=== PATIENT | male | born 1950 | race Caucasian/White ===

== ENCOUNTER → 2023-09-26 08:08 | Outpatient (REF) | payer MEDICARE, OTHER, SELFPAY ==
[2023-09-26 09:24] LABS: % Basophils 0.5 % (0-2); % Eosinophils 1.1 % (0-6); % Immature Granulocytes 0.5 % (0-0.5); % Lymphocytes 20.6 % (20.5-51.1); % Monocytes 12.5 % (1.7-9.3); % Neutrophils 64.8 % (42.2-75.2); Absolute Eosinophils 0.1 10^3/uL (0-0.7); Absolute Lymphocytes 1.3 10^3/uL (1.2-3.4); Absolute Monocytes 0.8 10^3/uL (0.1-0.6); Absolute Neutrophils 4.2 10^3/uL (1.4-6.5); Hematocrit 42.9 % (39.0-52.0); Hemoglobin 13.9 g/dL (13.0-18.0); Mean Corp Hgb Conc. 32.4 g/dL (33.0-37.0); Mean Corpuscular Hgb 28.1 pg (27.0-31.0); Mean Corpuscular Volume 86.8 fL (80.0-94.0); Mean Platelet Volume 11.1 fL (7.4-10.4); Nucleated Red Blood Cells % 0 % (-); Platelet Count 191 10^3/uL (130-400); Red Blood Cell Count 4.94 10^6/uL (4.70-6.10); Red Cell Dist. Width 13.6 % (11.5-14.5); White Blood Cell Count 6.5 10^3/uL (4.8-10.8)
[2023-09-26 09:53] LABS: ALT (SGPT) 38 U/L (0-50); AST (SGOT) 33 U/L (17-59); Albumin 4.6 g/dl (3.5-5.0); Alkaline Phosphatase 68 U/L (38-126); Blood Urea Nitrogen 14 mg/dl (9-20); Calcium 9.6 mg/dl (8.4-10.2); Carbon Dioxide 23 mmol/L (22-30); Chloride 107 mmol/L (98-107); Glucose 106 mg/dl (70-99); HDL Cholesterol 34 mg/dl; LDL Cholesterol, Calculated 79 mg/dl; Sodium 140 mmol/L (135-145); Total Bilirubin 0.8 mg/dl (0.2-1.3); Total Cholesterol 155 mg/dl (50-199); Total Protein 7.4 g/dl (6.3-8.2); Triglyceride 212 mg/dl (10-149); Very Low Density Lipoprotein 42 mg/dl (0-30); eGFR > 60.00
[2023-09-26 10:20] LABS: PSA, Total - Screen 2.71 ng/ml (0.0-4.0); TSH Reflex To Free T4 1.88 uIU/ml (0.47-4.68)
== END ==
LOC: REG 08:08
PROVIDERS: ATTENDING PHYSICIAN Family Medicine
DX: E78.2 Mixed hyperlipidemia (principal); R53.83 Other fatigue; Z51.81 Encounter for therapeutic drug level monitoring; Z12.5 Encounter for screening for malignant neoplasm of prostate
CPT/HCPCS: 36415; 80053; 80061; 84443; 85025; G0103

== ENCOUNTER → 2023-11-06 06:23 | Day surgery (SDC) | payer MEDICARE, OTHER, SELFPAY | LOC: GI 06:23 | PROVIDERS: ATTENDING PHYSICIAN Internal Medicine Gastroenterology | DX: Z12.11 Encounter for screening for malignant neoplasm of colon (principal); K64.8 Other hemorrhoids; K57.30 Diverticulosis of large intestine without perforation or abscess without bleeding; K63.5 Polyp of colon; Z86.010 Personal history of colon polyps | CPT/HCPCS: 45385; 45380; 88305 ==

== ENCOUNTER 2024-05-19 06:26 | Outpatient (RCR) | payer MEDICARE, OTHER, SELFPAY | END 2024-05-19 23:59 | disposition home or self-care (01) | LOC: RPT 06:26 | PROVIDERS: ATTENDING PHYSICIAN Family Medicine | DX: M54.16 Radiculopathy, lumbar region (principal); Z73.6 Limitation of activities due to disability | CPT/HCPCS: 97110; 97162 ==

== ENCOUNTER 2024-06-16 06:43 | Outpatient (RCR) | payer MEDICARE, OTHER, SELFPAY | END 2024-06-16 14:34 | disposition home or self-care (01) | LOC: RPT 06:43 | PROVIDERS: ATTENDING PHYSICIAN Family Medicine | DX: M54.16 Radiculopathy, lumbar region (principal); Z73.6 Limitation of activities due to disability | CPT/HCPCS: 97110; 97140 ==

== ENCOUNTER → 2024-09-29 07:49 | Outpatient (REF) | payer MEDICARE, OTHER, SELFPAY ==
[2024-09-29 08:46] LABS: % Basophils 0.5 % (0-2); % Eosinophils 1.1 % (0-6); % Immature Granulocytes 0.2 % (0-0.5); % Lymphocytes 29.9 % (20.5-51.1); % Monocytes 8.1 % (1.7-9.3); % Neutrophils 60.2 % (42.2-75.2); Absolute Eosinophils 0.1 10^3/uL (0-0.7); Absolute Lymphocytes 2.5 10^3/uL (1.2-3.4); Absolute Monocytes 0.7 10^3/uL (0.1-0.6); Absolute Neutrophils 5.1 10^3/uL (1.4-6.5); Hematocrit 44.2 % (39.0-52.0); Hemoglobin 13.8 g/dL (13.0-18.0); Mean Corp Hgb Conc. 31.2 g/dL (33.0-37.0); Mean Corpuscular Hgb 27.4 pg (27.0-31.0); Mean Corpuscular Volume 87.7 fL (80.0-94.0); Mean Platelet Volume 11.3 fL (7.4-10.4); Nucleated Red Blood Cells % 0 % (-); Platelet Count 221 10^3/uL (130-400); Red Blood Cell Count 5.04 10^6/uL (4.70-6.10); Red Cell Dist. Width 14.4 % (11.5-14.5); White Blood Cell Count 8.4 10^3/uL (4.8-10.8)
[2024-09-29 09:52] LABS: ALT (SGPT) 41 U/L (0-50); AST (SGOT) 30 U/L (17-59); Albumin 4.6 g/dl (3.5-5.0); Alkaline Phosphatase 59 U/L (38-126); Blood Urea Nitrogen 12 mg/dl (9-20); Calcium 9.3 mg/dl (8.4-10.2); Carbon Dioxide 26 mmol/L (22-30); Chloride 108 mmol/L (98-107); Glucose 102 mg/dl (70-99); HDL Cholesterol 31 mg/dl; LDL Cholesterol, Calculated 81 mg/dl; Sodium 140 mmol/L (135-145); Total Bilirubin 0.7 mg/dl (0.2-1.3); Total Cholesterol 144 mg/dl (50-199); Total Protein 7.4 g/dl (6.3-8.2); Triglyceride 161 mg/dl (10-149); Very Low Density Lipoprotein 32 mg/dl (0-30); eGFR > 60.00
[2024-09-29 10:26] LABS: PSA, Total - Screen 3.25 ng/ml (0.0-4.0); TSH Reflex To Free T4 1.79 uIU/ml (0.47-4.68)
== END ==
LOC: REG 07:49
PROVIDERS: ATTENDING PHYSICIAN Family Medicine
DX: R22.1 Localized swelling, mass and lump, neck (principal); E78.2 Mixed hyperlipidemia; Z12.5 Encounter for screening for malignant neoplasm of prostate
CPT/HCPCS: 36415; 80053; 80061; 84443; 85025; G0103

== ENCOUNTER 2024-11-30 01:39 | Inpatient (IN) | payer MEDICARE, OTHER, SELFPAY ==
[2024-11-29] VITALS (8 sets, daily range): BP systolic 146–210; BP diastolic 70–102; BMI 34.2
--- NOTE | 2024-11-29 22:41 | ED.GENMED ---
History of Present Illness
General
Chief Complaint: Chest Pain
Source: patient and ambulance crew
Time Seen by Provider: 11/29/24 22:40
History of Present Illness
History of Present Illness:
Tomorrow this patient is a 74-year-old male presents emergency department with reports of a 'sensation' in the left side of his chest radiating to his left arm that started approximately 930 tonight while getting ready to go to bed. Patient has
recently been suffering with lower back pain and just before bed put a 'heat patch' on the posterior back/hip area. With this sensation in his chest arm he also noted 'labored breathing' described as mild. He denies specific diaphoresis, nausea,
vomiting, neck pain, headache, dizziness, leg swelling, or other complaints. He has never had the symptoms before. Patient denies a prior cardiac history. He called medics, ECG was transmitted to me, and he was given 324 of aspirin on transport.
This has not changed his 3 out of 10 'sensation'. He was noted to be hypertensive on transport.
Past History
Past History
ED Past Medical History: None and Hypercholesterolemia
ED Past Surgical History: Other (Hernia repair X 3)
Social History
Tobacco: Former smoker (Smoked a pipe)
Alcohol: Occasional
Drug: None
Personal:
Living: alone
Phy Exam
Physical Exam
Physical Exam:
GENERAL: Alert , in no apparent distress
EYE: pupils equal and reactive
NECK: Supple, no significant adenopathy.
ENT: o/p clr, mmm.
CARDIAC: Regular rate and rhythm .
LUNGS: Clear breath sounds bilaterally, no acute respiratory distress, no wheezes/rales/rhonchi
ABDOMEN: Soft, without focal tenderness, no r/g, no cvat
NEUROLOGICAL: Alert and oriented, no focal neuro deficits
SKIN: Warm and dry, skin intact.
MUSCULOSKELETAL: No edema, well perfused.
PSYCH: Normal and appropriate interaction.
Scores
Heart Score for Chest Pain Patients
STEMI patient?: Not applicable
Course
Orders/Labs/Results
Orders:
Orders
11/29/24 22:33
Electrocardiogram (*1) Urgent
Reason for Study: Chest Pain
Cardiac Monitoring- Treatment ONCE
EKG- Treatment ONCE
IV Insert/Care/Rem.- Treatment PRN
O2 Therapy [RESP] Urgent
Titrate/Wean O2 to maintain O2 sat greater than (%): 90
Special Instructions: Maintain sats >/=90%
Pulse Ox/spot Check [RESP] Urgent
Quantity: 1
Special Instructions: ON ROOM AIR
11/29/24 22:40
Nitroglycerin Sublingual [Nitrostat (Sublingual)] 0.4 mg SL [id number] PRN
CR Chest Portable - 1 View Urgent
Comment:
Reason For Exam: cp
Reason Study Needs to be Portable: Unable to Transport
11/29/24 22:45
Heparin 4,000 units IV NOW STA
Heparin 83392 Units/250 ml 25,000 units in 250 ml IV PER PROTOCOL
Weight to be used for heparin protocol in kilograms (kg):: 102.1
Protocol:: Cardiac Tx/Acute Coronary
PTT Goal Range to be used:: PTT 73 to 111 seconds
Order type:: Initial
INITIAL Infusion Dose (UNITS/KG/hr) & then follow protocol:: 12 units/kg/hr
Infusion Dose in UNITS/hr & then follow protocol (UNITS/hr):: 1,000
INFUSION RATE in mL/hr & then follow protocol (mL/hr):: 10
PTT less than or equal to 64 seconds:: Increase rate by 200 units/hr (+ 2 mL/hr)
PTT 64.1 to 72.9 seconds:: Increase rate by 100 units/hr (+ 1 mL/hr)
PTT 73 to 111 seconds:: Target Range. No change in rate.
PTT 111.1 to 130.9 seconds:: Decrease rate by 100 units/hr (- 1 mL/hr)
PTT 131 to 199.9 seconds:: HOLD for 1 hr. Then decrease rate by 200 units/hr (- 2 mL/hr)
PTT greater than or equal to 200 seconds:: HOLD for 2 hrs & Notify Provider. Then decrease by 200 units/hr (-
2 mL/hr)
Lab follow-up:: Each change, PTT q6h until 2 consecutive are therapeutic. Then PTT
daily.
Nursing to Place Non Medication Order As Directed
Physician Order: PTT 6 hours after initial start of Heparin infusion
Above order entered?: Yes
11/29/24 22:50
Complete Blood Count/With Diff Urgent
Comprehensive Metabolic Panel Urgent
PTT Urgent
Prothrombin Time Urgent
Troponin I Urgent
11/29/24 23:37
EKG [Electrocardiogram (*1)] Urgent
Reason for Study: Chest Pain
EKG- Treatment ONCE
11/30/24 01:20
Admit/Transfer Patient As Directed
Co-Sign Provider:
Level of Care: Inpatient admission
Assign to:: IVU
Physician / Group: Luis
Diagnosis: NSTEMI / ACS
Reason for Hospitalization: NSTEMI / ACS
Expected length of stay greater than two midnights?: Yes
ELOS- Estimated Length of Stay in days: 2
I certify the patient meets the requirements for IP care: Yes
PRN Pain Medication Management As Directed
May give lesser potent ordered pain med per pt: Yes
preference::
Protocol:: Medication orders for pain may be administered in a
manner that supports deferring to patient preference
when the pt is:
- Requesting an ordered lesser potent pain medication.
Least to most potent pain medications are defined
as: acetaminophen < NSAID < tramadol < opioids
(morphine, oxycodone, hydromorphone).
- Requesting a lesser dose of the same medication IF
ORDERED.
- Requesting a less intrusive route of administration
if both routes are prescribed by the provider (PO <
IV).
11/30/24 01:21
Code Status As Directed
Resuscitation Status: Full Code
11/30/24 02:46
Acetaminophen [Tylenol] 650 mg PO Q4HPRN PRN
Morphine Sulfate 2 mg IV Q4HPRN PRN
11/30/24 02:46
CARDIOLOGY CONSULT Routine
Consulting Provider: Tad Craft
Was physician already notified: No
Reason for consult: NSTEMI / ACS
Consult Notification Routine
Specialty to Notify: Cardiology
Heparin Protocol- PTT Orders As Directed
PTT per Heparin protocol: -Obtain CBC and baseline PTT - if not already collected.
-Obtain PTT 6 hours from start of infusion. Then, every 6 hours until 2 consecutive
PTT's are therapeutic. Then, PTT Daily.
-With each rate change, obtain PTT every 6 hours until 2 consecutive PTT's are
therapeutic. Then, PTT Daily.
Activity As Directed
Activity Level: Bedrest
Bladder Scan As Directed
Follow Bladder Retention/Intermittent Cath Algorithm?: Yes
PRN if no void in __ hours: 6
Frequency: Per Retention Algorithm
If Bladder Scan Result >: 400
then:: Straight cath
EKG with chest pain [ECG as needed] As Directed
ECG as needed for:: Chest Pain
I/O [Intake/ Output] As Directed
Frequency: Per unit guidelines
Notify MD As Directed
Notify physician if: PTT is greater than or equal to 200.
Straight Cath As Directed
Frequency: Per Retention Algorithm
Additional Instructions: straight cath as needed per acute urinary retention algorithm for 24 hrs
Additional Instructions: for bladder scan greater than 400 mL
Vital Signs As Directed
Frequency: Per unit guidelines
Weight As Directed
Frequency: Daily
Oxygen Therapy [O2 Therapy] [RESP] Routine
Titrate/Wean O2 to maintain O2 sat greater than (%): 94
11/30/24 03:26
Basic Metabolic Panel IN AM
Cardiovascular Evaluation IN AM
Complete Blood Count/No Diff IN AM
Glycohemoglobin (HgbA1c) Routine
Troponin I Q6H
11/30/24 05:34
PTT Urgent
11/30/24 06:00
EKG [Electrocardiogram (*1)] IN AM
Reason for Study: Chest Pain
NPO
Allow oral meds: Yes
Allow clear liquids: Sips of Clears
Nitroglycerin Ointment [Nitro-Bid] 0.5 inch TOPICAL Q6
11/30/24 08:00
Aspirin Chewable [Low Strength Aspirin] 81 mg PO DAILY
Atorvastatin [Lipitor] 40 mg PO DAILY
11/30/24 08:46
Troponin I Q6H
11/30/24 14:46
Troponin I Q6H
12/02/24 06:00
Complete Blood Count/No Diff Q2D
Comment: notify provider: Platelet count < 130,000 or decrease by 50% from baseline
12/04/24 06:00
Complete Blood Count/No Diff Q2D
Comment: notify provider: Platelet count < 130,000 or decrease by 50% from baseline
12/06/24 06:00
Complete Blood Count/No Diff Q2D
Comment: notify provider: Platelet count < 130,000 or decrease by 50% from baseline
12/08/24 06:00
Complete Blood Count/No Diff Q2D
Comment: notify provider: Platelet count < 130,000 or decrease by 50% from baseline
12/10/24 06:00
Complete Blood Count/No Diff Q2D
Comment: notify provider: Platelet count < 130,000 or decrease by 50% from baseline
12/12/24 06:00
Complete Blood Count/No Diff Q2D
Comment: notify provider: Platelet count < 130,000 or decrease by 50% from baseline
12/14/24 06:00
Complete Blood Count/No Diff Q2D
Comment: notify provider: Platelet count < 130,000 or decrease by 50% from baseline
12/16/24 06:00
Complete Blood Count/No Diff Q2D
Comment: notify provider: Platelet count < 130,000 or decrease by 50% from baseline
Abnormal Lab Results
11/29/24
22:50
WBC 12.1 H 10^3/uL
(4.8-10.8)
MCHC 32.1 L g/dL
(33.0-37.0)
MPV 10.9 H fL
(7.4-10.4)
Abs Immat Gran (auto) 0.1 H 10^3/uL
(0-0.05)
Absolute Neuts (auto) 10.3 H 10^3/uL
(1.4-6.5)
Neutrophils % 85.2 H %
(42.2-75.2)
Lymphocytes % 9.9 L %
(20.5-51.1)
Carbon Dioxide 21 L mmol/L
(22-30)
Glucose 237 H mg/dl
(70-99)
11/29/24 22:50
11/29/24 22:50
Vital Signs
Initial and Last Documented VS:
Initial Vital Signs
BP
210/102
11/29/24 22:33
Last Documented Vital Signs
Temp Pulse Resp BP Pulse Ox
98 F 61 18 168/68 98
11/30/24 03:09 11/30/24 06:03 11/30/24 06:03 11/30/24 06:03 11/30/24 06:03
*Pulse Oximetry
SaO2: 99
Patient hypoxic: no
*Critical Care Note
Total Time (30-74mins, 75-104mins- exclusive of procedures): 32
Update Note
Update Note:
Patient presents to the Emergency Department with ____chest pain
Number and Complexity of Problems Addressed at the Encounter
� Chronic conditions affecting care:
� Acute Exacerbation and/or Progression of Chronic Illness:
� Differential Diagnosis includes: But not limited to STEMI, ACS, pericarditis, myocarditis, pleurisy, pneumonia, etc. etc.
Amount and/or Complexity of Data to be Reviewed and Analyzed
� I performed an independent evaluation of and my interpretation is:
EKG: Prehospital ECG noted to have ST inversions inferiorly and precordial leads associated with ST elevation in aVR. Subsequent ECG in the ER shows marked improvement. This was read by me, normal sinus rhythm, normal rate,
normal axis, no STEMI, very very subtle ST depression noted lateral precordial leads.
CT:
Xrays: Read by me and radiology NAD
Laboratory Studies: Troponin 0.031. Status post nitroglycerin, blood pressure markedly improved, pain now fully resolved, repeat ECG without any acute abnormalities to suggest STEMI.
Other:
� Review of other/old records reveals:
� Clinical information was obtained by an independent historian: EMS at bedside
� Prescriptions/Medications Considered but not given:
� Further testing considered but not performed:
Risk of Complications and/or Morbidity or Mortality of Patient Management
� Social determinants of health affecting care:
� Discussion with other providers (PCP, Hospitalists, Consultants, etc):
� Escalation of care including admission/observation vs risk of discharge considered: 10:44 PM patient seen and evaluated by me. Started on nitroglycerin, will monitor level of pain, clinical status, and blood pressure very
closely. Obvious concern for ACS although does not meet criteria for emergent catheterization at this time., Especially given meant in his ECG. Will continue to monitor closely for resolution of pain. Will start heparin drip. Do not have
clinical suspicion for dissection, pain not abrupt or sudden, no radiation to the back, etc. etc.
11:47 PM blood pressure improved, pain resolved, no acute changes on ECG. Heparin drip started, patient received aspirin and nitro. Will discuss with hospitalist for admission, cards consult in a.m. assuming patient remains pain-free, likely
catheterization.
ED Attending Note
-
Portions of this chart may have been created with voice recognition software.� Occasional wrong word or��sound alike� substitutions may have occurred due to the inherent limitations of voice recognition software.
Discharge Plan
Departure
Patient Disposition: Admit
Date of Disposition: 11/29/24
Time of Disposition: 23:47
Admit to doctor: luis
Presentation/result/management discussed w/ accepting MD/DO: Hospitalist
Condition: Fair
Discharge Problem:
Chest pain
Interventions
Interventions:
*Risk Screen - Suicide Last Done: 11/30/24 02:54
*General Assessment Last Done: 11/29/24 22:56
*Neglect/Abuse Screening Last Done: 11/29/24 22:56
*ED- Fall Risk Assessment Last Done: 11/29/24 22:56
*ED COVID-19 Vaccine History Last Done: 11/30/24 02:54
*Nursing Disposition Last Done: 11/30/24 02:32
ED- Cardiac Assessment Last Done: 11/29/24 23:00
Discharge Date and Time
Discharge Date/Time: 11/30/24 02:48
[2024-11-29] MEDS: NITROSTAT (SUBLINGUAL) 0.4 MG SL ×3 (22:55→23:26)
[2024-11-29 23:01] LABS: Hematocrit 43.6 % (39.0-52.0); Hemoglobin 14.0 g/dL (13.0-18.0); Mean Corp Hgb Conc. 32.1 g/dL (33.0-37.0); Mean Corpuscular Volume 84.0 fL (80.0-94.0); Nucleated Red Blood Cells % 0 % (-); Platelet Count 248 10^3/uL (130-400); Red Cell Dist. Width 13.9 % (11.5-14.5)
[2024-11-29 23:07] LABS: APTT 30.3 Sec (23.4-35.0); INR 0.96; PT 13.1 Sec (11.4-14.6)
[2024-11-29] MEDS: HEPARIN 4000 UNITS IV (23:15)
[2024-11-29] MEDS: HEPARIN 25000 UNITS/250 ML IV (23:16)
[2024-11-29 23:18] LABS: ALT (SGPT) 29 U/L (0-50); AST (SGOT) 28 U/L (17-59); Albumin 5.0 g/dl (3.5-5.0); Alkaline Phosphatase 64 U/L (38-126); Blood Urea Nitrogen 12 mg/dl (9-20); Calcium 9.5 mg/dl (8.4-10.2); Carbon Dioxide 21 mmol/L (22-30); Chloride 107 mmol/L (98-107); Estimated Creatinine Clearance 92 ml/min; Glucose 237 mg/dl (70-99); Potassium 4.4 mmol/L (3.5-5.1); Sodium 140 mmol/L (135-145); Total Protein 8.2 g/dl (6.3-8.2); eGFR > 60.00
[2024-11-29 23:21] LABS: Troponin I 0.031 ng/ml
[2024-11-30] VITALS (38 sets, daily range): BP systolic 115–188; BP diastolic 37–143; BMI 33.6
--- NOTE | 2024-11-30 01:24 | HPS.HSE ---
Family Physician
-
Family Physician: Fariba Martinez MD
Chief Complaint
-
Chest discomfort
History of Present Illness
Patient is a 74y M with PMH significant for obesity and dyslipidemia who presents to ED complaining of chest discomfort and dyspnea. Patient states that he recently developed L lower back discomfort. He was seen by his PCP today and given Rx
for a prednisone taper. He took his first dose around lunchtime with food. He felt well until this evening when he went to bed. He placed some heating patches on his low back. He notes that he was very restless, 'tossing and turning', which is
atypical for him. He then noted a numb / tingling sensation in the L chest - meena to your arm 'falling asleep'. He began to feel short of breath and flushed. No nausea or diaphoresis. He denies any prior history of similar symptoms. He called
[phone] and was brought to the ED for further evaluation and treatment.
Patient states that he has noted dyspnea with activity that has been gradually progressive over the past several months / one year.
Patient received 3 SL NTG and is currently resting comfortably in the ED. Pain free at present.
Medical History
Past Medical History
Past Medical History: Reports Other
Additional Past Medical History:
Obesity
Dyslipidemia
Past Surgical History: Reports Other
Additional Past Surgical History:
T&A
Hernia Repair
Social History
Tobacco: Non-smoker
Alcohol: None
Drug: None
Family History
Family History: Not pertinent
Allergies / Home Medications
Allergies reflects when Allergies were last updated in [facility].
Home Medications with original date entered in [facility]
Allergy/Medication List:
Allergies
Allergy/AdvReac Type Severity Reaction Status Date / Time
No Known Allergies Allergy Verified 11/29/24 22:36
Home Medications
atorvastatin 20 mg tablet 20 mg PO DAILY 10/04/22
ibuprofen 400 mg tablet 400 mg PO HS 10/04/22
omega 2-mbp-feq-fish oil 1,000 mg (120 mg-180 mg) capsule (Fish Oil) 2 cap PO DAILY 10/04/22
prednisone 10 mg tablets in a dose pack mg PO DAILY 11/29/24
Review of Systems
-
History Source: Patient
A 12 point ROS was completed and negative except as noted: Yes
Constitutional: Denies Fever, Fatigue or Chills
Respiratory: Reports Trouble Breathing; Denies Cough
Cardiac: Reports Chest Pain; Denies Diaphoresis, Palpitations or Syncope
Abdomen/GI: Denies Abdominal Pain, Nausea, Vomiting or Diarrhea
: Denies Dysuria or Frequency
Musculoskeletal: Reports Other (Back pain.); Denies Joint Pain or Edema
Neurological: Denies Dizzy or Headache
Physical Exam
Vital Signs
Vital Signs
Temp Pulse Resp BP Pulse Ox
98.1 F 75 20 163/68 98
11/29/24 22:37 11/30/24 01:15 11/30/24 01:15 11/30/24 01:00 11/30/24 01:15
Physical Exam
General: Other (74y M in no acute distress.)
HEENT: Moist mucous membranes and PERRLA
Respiratory: Clear; No Wheezes, Rales or Rhonchi
Cardiac: S1/S2 and Regular Rhythm; No Murmur
GI: Soft, Non Tender, Non Distended and Normal Bowel Sounds
Musculoskeletal: No Clubbing, No Cyanosis and No Edema
Neuro: AO x 3
Laboratory Results
-
11/29/24 22:50
11/29/24 22:50
Laboratory Results
PT 13.1 Sec (11.4-14.6) 11/29/24 22:50
INR 0.96 11/29/24 22:50
APTT 30.3 Sec (23.4-35.0) 11/29/24 22:50
Total Bilirubin 0.6 mg/dl (0.2-1.3) 11/29/24 22:50
AST 28 U/L (17-59) 11/29/24 22:50
ALT 29 U/L (0-50) 11/29/24 22:50
Alkaline Phosphatase 64 U/L (38-126) 11/29/24 22:50
Troponin I 0.031 ng/ml 11/29/24 22:50
Impression/Plan
-
A/P: Patient is a 74y M with PMH significant for obesity and dyslipidemia who presents to ED complaining of chest discomfort.
NSTEMI / ACS
- Admit for further evaluation and treatment.
- L sided chest discomfort this evening with associated dyspnea and flushing.
- Initial EKG with ST depressions in V3-6, II and aVF - improved on subsequent tracing after SL NTG.
- Currently pain free.
- No prior h/o heart disease, but patient admits to progressive exertional dyspnea x several months.
- IV heparin, ASA, statin, etc.
- Follow troponin to peak.
- Follow for new / recurrent symptoms.
- Cardiology consulted for additional recommendations / probable ischemic evaluation.
Hypertension without formal diagnosis
- BP elevated in the ED - significantly so on initial arrival.
- NTP for now and follow for improvement.
- Add beta-edgar, SHANTAL / ARB, etc as needed for BP control if persistent elevations.
Dyslipidemia
- Increase statin to high intensity dose.
Obesity due to excess calories
- Affects all aspects of care.
- Encourage healthy diet and activity as tolerated with goal of weight loss.
DVT Prophylaxis: On IV Heparin
Code Status: Full
[2024-11-30 03:40] LABS: Hematocrit 39.3 % (39.0-52.0); Hemoglobin 12.9 g/dL (13.0-18.0); Mean Corp Hgb Conc. 32.8 g/dL (33.0-37.0); Mean Corpuscular Volume 82.6 fL (80.0-94.0); Platelet Count 236 10^3/uL (130-400); Red Cell Dist. Width 13.9 % (11.5-14.5)
--- NOTE | 2024-11-30 03:42 | PTCARENOTE ---
Received pt from previous RN. Pt is AAOx3. NSR/sinus mary jane on the monitor. Pt on RA O2 sat 97%, lungs clear. Pt uses the urinal in bed. Skin c/d/i. Heparin gtt @ 1000 units/hr (see worklist). AM labs provided. CHG bath provided. Call bermudez in reach.
Safe environment maintained.
[2024-11-30 04:07] LABS: Blood Urea Nitrogen 11 mg/dl (9-20); Calcium 9.1 mg/dl (8.4-10.2); Carbon Dioxide 20 mmol/L (22-30); Chloride 111 mmol/L (98-107); Estimated Creatinine Clearance 91 ml/min; Glucose 115 mg/dl (70-99); HDL Cholesterol 41 mg/dl; LDL Cholesterol, Calculated 89 mg/dl; Potassium 4.3 mmol/L (3.5-5.1); Sodium 140 mmol/L (135-145); Very Low Density Lipoprotein 28 mg/dl (0-30); eGFR > 60.00
[2024-11-30 04:22] LABS: Troponin I 3.550 ng/ml
[2024-11-30] MEDS: NITRO-BID 0.5 INCH TOPICAL ×4 (05:25→23:15)
[2024-11-30 06:23] LABS: APTT 41.9 Sec (23.4-35.0)
[2024-11-30] MEDS: NITROSTAT (SUBLINGUAL) 0.4 MG SL (06:39)
--- NOTE | 2024-11-30 06:40 | PTCARENOTE ---
GORING CUTTER notified about pts BP, nitrostat SL given per GORING CUTTER (see MAR).
--- NOTE | 2024-11-30 07:25 | PTCARENOTE ---
0700 assumed care. patient in bed. Heparin infusing at 1,200/12 ml. Next PTT schedule for 12:30 Denies chest pain, nausea, dizziness, dyspnea. BP 160/72 MAP 97; Normal Sinus Bradycardia 56 RR 16; SpO2 97RA. NPO at this time. Call bermudez within reach
[2024-11-30] MEDS: LOW STRENGTH ASPIRIN 81 MG PO (07:29)
--- NOTE | 2024-11-30 07:45 | W.PN.HOSP.TC ---
Today's Communication/Plan
-
Heparin Drip
Cardiac cath
Assessment / Plan
Assessment / Plan
Physical Exam
General: Other (74y M in no acute distress.)
HEENT: Moist mucous membranes and PERRLA
Respiratory: Clear; No Wheezes, Rales or Rhonchi
Cardiac: S1/S2 and Regular Rhythm; No Murmur
GI: Soft, Non Tender, Non Distended and Normal Bowel Sounds
Musculoskeletal: No Cyanosis and No Edema
Neuro: AO x 3
Assessment/Plan
74y M with PMH significant for obesity and dyslipidemia who presented to the [facility] ED complaining of chest discomfort and dyspnea. Patient states that he recently developed L lower back discomfort. He was seen by his PCP on 11/29/24 and given Rx
for a prednisone taper. He took his first dose around lunchtime with food. He felt well until that same evening when he went to bed. He placed some heating patches on his lower back. He notes that he was very restless, 'tossing and turning',
which is atypical for him. He then noted a numb / tingling sensation in the L chest - meena to one's arm 'falling asleep'. He began to feel short of breath and flushed. No nausea or diaphoresis. He denied any prior history of similar symptoms.
He called 911 and was brought to the ED for further evaluation and treatment.
Patient states that he has noted dyspnea with activity that has been gradually progressive over the past several months / one year.
Patient received 3 SL NTG and symptoms resolved in the ED.
NSTEMI / ACS
- L sided chest discomfort with associated dyspnea and flushing.
- Initial EKG with ST depressions in V3-6, II and aVF - improved on subsequent tracing after SL NTG.
- Currently pain free.
- No prior h/o heart disease, but patient admits to progressive exertional dyspnea x several months.
- IV heparin, ASA, statin, etc.
- Follow troponin to peak.
- Follow for new / recurrent symptoms.
- Cardiology consulted for additional recommendations / probable ischemic evaluation -- cardiac cath panned
Hypertension without formal diagnosis
- BP elevated in the ED - significantly so on initial arrival.
- NTP for now and follow for improvement.
- Add beta-edgar, SHANTAL / ARB, etc as needed for BP control if persistent elevations.
Dyslipidemia
- Increase statin to high intensity dose.
Leukocytosis
- Likely from Prednisone
Low back pain outpatient -- RESOLVED
-Stopped Prednisone which was started on 11/29/24
-Leukocytosis is likely from Prednisone
Obesity due to excess calories
- Affects all aspects of care.
- Encourage healthy diet and activity as tolerated with goal of weight loss.
DVT Prophylaxis: On IV Heparin
Code Status: Full Code
Anticipated Discharge: 24 - 48 hours
Subjective/Interval History
-
Date of Service: November 30, 2024
Patient was seen and examined. He denied any chest pain or any other new symptoms.
Objective Data
-
Labs:
Laboratory Results
11/29/24 11/30/24 11/30/24
22:50 03:26 05:34
WBC 12.1 H 16.1 H
Hgb 14.0 12.9 L
Hct 43.6 39.3
Plt Count 248 236
PT 13.1
INR 0.96
APTT 30.3 41.9 H
Sodium 140 140
Potassium 4.4 4.3
Chloride 107 111 H
Carbon Dioxide 21 L 20 L
BUN 12 11
Creatinine 0.8 0.8
Glucose 237 H 115 H
Calcium 9.5 9.1
Total Bilirubin 0.6
AST 28
ALT 29
Alkaline Phosphatase 64
11/30/24
12:30
WBC
Hgb
Hct
Plt Count
PT
INR
APTT Pending
Sodium
Potassium
Chloride
Carbon Dioxide
BUN
Creatinine
Glucose
Calcium
Total Bilirubin
AST
ALT
Alkaline Phosphatase
Vital Signs:
Vital Signs
Temp Pulse Resp BP Pulse Ox
98 F 68 16 160/72 96
11/30/24 03:09 11/30/24 07:00 11/30/24 07:00 11/30/24 07:00 11/30/24 07:00
I&O
11/29/24 11/30/24 12/01/24
06:59 06:59 06:59
Intake Total 40 / 40
Output Total 900 / 900
Balance -860 / -860
[2024-11-30 08:12] LABS: Glycohemoglobin (HgbA1c) 5.7 % (4.0-5.6)
--- NOTE | 2024-11-30 08:24 | CON.CAR ---
Addendum entered and electronically signed by Tad Francisco MD 11/30/24 11:53:
Attending addendum: This is a 74-year-old gentleman with a past medical history notable for hyperlipidemia who presented to [facility] emergency department for evaluation of acute on chronic chest discomfort and exertional intolerance. The
patient reports that he has experienced a significant decline in his functional capacity over the past 6 to 12 months. 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 He states that
over the past 6-12 months that he has to stop and rest sitting down for a few minutes before continuing to work. His symptoms typically had only happened when walking up the hill towards work but several months ago began happening when walking down
the hill to go back to his car. Last evening he had just been started on a steroid taper for back discomfort and noted the onset of chest and shoulder discomfort beginning as he lay down to go to sleep. He called 911 and was transferred to . He
became chest pain free shortly after arrival. His initial troponin measured 0.031 ng/ml and increased to 10.1 ng/ml this am. He is now referred for cardiac evaluation
Physical Exam:
GEN: AAO x 3.��No acute distress
HEENT:��NC/AT, sclera are anicteric, hearing and nares are normal.�
NECK: Supple.��Normal JVP
LUNGS: Clear to bases bilaterally.��No wheezing or rhonchi
CV: Regular rate and rhythm.��Normal S1/S2.��Murmur: None
ABD : Soft, NT, ND, Bowel sounds are present.
EXT: No CCE. Good radial pulse
NEURO: No focal neurologic deficits
Troponin: current 10.1
IMPRESSION:
-NSTEMI
-Chronic stable anginal symptoms with recent change
-Hypertensive blood pressure readings
-Mixed hyperlipidemia
RECOMMENDATIONS:
-Planned referral for coronary angiography: risks and benefits explained
-Trend troponin to peak
-High intensity statin for goal LDL less than 55
-Guideline directed therapy for blood pressures
-Further management based on angiographic findings
Original Note:
Consultation
Consultation Request
Date/Time Consultation Requested: 11/30/2024
Date/Time Consultation Performed: 11/30/2024
Requesting Provider: Dr. Connell
Performing Provider: Rubia Gandhi PA-C for Dr. Francisco
Reason for Consultation: Chest pain, NSTEMI
Medical History
-
History of Present Illness:
Patient is a 74 year old male with past medical history significant for hyperlipidemia obesity and osteoarthritis who presents to emergency department 11/29/2024 with acute onset of left-sided chest discomfort, left arm pain and restlessness.
Patient reports he has been dealing with intermittent low back pain which he thinks was a result of injury secondary to overdoing it with stretching and claribel chi. He was prescribed prednisone yesterday by PCP and took 1 dose last evening. He then
went to bed and was very restless. In the middle of the night he woke with acute onset left-sided chest pain radiating down his arm and some mild shortness of breath. When symptoms persisted he called 911. Patient was provided aspirin en route
via EMS. He was found to be hypertensive on arrival with blood pressure of 210/102. Patient was provided sublingual nitroglycerin and started on IV heparin. Chest x-ray showed no acute cardiopulmonary abnormality. EKG demonstrated sinus rhythm
with nonspecific ST abnormality. Initial troponin was negative however repeat troponin was 3.55. Patient also started on Nitropaste for ongoing hypertension. Overnight he was then started on IV nitroglycerin given blood pressure remained elevated.
At time of this evaluation patient currently on IV heparin, IV nitroglycerin and is chest pain-free. Third set of troponin is pending
PMH:
Hyperlipidemia
Obesity
Osteoarthritis
Hernia with repair
Past Medical History
Past Medical History: Other (See HPI)
Past Surgical History: Tonsilectomy and Other (Inguinal Hernia repair 1984)
Social History
Tobacco: Non-Smoker
Alcohol: Other (rare)
Drug: None
Personal:
Living: Alone
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
Family History
Family History: CAD (father CAD in 60's)
Allergies / Home Medications
Allergy/AdvReac Type Severity Reaction Status Date / Time
No Known Allergies Allergy Verified 11/29/24 22:36
�Medication �Instructions �Recorded �Confirmed �Type
atorvastatin 20 mg tablet 20 mg PO DAILY 10/04/22 11/29/24 History
ibuprofen 400 mg tablet 400 mg PO HS 10/04/22 11/29/24 History
omega 0-rar-gap-fish oil 1,000 mg 2 cap PO DAILY 10/04/22 11/29/24 History
(120 mg-180 mg) capsule (Fish Oil)
prednisone 10 mg tablets in a dose mg PO DAILY 11/29/24 History
pack
Review of Systems
-
History Source: Patient
All other systems: Negative unless noted
Physical Exam
Vital Signs
Temp Pulse Resp BP Pulse Ox
98.3 F 68 16 160/72 96
11/30/24 08:00 11/30/24 07:00 11/30/24 07:00 11/30/24 07:00 11/30/24 07:00
GEN: No distress, awake, Ox3, lying in bed
HEENT: supple, anicteric, mmm
LUNGS: CTA, no wheezes/rales
CV: Reg, S1/S2, no murmur, rub or gallop
ABD: soft, BS+, NT/ND
EXT: No edema, clubbing or cyanosis
NEURO: Gross non-focal
SKIN: No rash, warm, dry
Lab Results
11/30/24 03:26
11/30/24 03:26
Troponin I 3.550 ng/ml H* D 11/30/24 03:26
Impression / Plan
-
PCP: Fariba Verduzco
Insurance Agents Supervisor: None prior to admission
Impression:
Presented 11/29/2024 with acute left sided chest pain, left arm pain and worsening dyspnea on exertion
NSTEMI
Hypertensive urgency
Hyperlipidemia
Obesity
Osteoarthritis
Hernia with repair
Echo 11/30/2024: pending
Plan:
Presented 11/29/2024 with acute left sided chest pain, left arm pain and worsening dyspnea on exertion.
Initial troponin unremarkable however repeat troponin elevated at 3.55 concerning for NSTEMI. Repeat troponin ordered
EKG with nonspecific ST-T wave abnormality.
Patient currently chest pain-free on IV heparin and nitroglycerin
Urgent echo ordered and pending
Will need ischemic evaluation therefore keep n.p.o. most likely would favor cardiac catheterization. Procedure discussed with the patient
Patient loaded with aspirin enroute to hospital. Continue aspirin 81 mg daily
Lipids on Lipitor 10 mg TC 158, HDL 41, LDL 89, triglycerides 143. Uptitrate atorvastatin to 40 mg
Hemoglobin A1c 5.7%
Hypertensive urgency
Needs better treatment of blood pressure.
Eventual addition of SHANTAL-I/ARB and/or calcium channel edgar. Unfortunately he has been bradycardic on telemetry which may limit initiation of beta-edgar
Plan was discussed with patient, hospitalist and nursing
HPI 11/30/2024:
Patient is a 74 year old male with past medical history significant for hyperlipidemia obesity and osteoarthritis who presents to emergency department 11/29/2024 with acute onset of left-sided chest discomfort, left arm pain and restlessness.
Patient reports he has been dealing with intermittent low back pain which he thinks was a result of injury secondary to overdoing it with stretching and claribel chi. He was prescribed prednisone yesterday by PCP and took 1 dose last evening. He then
went to bed and was very restless. In the middle of the night he woke with acute onset left-sided chest pain radiating down his arm and some mild shortness of breath. When symptoms persisted he called 911. Patient was provided aspirin en route
via EMS. He was found to be hypertensive on arrival with blood pressure of 210/102. Patient was provided sublingual nitroglycerin and started on IV heparin. Chest x-ray showed no acute cardiopulmonary abnormality. EKG demonstrated sinus rhythm
with nonspecific ST abnormality. Initial troponin was negative however repeat troponin was 3.55. Patient also started on Nitropaste for ongoing hypertension. Overnight he was then started on IV nitroglycerin given blood pressure remained elevated.
At time of this evaluation patient currently on IV heparin, IV nitroglycerin and is chest pain-free. Third set of troponin is pending
Data Reviewed
-
EKG: Report Reviewed by me, Discussed with Physician, Discussed with Nurse and Discussed with Patient
Radiology: Report Reviewed by me, Discussed with Physician, Discussed with Nurse and Discussed with Patient
Labs: Labs Reviewed by me, Discussed with Physician, Discussed with Nurse, Discussed with Patient and Discussed with Family
Old Records: Reviewed
[2024-11-30 08:44] LABS: Hepatitis C Antibody Negative (Negative)
[2024-11-30 09:53] LABS: Troponin I 10.100 ng/ml
--- NOTE | 2024-11-30 11:52 | PTCARENOTE ---
Transfer to earthmoving labourer
[2024-11-30 12:28] LABS: ACT-LR - POC 240 Seconds (116-155)
--- NOTE | 2024-11-30 12:58 | PTCARENOTE ---
12:50 Patient returned from cath lab radiological technologist. per report patient had left heart cath. [place] via Rt radial. Band placed at 12:25. per Cath staff recommendations, since patient received 6,000 Heparin to start taking air after one and half hour after it was
placed which schedule for 13:50 .
patient AAO x 3; BP 145/58 MAP 83; Bradycardic 52. Right arm: able to move finger, denies pain, no bleeding, no swelling, no bruising. VS will be checked per protocol postop. Diet changed to Low Cholesterol diet
--- NOTE | 2024-11-30 13:52 | ITS.CL.CATH ---
High Speed Operator - Catheterization
Cardiac Catheterization
Procedure Report:
LEFT HEART CATHETERIZATION
Date of Procedure: November 30, 2024
Referring: [facility] Emergency Department
PROCEDURES:
1. Left heart catheterization with coronary and single-plane left ventriculography
INDICATION: This is a 74-year-old gentleman with a past medical history notable for hyperlipidemia who presented to [facility] emergency department for evaluation of acute on chronic chest discomfort and exertional intolerance. The patient
reports that he has experienced a significant decline in his functional capacity over the past 6 to 12 months. 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 He states that over the
past 6-12 months that he has to stop and rest while walking to work. His symptoms improve over several minutes then he can continue to walk the rest of the way to work. His symptoms typically happened when walking up the hill towards work but
several months ago began noticing symptoms when walking down the hill as he returned to his car. Last evening he experienced the new onset of chest heaviness and left shoulder discomfort as he he lay down to go to sleep. He called 911 and was
transferred to . He became chest pain free shortly after arrival. His initial troponin measured 0.031 ng/ml and increased to 10.1 ng/ml this am.
ACCESS: Right radial artery, 6 Serbian sheath
HEMODYNAMICS : (mmHg)
AO (s/d) : 142/62, 82
LV (s/d) : 143/17
LVEDP : 31
CORONARY FINDINGS
DOMINANCE: Right
LEFT MAIN: Short and obstructive
LEFT ANTERIOR DESCENDING: The LAD arises normally from the left main and runs in the anterior interventricular groove. There is a 60% proximal LAD stenosis and tandem 90% proximal and mid LAD stenosis beginning just proximal to the first septal
signwriter and extending beyond a moderate caliber first diagonal branch. The LAD is moderately calcified. The mid LAD beyond the diagonal branch has minor irregularities but no focal obstructive stenosis in the distal vessel wraps around the
apex. A small-medium caliber first diagonal branch has an 80% ostial stenosis
CIRCUMFLEX: The circumflex is a medium caliber nondominant vessel that supplies a single sizable obtuse marginal branch. There is a 50% proximal circumflex stenosis and diffuse luminal irregularities in the large obtuse marginal branch.
RIGHT CORONARY ARTERY: 100% occluded proximally with the distal vessel filling via well-developed right to right and [id number] collaterals
VENTRICULOGRAPHY: Left ventriculography is performed in an VILLASENOR projection. The digital single-plane left ventricular ejection fraction is estimated greater than 65%
SEDATION: 37 minutes of procedural sedation was utilized. An independent faculty i on call medical assistant was present to assist with and help manage the patient's level of consciousness and physiologic status.
RADIATION SUMMARY: Fluoro Time (min): 3.3, Dose (mGy): 601, DAP (Gy.cm2) : 47.2
Closure Device: TR band
CONCLUSIONS
1. Proximal to mid LAD atherosclerotic disease and chronic total occlusion of the proximal RCA. Moderate coronary disease in the mid circumflex and high-grade stenosis at the origin of small to medium caliber diagonal branch
2. Preserved LV systolic function
RECOMMENDATIONS
1. Consult CT surgery
2. Continue to trend serial troponin levels and change statin from moderate to high intensity therapy. Will pursue guideline directed medical therapy for blood pressure control with a goal of less than 130/80
Copy to: Dr. Tad Francisco
--- NOTE | 2024-11-30 14:27 | PTCARENOTE ---
Addendum entered by Cher Rose RN 11/30/24 14:30:
wrong patient
Original Note:
1 unit PRBC : Ended at 14:25 VSS: 98.8 (PO)-HR 12 ST; BP via left upper arm: 114/66; RR 26 -SpO2: 96%/2L
--- NOTE | 2024-11-30 15:16 | CM ---
Pt was post cardiac cath today. Spoke with son Dat goss lives alone in an apartment with 2 steps to enter and an elevator.Prior to admission he drove and was independent. He uses no adaptive devices.
He has no hx of VN nor SNF
Pharmacy [facility] [address] [place]
PCP Dr Martinez
PLAN Will depend on hospital course of care
--- NOTE | 2024-11-30 15:39 | CONSULT.CT ---
Consultation
-
Date/Time Consultation Requested: 11/30/24 1330
Date/Time Consultation Performed: 11/30/24 1600
Requesting Provider: Dr. Tad Francisco
Performing Provider: DANITA Jhaveri for Dr. Duc Orlando
Reason for Consultation: NSTEMI, CABG evaluation
Patient History
Physicians
Family Physician: Dr. Fariba Verduzco
Outpatient Boiler Assistant Operator: None
Inpatient Boiler Assistant Operator: [facility]
History of Present Illness
Mr. Brando Sadler is a pleasant 74-year-old male with a PMHx significant for dyslipidemia, obesity, and familial CAD who presented to [facility] with complaints of progressive dyspnea on exertion and chest discomfort. Mr. Sadler reports his dyspnea has
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
extremity weakness, and dyspnea. He has recently endured lower back discomfort after lifting heavy boxes at work which led him to see his PCP on 11/29/2024. At that time, he was initiated on prednisone. That evening, he reported having
dull, left-sided, substernal chest pain that radiated to his left arm. He denied any diaphoresis, lightheadedness, dizziness, PND, orthopnea, abdominal distention, or lower extremity edema. This discomfort led him to call 911 in which he received
3 sublingual nitroglycerin with resolution of symptoms upon ED arrival. Initial EKG showed ST depression in V3-6, II, and aVF, with improvement of EKG changes with initiation of NTG. Troponin level was elevated and patient ruled-in for NSTEMI.
Cardiology was consulted in which TTE was obtained which showed normal EF, no regional wall motion abnormality, and no significant valvular heart disease. He underwent a left heart cath on 11/30/[address] Francisco which revealed 100% occlusion of
RCA and disease of proximal to mid LAD involving the diagonal. Cardiac surgery was consulted for consideration of CABG.
Past Medical History
Past Medical History: Angina, JEREZ and Other
Dyslipidemia, Obesity
Past Surgical History
Past Surgical History: Tonsilectomy and Other
Hernia repair
Family History
Father: at Age (60's)
Family Medical History: CAD, Diabetes and Sudden (Father 64, etiology unknown)
Social History
Alcohol: Occasional
Drug: None
Tobacco: Former Smoker
Personal:
Living: Alone
Employment: Employed
Allergies
Allergy/AdvReac Type Severity Reaction Status Date / Time
No Known Allergies Allergy Verified 11/29/24 22:36
Home Medications
�Medication �Instructions �Recorded �Confirmed �Type
atorvastatin 20 mg tablet 20 mg PO HS 10/04/22 11/30/24 History
ibuprofen 400 mg tablet 400 mg PO HS 10/04/22 11/29/24 History
omega 2-dzb-otq-fish oil 1,000 mg 2 cap PO HS 10/04/22 11/30/24 History
(120 mg-180 mg) capsule (Fish Oil)
prednisone 10 mg tablets in a dose mg PO DAILY 11/29/24 History
pack
Review of Systems
-
History Source: Patient
General: Reports No Symptoms
HEENT: Reports No Symptoms
Respiratory: Reports JEREZ
Cardiac: Reports No Symptoms
Abdomen/GI: Reports No Symptoms
: Reports No Symptoms
Musculoskeletal: Reports Other (lower back pain)
Skin: Reports No Symptoms
Neurological: Reports No Symptoms
Vascular: Reports No Symptoms
Physical Exam
Vital Signs
Temp 98.2 F 11/30/24 13:17
Temp route: Oral 11/30/24 13:17
Pulse 56 11/30/24 13:38
Rhythm: Sinus bradycardia 11/30/24 08:06
With- Sinus bradycardia 11/30/24 03:39
Resp Rate 21 11/30/24 11:15
Blood pressure 150/63 11/30/24 13:38
Position: Lying 11/30/24 13:17
MAP (cuff-Brad Monitor) 80 11/30/24 11:00
SaO2 97 11/30/24 11:00
Oxygen Mode of Delivery Room air 11/30/24 07:24
Can the patient verbally communicate their pain? Yes 11/30/24 08:06
Pain scale ratin 11/30/24 06:44
Actual Weight 100.1 kg 11/30/24 02:47
Body Mass Index (BMI) 33.6 11/30/24 02:47
Labs
11/30/24 03:26
11/30/24 03:26
PT 13.1 Sec (11.4-14.6) 11/29/24 22:50
APTT Cancelled 11/30/24 12:30
Hemoglobin A1c 5.7 % (4.0-5.6) H 11/30/24 03:26
Troponin I 10.100 ng/ml H* D 11/30/24 08:56
Exam
General: Well Developed, Well Nourished, No Apparent Distress and Comfortable
HEENT: Normocephalic, Moist Mucous Membranes, PERRLA and EOMI
Respiratory: Clear
Cardiac: S1/S2 and Regular Rhythm
GI: Soft, Non Tender, Non Distended and Normal Bowel Sounds
Skin: Warm, Dry and Other (R Radial TR band present)
Neuro: Awake, Alert, Oriented, AO x 3 and No Motor Deficits
Extremities: Pulses (+2 Radial B/L, +2 DP B/L)
Psych: Calm
Assessment / Plan
-
#Coronary Artery Disease with NSTEMI
- Continue care as directed by primary team
- Patient's case will be discussed with Attending Physician.
- Further details regarding surgical timing will be determined after Attending Physician's full evaluation.
- Routine preoperative CTS orders initiated:
- Pre-op labwork, including T & S
- Cerebrovascular US
- CT Chest
- STS risk stratification score will be calculated after preoperative testing is completed.
Data Reviewed
-
EKG: Report Reviewed by me
Flight Engineer Inspector: Report Reviewed by me
Echo: Report Reviewed by me
Labs: Labs Reviewed by me
--- NOTE | 2024-11-30 16:33 | PTCARENOTE ---
Band RT radial off . covered by 2X 2 and Tegaderm
--- NOTE | 2024-11-30 17:12 | PTCARENOTE ---
Heparin resumed per order at 16:30 per previous rate 12ml/1,200 units Next PTT schedule at 22:45. Patient will be taking for preop CT chest and CR chest 2 View. Then will be transfer to IVU. Report given prior to transfer
pt AAO x 3
BP 148/58 MAP 85 Normal Sinus Rhythm 63; RR 19 POx 98%RA. Denies chest pain no edema
Lungs clear ; SpO2: 98% RA Denies dyspnea
Abdomen soft non-tender +Bowel movement today
Urinates in a urina clear yellow urine
Peripheral line: RT capped flushed; Left: # 22 Heparin infusing at 12ml
--- NOTE | 2024-11-30 17:50 | PTCARENOTE ---
Received pt from ICU, VSS, monitor showing NSR. Denies CP/SOB at present. Right radial site with dressing c/d/i, no bleeding or hematoma noted. Hep gtt @ 1200u/hr. Oriented to room, call bermudez in reach.
[2024-11-30] MEDS: LIPITOR 80 MG PO (18:04)
[2024-11-30 19:06] LABS: Troponin I 6.060 ng/ml
[2024-11-30 22:22] LABS: B.E. 0.5 mmol/L; HCO3 24.6 mmol/L (21-28); O2 Saturation % 99.0 % (94-98); PCO2 37 mmHg (35-48); PO2 92 mmHg (83-108)
[2024-11-30 23:05] LABS: APTT 66.7 Sec (23.4-35.0)
--- NOTE | 2024-11-30 23:39 | PTCARENOTE ---
Tele monitor remains SB-NSR, HR in the 50-60's at rest. Pt denies any pain or SOB. Right radial dressing intact w/ positive pulse. Pt aware about right radial activity restrictions. IV Heparin gtt infusing at 1300units/hr, next ptt due at 05:15.
Patient ambulates self in room w/out difficulty, denied any dizziness. Call bermudez in reach.
[2024-12-01] VITALS (8 sets, daily range): BP systolic 135–168; BP diastolic 51–69; BMI 33.1
[2024-12-01] MEDS: HEPARIN 25000 UNITS/250 ML IV ×2 (03:26→19:06)
[2024-12-01] MEDS: NITRO-BID 0.5 INCH TOPICAL ×4 (05:33→22:24)
[2024-12-01 05:50] LABS: Hematocrit 42.7 % (39.0-52.0); Hemoglobin 13.4 g/dL (13.0-18.0); Mean Corp Hgb Conc. 31.4 g/dL (33.0-37.0); Mean Corpuscular Volume 85.9 fL (80.0-94.0); Platelet Count 254 10^3/uL (130-400); Red Cell Dist. Width 14.3 % (11.5-14.5)
[2024-12-01 05:54] LABS: INR 1.00; PT 13.5 Sec (11.4-14.6)
[2024-12-01 05:55] LABS: APTT 38.8 Sec (23.4-35.0)
[2024-12-01 05:56] LABS: APTT 46.3 Sec (23.4-35.0)
[2024-12-01 06:09] LABS: ALT (SGPT) 33 U/L (0-50); AST (SGOT) 47 U/L (17-59); Albumin 4.5 g/dl (3.5-5.0); Alkaline Phosphatase 68 U/L (38-126); Blood Urea Nitrogen 13 mg/dl (9-20); Calcium 9.4 mg/dl (8.4-10.2); Carbon Dioxide 25 mmol/L (22-30); Chloride 107 mmol/L (98-107); Estimated Creatinine Clearance 81 ml/min; Glucose 111 mg/dl (70-99); Magnesium 2.3 mg/dl (1.6-2.3); Potassium 4.4 mmol/L (3.5-5.1); Sodium 140 mmol/L (135-145); Total Protein 7.5 g/dl (6.3-8.2); eGFR > 60.00
--- NOTE | 2024-12-01 07:48 | W.PN.CARDCBS ---
Addendum entered and electronically signed by Arturo Reza MD 12/01/24 14:20:
I saw and examined the patient.
The Bicycle Fitter's note was reviewed and I agree with the note.
Comment: Briefly, 74-year-old man presenting with chest discomfort and ongoing dyspnea on exertion found to have elevated troponin consistent with NSTEMI. Underwent coronary angiography 11/30/2024 and found to have multivessel CAD. Troponin peaked
yesterday at 10.1. LV function is preserved by echo here.
Patient was resting comfortably this morning at time of my evaluation
No further chest discomfort or dyspnea today
Recommend aspirin, high intensity statin and heparin drip
Continue metoprolol and amlodipine as antianginals
Awaiting CT surgery input regarding possible surgical revascularization
Original Note:
Today's Communication / Plan
-
CT surgery consult
Increase atorvastatin to 80 mg
Add Toprol 12.5 mg and amlodipine 2.5 mg
Continue IV heparin drip
Impression / Plan
-
PCP: Fariba Verduzco
Back End Architect: None prior to admission
Impression:
Presented 11/29/2024 with acute left sided chest pain, left arm pain and worsening dyspnea on exertion
NSTEMI
Multivessel CAD
BACK FEED[place] LAYUP LINE of RCA with collaterals and multiple tandem lesions of LAD on cath
Hypertensive urgency
Hyperlipidemia
Obesity
Osteoarthritis
Hernia with repair
Echo 11/30/2024: EF 68%. Normal wall motion. No significant valve disease
Cardiac catheterization 11/30/2024: LAD: prox 60%, tandem 90% prox and mid stenosis. Diagonal 1: 80% ostial stenosis. LCX: 50% prox and LI in large OM. RCA: BACK FEEDER [place] LAYUP LINE with right to right and left to left collaterals. LVG EF 65%
Plan:
Presented 11/29/2024 with acute left sided chest pain, left arm pain and worsening dyspnea on exertion.
NSTEMI with peak troponin 10.1
MVCAD on cardiac cath 11/30/2024
CTS consulted for possible CABG. If deemed not suitable candidate then consider LAD stenting
Patient currently chest pain-free on heparin and Nitropaste
Echocardiogram with preserved ejection fraction, normal regional wall motion and no significant valve disease
Will add Toprol 12.5 mg daily. Will need to watch heart rate as patient can be bradycardic at times. Eventual SHANTAL/ARB.
Continue aspirin 81 mg daily
Lipids on Lipitor 20 mg TC 158, HDL 41, LDL 89, triglycerides 143. Uptitrated atorvastatin to 80 mg
Hemoglobin A1c 5.7%
Hypertensive urgency
Blood pressure better controlled although not optimal. Add low-dose Toprol 12.5 mg daily and amlodipine 2.5 mg daily. Uptitrate as needed.
Eventual addition of SHANTAL-I/ARB
Of note patient was not on any antihypertensive agents prior to admission
Plan was discussed with patient, hospitalist and nursing
HPI 11/30/2024:
Patient is a 74 year old male with past medical history significant for hyperlipidemia obesity and osteoarthritis who presents to emergency department 11/29/2024 with acute onset of left-sided chest discomfort, left arm pain and restlessness.
Patient reports he has been dealing with intermittent low back pain which he thinks was a result of injury secondary to overdoing it with stretching and claribel chi. He was prescribed prednisone yesterday by PCP and took 1 dose last evening. He then
went to bed and was very restless. In the middle of the night he woke with acute onset left-sided chest pain radiating down his arm and some mild shortness of breath. When symptoms persisted he called 911. Patient was provided aspirin en route
via EMS. He was found to be hypertensive on arrival with blood pressure of 210/102. Patient was provided sublingual nitroglycerin and started on IV heparin. Chest x-ray showed no acute cardiopulmonary abnormality. EKG demonstrated sinus rhythm
with nonspecific ST abnormality. Initial troponin was negative however repeat troponin was 3.55. Patient also started on Nitropaste for ongoing hypertension. Overnight he was then started on IV nitroglycerin given blood pressure remained elevated.
At time of this evaluation patient currently on IV heparin, IV nitroglycerin and is chest pain-free. Third set of troponin is pending
Progress Note - Back End Architect
Subjective
Date of Service: December 01, 2024
Patient seen and examined. Patient sitting in bed and denies chest pain.
Objective
Labs:
12/01/24 05:30
12/01/24 05:30
Labs
Hgb 13.4 g/dL (13.0-18.0) 12/01/24 05:30
Hct 42.7 % (39.0-52.0) 12/01/24 05:30
Plt Count 254 10^3/uL (130-400) 12/01/24 05:30
PT 13.5 Sec (11.4-14.6) 12/01/24 05:30
INR 1.00 12/01/24 05:30
APTT 38.8 Sec (23.4-35.0) H 12/01/24 05:30
APTT 46.3 Sec (23.4-35.0) H 12/01/24 05:30
Sodium 140 mmol/L (135-145) 12/01/24 05:30
Potassium 4.4 mmol/L (3.5-5.1) 12/01/24 05:30
BUN 13 mg/dl (9-20) 12/01/24 05:30
Creatinine 0.9 mg/dL (0.7-1.3) 12/01/24 05:30
Glucose 111 mg/dl (70-99) H 12/01/24 05:30
Troponins
11/29/24 11/30/24 11/30/24
22:50 03:26 08:56
Troponin I 0.031 3.550 H* D 10.100 H* D
11/30/24
18:20
Troponin I 6.060 H*
Vital Signs and I&O:
Vital Signs
Temp Pulse Resp BP Pulse Ox
98.5 F 59 18 154/63 95
12/01/24 03:32 12/01/24 04:00 12/01/24 03:32 12/01/24 05:33 12/01/24 03:32
Vital Signs
Temp Pulse Resp BP Pulse Ox
98.5 F 59 18 154/63 95
12/01/24 03:32 12/01/24 04:00 12/01/24 03:32 12/01/24 05:33 12/01/24 03:32
Intake & Output
11/29/24 11/30/24 12/01/24 12/02/24
06:59 06:59 06:59 06:59
Intake Total 40 / 40 439 / 439
Output Total 900 / 900 1200 / 1200
Balance -860 / -860 -761 / -761
Physical Exam
Physical Exam
GEN: No distress, awake, Ox3
HEENT: supple, anicteric, mmm
LUNGS: CTA, no wheezes/rales
CV: Reg, S1/S2, no murmur, rub or gallop
ABD: soft, BS+, NT/ND
EXT: No edema, clubbing or cyanosis. Right radial access site clean dry intact without evidence of hematoma
NEURO: Gross non-focal
SKIN: No rash, warm, dry, pink
[2024-12-01] MEDS: NORVASC 2.5 MG PO (08:46)
[2024-12-01] MEDS: LOW STRENGTH ASPIRIN 81 MG PO (08:46)
[2024-12-01] MEDS: TOPROL XL 12.5 MG PO (08:46)
--- NOTE | 2024-12-01 09:36 | PTCARENOTE ---
Assumed care at 0700. Patient sitting on side of bed. Heparin infusing per JUN. NSR HR 60's. Denies pain or shortness of bed. VSS. Right radial dressing CDI, call bermudez within reach
--- NOTE | 2024-12-01 13:05 | W.PN.HOSP.TC ---
Today's Communication/Plan
-
See plan
Assessment / Plan
Assessment / Plan
Physical Exam
General: Other (74y M in no acute distress.)
HEENT: Moist mucous membranes
Respiratory: Clear to Auscultation Bilaterally
Cardiac: S1/S2 and Regular Rhythm
GI: Soft, Non Tender, Non Distended and Normal Bowel Sounds
Musculoskeletal: No Cyanosis and No Edema
Neuro: AO x 3
Assessment/Plan
74 y/o male with past medical history significant for obesity and dyslipidemia who presented to the [facility] ED complaining of chest discomfort and dyspnea. Patient stated that he recently developed left lower back discomfort. He was seen by his PCP on
11/29/24 and given Rx for a prednisone taper. He took his first dose around lunchtime with food. He felt well until that same evening when he went to bed. He placed some heating patches on his lower back. He notes that he was very restless,
'tossing and turning', which is atypical for him. He then noted a numb / tingling sensation in the L chest - meena to one's arm 'falling asleep'. He began to feel short of breath and flushed. No nausea or diaphoresis. He denied any prior history
of similar symptoms. He called 911 and was brought to the ED for further evaluation and treatment.
Patient states that he has noted dyspnea with activity that has been gradually progressive over the past several months / one year.
Patient received 3 SL NTG and symptoms resolved in the ED.
NSTEMI / ACS
- L sided chest discomfort with associated dyspnea and flushing.
- Initial EKG with ST depressions in V3-6, II and aVF - improved on subsequent tracing after SL NTG.
- Currently pain free.
- No prior h/o heart disease, but patient admits to progressive exertional dyspnea x several months.
- Continue IV heparin drip
- Continue Aspirin, statin -- increased to high intensity, beta edgar
- Follow troponin to peak.
- Follow for new / recurrent symptoms.
- Cardiology consulted for additional recommendations / probable ischemic evaluation -- cardiac cath shows: 'Proximal to mid LAD atherosclerotic disease and chronic total occlusion of the proximal RCA. Moderate coronary
disease in the mid circumflex and high-grade stenosis at the origin of small to medium caliber diagonal branch; Preserved LV systolic function'
- Cardiothoracic surgery consulted
Hypertension without formal diagnosis
- BP elevated in the ED - significantly so on initial arrival.
- NTP for now and follow for improvement.
- Amlodipine added
Dyslipidemia
- Increase statin to high intensity dose -- Lipitor 80 mg daily
Leukocytosis
- Likely from Prednisone, which has been stopped
Low back pain outpatient -- RESOLVED
-Stopped Prednisone which was started on 11/29/24
-Leukocytosis is likely from Prednisone
-Tylenol and warm compresses
Obesity due to excess calories
- Affects all aspects of care.
- Encourage healthy diet and activity as tolerated with goal of weight loss.
DVT Prophylaxis: On IV Heparin
Code Status: Full Code
Anticipated Discharge: > 48 hours
Subjective/Interval History
-
Date of Service: December 01, 2024
Patient was seen and examined. He denied any chest pain, shortness of breath or any other complaints.
Objective Data
-
Labs:
Laboratory Results
12/01/24 12/01/24 12/01/24
05:30 05:30 12:53
WBC 14.0 H
Hgb 13.4
Hct 42.7
Plt Count 254
PT 13.5
INR 1.00
APTT 38.8 H 46.3 H Pending
Sodium 140
Potassium 4.4
Chloride 107
Carbon Dioxide 25
BUN 13
Creatinine 0.9
Glucose 111 H
Calcium 9.4
Total Bilirubin 0.8
AST 47
ALT 33
Alkaline Phosphatase 68
Vital Signs:
Vital Signs
Temp Pulse Resp BP Pulse Ox
98 F 68 18 150/55 100
12/01/24 11:52 12/01/24 13:00 12/01/24 11:52 12/01/24 11:57 12/01/24 11:52
I&O
11/30/24 12/01/24 12/02/24
06:59 06:59 06:59
Intake Total 40 / 40 439 / 439
Output Total 900 / 900 1200 / 1200
Balance -860 / -860 -761 / -761
[2024-12-01 13:24] LABS: APTT 63.2 Sec (23.4-35.0)
[2024-12-01] MEDS: TYLENOL 1000 MG PO ×2 (13:37→22:24)
--- NOTE | 2024-12-01 15:27 | CM ---
Reviewed chart. Mr. Sadler was transferred to IVU. Met with Mr. Sadler to review discharge plans. He states prior to admission he resides alone in apartment with two steps to enter. He states he uses an elevator to get to his second floor apartment.
He states prior to admission he was independent with ambulation and adls. He states he does not have any DME in the home. He states he has a prescription plan with [facility] and uses [facility]. Medical work-up in progress. The discharge
plan is to return home when medically stable.
[2024-12-01] MEDS: LIPITOR 80 MG PO (17:47)
--- NOTE | 2024-12-01 18:13 | W.PN.UPDATE ---
Update Note
Progress Note Update
Procedure Type:�Isolated CABG
Perioperative Outcome Estimate %
Operative Mortality 1.19%
Morbidity & Mortality 5.92%
Stroke 0.951%
Renal Failure 0.754%
Reoperation 1.8%
Prolonged Ventilation 3.52%
Deep Sternal Wound Infection 0.163%
Long Hospital Stay (>14 days) 2.7%
Short Hospital Stay (<6 days)* 57.1%
Clinical Summary
Planned Surgery: Isolated CABG, Urgent, First cardiovascular surgery
Demographics: 74 year old, White, male, 100.1kg, 173cm, BMI: 33.4 kg/m�
Lab Values: Creatinine: 0.9 mg/dL, Hematocrit: 42.7%, WBC Count: 14 10�/�L, Platelet Count: 907881 cells/�L
Substance Abuse: Former smoker, Alcohol use: 2-7 drinks/week
Risk Factors / Comorbidities: Family Hx of CAD
Cardiac Status: Ejection Fraction = 68%
Coronary Artery Disease: 3 vessels diseased, Proximal LAD Stenosis >=70%, Non-ST Elevation HI, HI: 1 to 7 Days
Valve Disease: Trivial/Trace MR, Trivial/Trace TR
[2024-12-01 20:37] LABS: APTT 91.5 Sec (23.4-35.0)
--- NOTE | 2024-12-01 23:15 | PTCARENOTE ---
Assumed care of the pt @ 1900. Pt is AAOx3 sitting up in chair. Heparin gtt infusing @ 1700 units/HR. SR on the monitor denies cp. Call bermudez within reach.
[2024-12-02] VITALS (7 sets, daily range): BP systolic 143–183; BP diastolic 57–96; BMI 33.0
[2024-12-02 02:57] LABS: Hematocrit 39.1 % (39.0-52.0); Hemoglobin 12.6 g/dL (13.0-18.0); Mean Corp Hgb Conc. 32.2 g/dL (33.0-37.0); Mean Corpuscular Volume 83.4 fL (80.0-94.0); Platelet Count 218 10^3/uL (130-400); Red Cell Dist. Width 14.3 % (11.5-14.5)
[2024-12-02 03:17] LABS: APTT 112.5 Sec (23.4-35.0)
[2024-12-02 03:23] LABS: Blood Urea Nitrogen 13 mg/dl (9-20); Calcium 9.1 mg/dl (8.4-10.2); Carbon Dioxide 22 mmol/L (22-30); Chloride 110 mmol/L (98-107); Estimated Creatinine Clearance 81 ml/min; Glucose 116 mg/dl (70-99); Magnesium 2.3 mg/dl (1.6-2.3); Potassium 4.4 mmol/L (3.5-5.1); Sodium 139 mmol/L (135-145); eGFR > 60.00
[2024-12-02] MEDS: TYLENOL 1000 MG PO ×3 (04:56→22:33)
[2024-12-02] MEDS: NITRO-BID 0.5 INCH TOPICAL ×3 (04:56→17:32)
--- NOTE | 2024-12-02 08:06 | W.PN.UPDATE ---
Update Note
Progress Note Update
CARDIAC SURGERY ATTENDING:
It was my pleasure to meet with Mr. Brando Sadler at his bedside. He is a very pleasant 74 y/o man with MVCAD and recent NSTEMI. He will benefit from surgical coronary revascularization. I anticipate ROBB to LAD, GSV to OM, and GSV to RPDA. His
diagonal branches will be evaluated intraoperatively, but these appear quite small and may not be suitable for bypass. I will perform concurrent exclusion of his left atrial appendage. I had a long discussion with Mr. Sadler. We reviewed his
pathology, discussed the proposed operative interventions, reviewed the periprocedural risks (including, but not limited to, , stroke, ND, arrythmia, PNA, YAJAIRA/F, infection, and bleeding), discussed the in-hospital postoperative course, and
reviewed the expected outpatient recovery. All questions were answered to the best of my abilities. Pt. agreeable to proceed.
Thank you,
Duc Orlando M.D.
[phone]
--- NOTE | 2024-12-02 08:36 | W.PN.CARDCBS ---
Addendum entered and electronically signed by Arturo Reza MD 12/02/24 13:02:
I saw and examined the patient.
The Strawhat Sizer's note was reviewed and I agree with the note.
Comment: Briefly, 74-year-old man presenting with chest discomfort and ongoing dyspnea on exertion found to have elevated troponin consistent with NSTEMI. Underwent coronary angiography 11/30/2024 which identified multivessel CAD. Troponin peaked
yesterday at 10.1. LV function is preserved by echo here.
No further chest discomfort or dyspnea today
Medical management of NSTEMI with aspirin, high intensity statin, BB and heparin drip
Amlodipine and nitro paste as additional antianginals
Tentatively scheduled for surgical revascularization tomorrow
Rest per Madonna Tanner
Original Note:
Today's Communication / Plan
-
Continue aspirin, Nitropaste, and IV heparin.
Plan is for CABG in AM per CT surgery.
NPO after midnight
Impression / Plan
-
PCP: Fariba Verduzco
Bicycle Designer: None prior to admission
Impression:
Presented 11/29/2024 with acute left sided chest pain, left arm pain and worsening dyspnea on exertion
NSTEMI
Multivessel CAD
[place]RES[place] BROOMCORN of RCA with collaterals and multiple tandem lesions of LAD on cath
Hypertensive urgency
Hyperlipidemia
Obesity
Osteoarthritis
Hernia with repair
Echo 11/30/2024: EF 68%. Normal wall motion. No significant valve disease
Cardiac catheterization 11/30/2024: LAD: prox 60%, tandem 90% prox and mid stenosis. Diagonal 1: 80% ostial stenosis. LCX: 50% prox and LI in large OM. RCA: [place]RES[place] BROOMCORN with right to right and left to left collaterals. LVG EF 65%
Plan:
-Presented with chest pain, L arm pain, and worsening JEREZ. Admitted with NSTEMI. Trop peaked at 10.1.
-Found to have MV CAD by cath 11/30/2024. Plan is for tentative CABG in AM. NPO after midnight.
-Remains chest pain-free on IV heparin and Nitropaste.
-Continue aspirin 81 mg daily.
-Echo 11/30/2024 with preserved EF and no significant valvular disease as noted above.
-Lipitor increased to 80 mg daily this admission. LDL 89.
-Blood pressure improving with adjustment of medications. Continue to adjust BP medications following CABG in AM.
-Hgb A1c 5.7%
HPI 11/30/2024:
Patient is a 74 year old male with past medical history significant for hyperlipidemia obesity and osteoarthritis who presents to emergency department 11/29/2024 with acute onset of left-sided chest discomfort, left arm pain and restlessness.
Patient reports he has been dealing with intermittent low back pain which he thinks was a result of injury secondary to overdoing it with stretching and claribel chi. He was prescribed prednisone yesterday by PCP and took 1 dose last evening. He then
went to bed and was very restless. In the middle of the night he woke with acute onset left-sided chest pain radiating down his arm and some mild shortness of breath. When symptoms persisted he called 911. Patient was provided aspirin en route
via EMS. He was found to be hypertensive on arrival with blood pressure of 210/102. Patient was provided sublingual nitroglycerin and started on IV heparin. Chest x-ray showed no acute cardiopulmonary abnormality. EKG demonstrated sinus rhythm
with nonspecific ST abnormality. Initial troponin was negative however repeat troponin was 3.55. Patient also started on Nitropaste for ongoing hypertension. Overnight he was then started on IV nitroglycerin given blood pressure remained elevated.
At time of this evaluation patient currently on IV heparin, IV nitroglycerin and is chest pain-free. Third set of troponin is pending
Progress Note - Bicycle Designer
Subjective
Date of Service: December 02, 2024
Remains chest pain free.
Objective
Labs:
12/02/24 02:36
12/02/24 02:36
Labs
Hgb 12.6 g/dL (13.0-18.0) L 12/02/24 02:36
Hct 39.1 % (39.0-52.0) 12/02/24 02:36
Plt Count 218 10^3/uL (130-400) 12/02/24 02:36
PT 13.5 Sec (11.4-14.6) 12/01/24 05:30
INR 1.00 12/01/24 05:30
APTT 112.5 Sec (23.4-35.0) H 12/02/24 02:36
Sodium 139 mmol/L (135-145) 12/02/24 02:36
Potassium 4.4 mmol/L (3.5-5.1) 12/02/24 02:36
BUN 13 mg/dl (9-20) 12/02/24 02:36
Creatinine 0.9 mg/dL (0.7-1.3) 12/02/24 02:36
Glucose 116 mg/dl (70-99) H 12/02/24 02:36
Troponins
11/29/24 11/30/24 11/30/24
22:50 03:26 08:56
Troponin I 0.031 3.550 H* D 10.100 H* D
11/30/24
18:20
Troponin I 6.060 H*
Vital Signs and I&O:
Vital Signs
Temp Pulse Resp BP Pulse Ox
98.0 F 64 18 155/72 98
12/02/24 08:25 12/02/24 02:25 12/02/24 08:25 12/02/24 02:25 12/02/24 08:25
Vital Signs
Temp Pulse Resp BP Pulse Ox
98.0 F 64 18 155/72 98
12/02/24 08:25 12/02/24 02:25 12/02/24 08:25 12/02/24 02:25 12/02/24 08:25
Intake & Output
11/30/24 12/01/24 12/02/24 12/03/24
06:59 06:59 06:59 06:59
Intake Total 40 / 40 439 / 439 250 / 250
Output Total 900 / 900 1200 / 1200 700 / 700
Balance -860 / -860 -761 / -761 -450 / -450
Physical Exam
Physical Exam
GEN: No distress, awake, alert, oriented x3
HEENT: supple, anicteric, mmm
LUNGS: CTA b/l, no wheezes/rales
CV: Reg, S1/S2, no murmur
EXT: No edema, clubbing or cyanosis
NEURO: Gross non-focal
SKIN: No rash, warm, dry, pink
--- NOTE | 2024-12-02 08:41 | W.PN.HOSP.TC ---
Today's Communication/Plan
-
Continue Heparin Drip
Transfer to cardiothoracic surgery service tomorrow
Assessment / Plan
Assessment / Plan
Physical Exam
General: Other (74y M in no acute distress.)
HEENT: Moist mucous membranes
Respiratory: Clear to Auscultation Bilaterally
Cardiac: S1/S2 and Regular Rhythm
GI: Soft, Non Tender, Non Distended and Normal Bowel Sounds
Musculoskeletal: No Cyanosis and No Edema
Neuro: AO x 3
Assessment/Plan
74 y/o male with past medical history significant for obesity and dyslipidemia who presented to the [facility] ED complaining of chest discomfort and dyspnea. Patient stated that he recently developed left lower back discomfort. He was seen by his PCP on
11/29/24 and given Rx for a prednisone taper. He took his first dose around lunchtime with food. He felt well until that same evening when he went to bed. He placed some heating patches on his lower back. He notes that he was very restless,
'tossing and turning', which is atypical for him. He then noted a numb / tingling sensation in the L chest - meena to one's arm 'falling asleep'. He began to feel short of breath and flushed. No nausea or diaphoresis. He denied any prior history
of similar symptoms. He called 911 and was brought to the ED for further evaluation and treatment.
Patient states that he has noted dyspnea with activity that has been gradually progressive over the past several months / one year.
Patient received 3 SL NTG and symptoms resolved in the ED.
NSTEMI/ACS
- L sided chest discomfort with associated dyspnea and flushing.
- Initial EKG with ST depressions in V3-6, II and aVF - improved on subsequent tracing after SL NTG.
- Currently pain free.
- No prior h/o heart disease, but patient admits to progressive exertional dyspnea x several months.
- Continue IV heparin drip
- Continue Aspirin, statin -- increased to high intensity, beta edgar
- Continue Amlodipine and Nitro paste as additional antianginals
- Follow for new / recurrent symptoms.
- Cardiology consulted for additional recommendations / probable ischemic evaluation -- cardiac cath shows: 'Proximal to mid LAD atherosclerotic disease and chronic total occlusion of the proximal RCA. Moderate coronary
disease in the mid circumflex and high-grade stenosis at the origin of small to medium caliber diagonal branch; Preserved LV systolic function'
- Cardiothoracic surgery consulted
Hypertension without formal diagnosis
- BP elevated in the ED - significantly so on initial arrival.
- NTP for now and follow for improvement.
- Amlodipine added
Dyslipidemia
- Increase statin to high intensity dose -- Lipitor 80 mg daily
Leukocytosis
- Likely from Prednisone, which has been stopped -- I have let patient's PCP know
Low back pain outpatient -- RESOLVED
-Stopped Prednisone which was started on 11/29/24
-Leukocytosis is likely from Prednisone
-Tylenol and warm compresses
Obesity due to excess calories
- Affects all aspects of care.
- Encourage healthy diet and activity as tolerated with goal of weight loss.
DVT Prophylaxis: On IV Heparin
Code Status: Full Code
Anticipated Discharge: > 48 hours
Subjective/Interval History
-
Date of Service: December 02, 2024
Patient was seen and examined. He denied any chest pain, shortness of breath or any other symptoms or complaints.
Objective Data
-
Labs:
Laboratory Results
12/02/24 12/02/24
02:36 10:00
WBC 11.6 H
Hgb 12.6 L
Hct 39.1
Plt Count 218
APTT 112.5 H Pending
Sodium 139
Potassium 4.4
Chloride 110 H
Carbon Dioxide 22
BUN 13
Creatinine 0.9
Glucose 116 H
Calcium 9.1
Vital Signs:
Vital Signs
Temp Pulse Resp BP Pulse Ox
98.0 F 64 18 155/72 98
12/02/24 08:25 12/02/24 02:25 12/02/24 08:25 12/02/24 02:25 12/02/24 08:25
I&O
12/01/24 12/02/24 12/03/24
06:59 06:59 06:59
Intake Total 439 / 439 250 / 250
Output Total 1200 / 1200 700 / 700
Balance -761 / -761 -450 / -450
--- NOTE | 2024-12-02 08:52 | CM ---
Addendum entered by Mechelle Maharaj 12/02/24 09:08:
The tentative CABG is on Friday12/03/24.
Original Note:
Reviewed chart. Met with Mr Sadler to review discharge plans. He state he may be going for heart surgery tomorrow. Met with Mr. Sadler to review discharge plans. He states prior to admission he resides alone in apartment with two steps to enter. He
states he uses an elevator to get to his second floor apartment. He states prior to admission he was independent with ambulation and adls. He states he does not have any DME in the home. He states he has a prescription plan with [facility] and
uses [email or web address]. He states he has several friends in the area that can come and check on him when he goes home. Medical work-up in progress. The discharge plan is to return home with his supportive friends checking on him and a home visit by
the Transitional Care Nurse when medically stable.
We reviewed pre-op and post-op routines. We briefly reviewed the shower instructions. Gave him the Cardiothoracic Surgery Educational Booklet. We reviewed restrictions including sternal precautions and driving restrictions. Also discussed a home
visit home visit by the Transitional Care Nurse. He is agreeable to a home visit. The tentative plan is for CABG on Friday12/02/24.
[2024-12-02] MEDS: LOW STRENGTH ASPIRIN 81 MG PO (09:15)
[2024-12-02] MEDS: TOPROL XL 12.5 MG PO (09:15)
[2024-12-02] MEDS: HEPARIN 25000 UNITS/250 ML IV (09:17)
[2024-12-02 10:38] LABS: APTT 116.6 Sec (23.4-35.0)
[2024-12-02] MEDS: LIPITOR 80 MG PO (17:32)
[2024-12-02 17:40] LABS: APTT 95.9 Sec (23.4-35.0)
--- NOTE | 2024-12-02 18:27 | PTCARENOTE ---
Pt OOB walking in halls. He denies any discomfort. Pt using IS to 2500mls with good technique. Pre op teaching completed, pt states understanding. Heparin infusion in progress, therapeutic once only. Telemetry shows sinus rhythm. [facility] with surgery on 12/03.
--- NOTE | 2024-12-02 20:00 | PTCARENOTE ---
Assumed care of the patient at 1900. Patient OOB to chair, AOx3, pleasant. SR on CM, heart tones audible, no edema, pulses palpable. Lungs clear on RA. Abdomen SNT, round, patient endorses passing flatus. Voiding without difficulty in the urinal.
Radial cath site CDI PAN WASHER. OOB ad moe without difficulty. PIVx2. Denies CP, dizziness, SOB. Heparin gtt maintained. POC discussed, assessment of needs ongoing.
[2024-12-03] VITALS (18 sets, daily range): BP systolic 99–177; BP diastolic 50–86; BMI 32.9
--- NOTE | 2024-12-03 | PTCARENOTE ---
Patient assisted with CVOR prep - clipped in a surgical fashion, CHG shower completed, in bed, VSS, sleeping between care.
[2024-12-03] MEDS: NITRO-BID 0.5 INCH TOPICAL (00:30)
[2024-12-03] MEDS: HEPARIN 25000 UNITS/250 ML IV (00:30)
[2024-12-03 01:03] LABS: APTT 83.2 Sec (23.4-35.0)
--- NOTE | 2024-12-03 04:00 | PTCARENOTE ---
Patient sleeping between care, VSS. Await CVOR call.
[2024-12-03 05:07] LABS: Blood Urea Nitrogen 11 mg/dl (9-20); Calcium 8.5 mg/dl (8.4-10.2); Carbon Dioxide 25 mmol/L (22-30); Chloride 109 mmol/L (98-107); Estimated Creatinine Clearance 81 ml/min; Glucose 116 mg/dl (70-99); Potassium 4.2 mmol/L (3.5-5.1); Sodium 141 mmol/L (135-145); eGFR > 60.00
[2024-12-03 05:29] LABS: APTT 97.2 Sec (23.4-35.0)
[2024-12-03] MEDS: BACTROBAN 2% OINTMENT 1 APPLIC NASAL ×2 (06:26→20:28)
[2024-12-03] MEDS: PROTONIX 40 MG PO (06:26)
[2024-12-03] MEDS: LOPRESSOR 12.5 MG PO (06:26)
[2024-12-03] MEDS: MAGNESIUM OXIDE 500 MG PO (06:26)
[2024-12-03] MEDS: TOPROL XL PO (06:28)
[2024-12-03] MEDS: LOW STRENGTH ASPIRIN PO (06:28)
[2024-12-03] MEDS: NITRO-BID TOPICAL ×2 (06:28→12:34)
[2024-12-03] MEDS: TYLENOL 1000 MG PO ×2 (06:29→22:17)
--- NOTE | 2024-12-03 07:04 | PTCARENOTE ---
Patient wiped with CHG, pre-op medications administered. NPO since midnight, assessment of needs ongoing.
[2024-12-03 07:55] LABS: Urine Character Clear (Clear)
[2024-12-03 07:56] LABS: ACT+ - POC 123 Seconds (82-134)
[2024-12-03 08:10] LABS: Urine Squamous Cell 0-2 /LPF (Few); Urine Urothelial Cell 0-2 /LPF (FEW)
--- NOTE | 2024-12-03 08:15 | CM ---
Reviewed chart. Mr. Sadler is in the operating room today. Prior to admission he resides alone in apartment with two steps to enter. He uses an elevator to get to his second floor apartment. Prior to admission he was independent with ambulation and
adls. He does not have any DME in the home. He has a prescription plan with [facility] and uses [facility]. He has several friends in the area that can come and check on him when he goes home. Medical work-up in progress. The discharge
plan is to return home with his supportive friends checking on him and a home visit by the Transitional Care Nurse when medically stable.
[2024-12-03 09:40] LABS: ACT+ - POC 416 Seconds (82-134)
[2024-12-03 09:49] LABS: ACT+ - POC 482 Seconds (82-134)
[2024-12-03 09:59] LABS: ACT+ - POC 464 Seconds (82-134)
[2024-12-03 10:20] LABS: ACT+ - POC 498 Seconds (82-134)
[2024-12-03 10:25] LABS: B.E. - POC 7.3 mmol/L; Glucose - POC 147 mg/dl (70-99); HCO3 - POC 32 mmol/L (21-28); Hematocrit - POC 29 % PCV (42-52); Hemodilution- POC Yes; Hemoglobin Calculated - POC 9.9; Ionized Calcium - POC 1.06 mmol/L (1.15-1.33); Lactate - POC 1.68 mmol/L (0.36-0.75); O2 Saturation %Calculated-POC 100.0 % (94-98); PCO2 - POC 43 mmHg (35-48); PO2 - POC 421 mmHg (83-108); POC Comment CPB; Potassium - POC 4.5 mmol/L (3.5-5.1); Sodium - POC 140 mmol/L (136-145); Specimen Type - POC Arterial; pH - POC 7.48 (7.35-7.45)
[2024-12-03 10:35] LABS: ACT+ - POC 515 Seconds (82-134)
[2024-12-03 10:57] LABS: B.E. - POC 4.9 mmol/L; Glucose - POC 149 mg/dl (70-99); HCO3 - POC 28 mmol/L (21-28); Hematocrit - POC 30 % PCV (42-52); Hemodilution- POC Yes; Hemoglobin Calculated - POC 10.2; Ionized Calcium - POC 1.07 mmol/L (1.15-1.33); Lactate - POC 0.42 mmol/L (0.36-0.75); O2 Saturation %Calculated-POC 100.0 % (94-98); PCO2 - POC 37 mmHg (35-48); PO2 - POC 432 mmHg (83-108); POC Comment CPB; Potassium - POC 5.5 mmol/L (3.5-5.1); Sodium - POC 140 mmol/L (136-145); Specimen Type - POC Arterial; pH - POC 7.50 (7.35-7.45)
[2024-12-03 11:06] LABS: ACT+ - POC 568 Seconds (82-134)
[2024-12-03 11:24] LABS: B.E. - POC 3.6 mmol/L; Glucose - POC 137 mg/dl (70-99); HCO3 - POC 27 mmol/L (21-28); Hematocrit - POC 32 % PCV (42-52); Hemodilution- POC Yes; Hemoglobin Calculated - POC 10.8; Ionized Calcium - POC 1.04 mmol/L (1.15-1.33); Lactate - POC 0.83 mmol/L (0.36-0.75); O2 Saturation %Calculated-POC 100.0 % (94-98); PCO2 - POC 33 mmHg (35-48); PO2 - POC 428 mmHg (83-108); POC Comment CPB; Potassium - POC 5.4 mmol/L (3.5-5.1); Sodium - POC 141 mmol/L (136-145); Specimen Type - POC Arterial; pH - POC 7.51 (7.35-7.45)
[2024-12-03 11:32] LABS: ACT+ - POC 545 Seconds (82-134)
[2024-12-03 11:50] LABS: ACT+ - POC 541 Seconds (82-134)
[2024-12-03 11:55] LABS: B.E. - POC 3.6 mmol/L; Glucose - POC 141 mg/dl (70-99); HCO3 - POC 28 mmol/L (21-28); Hematocrit - POC 32 % PCV (42-52); Hemodilution- POC Yes; Hemoglobin Calculated - POC 10.9; Ionized Calcium - POC 1.10 mmol/L (1.15-1.33); Lactate - POC 2.02 mmol/L (0.36-0.75); O2 Saturation %Calculated-POC 100.0 % (94-98); PCO2 - POC 40 mmHg (35-48); PO2 - POC 392 mmHg (83-108); POC Comment WARM; Potassium - POC 4.9 mmol/L (3.5-5.1); Sodium - POC 142 mmol/L (136-145); Specimen Type - POC Arterial; pH - POC 7.45 (7.35-7.45)
[2024-12-03 12:06] LABS: ACT+ - POC 579 Seconds (82-134)
[2024-12-03 12:18] LABS: ACT+ - POC 510 Seconds (82-134)
[2024-12-03 12:44] LABS: B.E. - POC 2.6 mmol/L; Glucose - POC 149 mg/dl (70-99); HCO3 - POC 28 mmol/L (21-28); Hematocrit - POC 32 % PCV (42-52); Hemodilution- POC Yes; Hemoglobin Calculated - POC 10.9; Ionized Calcium - POC 1.07 mmol/L (1.15-1.33); Lactate - POC 1.22 mmol/L (0.36-0.75); O2 Saturation %Calculated-POC 99.9 % (94-98); PCO2 - POC 45 mmHg (35-48); PO2 - POC 317 mmHg (83-108); POC Comment WARM; Potassium - POC 4.7 mmol/L (3.5-5.1); Sodium - POC 145 mmol/L (136-145); Specimen Type - POC Arterial; pH - POC 7.40 (7.35-7.45)
[2024-12-03 12:50] LABS: ACT+ - POC 123 Seconds (82-134)
[2024-12-03 12:55] LABS: B.E. - POC -1.1 mmol/L; Glucose - POC 124 mg/dl (70-99); HCO3 - POC 24 mmol/L (21-28); Hematocrit - POC 28 % PCV (42-52); Hemodilution- POC Yes; Hemoglobin Calculated - POC 9.7; Ionized Calcium - POC 1.27 mmol/L (1.15-1.33); Lactate - POC 1.47 mmol/L (0.36-0.75); O2 Saturation %Calculated-POC 99.9 % (94-98); PCO2 - POC 40 mmHg (35-48); PO2 - POC 353 mmHg (83-108); POC Comment POST; Potassium - POC 4.0 mmol/L (3.5-5.1); Sodium - POC 144 mmol/L (136-145); Specimen Type - POC Arterial; pH - POC 7.39 (7.35-7.45)
--- NOTE | 2024-12-03 13:24 | W.CVOR.SURPR ---
CVOR Surgeon Immed Pre Op
-
I have examined this patient prior to performance of the scheduled procedure.
The patient's condition is unchanged from the time of the dictated/written History and
Physical and the patient is able to undergo the scheduled procedure.
--- NOTE | 2024-12-03 13:24 | W.IMMPOSTOP ---
Addendum entered and electronically signed by Duc Orlando MD 12/03/24 19:09:
[id number]
Original Note:
Surgical Immed Post Op Note
-
CARDIAC SURGERY OPERATIVE NOTE:
Preoperative Dx:
MVCAD
NSTEMI
HTN Urgency
Obesity (BMI 32.9)
OA
Hx of hernia repair
Postoperative Dx:
Same
Procedures:
1) Median sternotomy
2) Takedown of ROBB (narrow pedicle)
3) Endoscopic harvest/prep of RLE GSV
4) CABG x 4 (ROBB to LAD, GSV to D1, GSV to OM, GSV to distal RCA)
5) ELAA (45mm Atriclip)
Surgeon:
Duc Orlando M.D.
Assistants:
Mor Betancourt-Dorothy; assistant case manager throughout
Randee Bustamante P.A.-C.; endoscopic harvest/prep of RLE GSV
Mor Doherty-CYayo; deep dermal & subcuticular sternotomy closure
Anesthesia:
Robles Albarado M.D. and Louie Sharif.R.N.A.
Perfusion:
Deann Lamb, C.C.P.; CPB: 154min, XC: 94min
Findings:
ROBB was a healthy conduit with very brisk blood flow; ELD 2.5mm
GSV was a healthy conduit w/ normal reilly and ELD 3.0-4.0mm
LAD was visible on the epicardial surface from its distal midpoint to apex w/ moderate scattered calcifications. Relatively normal reilly at distal midpoint anastomosis; ELD 2.5mm
D1 was visible on the epicardial surface, moderate scattered calcifications. ELD 2.5mm
OM was visible on the epicardial surface and then took a shallow intramyocardial course under approximately 1.5mm of myocardium. Anastomosis performed in intramyocardial segment. Normal reilly. ELD 3.5mm
RPDA was cleared, but was a diminutive vessel w/ ELD < 1.0mm
Distal RCA just past the crux was more reasonable target w/ moderate scattered calcifications, ELD 2.0mm
BLAIRE w/ windsock morphology; it was a moderate sized structure. 45mm AtriClip placed at base w/ < 1cm residual appendage prior to BLAIRE - LA junction. - confirmed w/ KAUSHIK postoperatively
HR in 40s preop, initially bradycardic in the 30s-40s post CPB; bipolar pacing wire placed, low-dose dobutamine started for rate. HR currently in 60s sinus.
Excellent flow in all grafts postoperatively
Post-KAUSHIK: normal biventricular function
Implants:
Bipolar epicardial V-wire x 1
CT x 4 (B/L pleural, inferior mediastinal, superior mediastinal)
Sternal wires x 7
Sternal 'X' plate w/ 4 - 16mm and 4 - 14mm screws
Sternal 'Square' plate w/ 4 - 12mm screws
Complications:
None
Transfusions:
None
Condition:
69 sinus (0.2/0.1); 143/67, CVP 15, 99%
GTTS: dobutamine 1, insulin 1, precedex 0.5
Stable/guarded to CVICU
CTs w/o significant drainage introperatively
[2024-12-03] MEDS: TYLENOL PO (13:36)
[2024-12-03 13:55] LABS: Glucose - Point of Care 136 mg/dl (70-99)
--- NOTE | 2024-12-03 14:00 | PTCARENOTE ---
Pt received from CVOR at 1356. Pt intubated and sedated on precedex gtt at 0.5mcg/kg/hr. Unresponsive, RAAS -5. PERRLA 2mm. Intubated with 8.0 ETT 24cm at the lip. SIMV 60% 14 500 5. POX 95%. B/l anterior lung sounds clear. Scant amount of clear
secretions from oral cavity. Right and left pleural chest tubes y-sited to 1 atrium to -20cm suction draining red fluid. Mediastinal chest tubes x2 y-sited to 1 atrium to -20cm suction draining red fluid. No air leaks, tidaling, crepitus noted. NSR
on tele with rates in the 60s. SBP goal 90-130. +Rub. Epicardial v-wire thresholds completed, set to back up 40/8/2. No pacing after thresholds completed. Bilateral radial and DP pulses palpable. No edema noted. Abdomen soft, round, obese.
Hypoactive BS. Spear catheter intact draining adequate amounts of clear yellow urine. Sternal incision covered with Antibacterial dressing, scant amount of drainage. Chest tube dressing CDI. Right groin puncture site approximated with skin glue,
RESOURCE MANAGEMENT SPECIALIST. Right SVG harvest site approximated with skin glue, SHANTAL CDI. Right IJ cordis with slick. Right hand 20g PIV and Left 20g PIV intact. Left radial nicole with appropriate waveform, flushed, leveled, and zeroed. See MAR for medication
administration. See worklist for complete nursing assessment. Post op EKG, labs, and CXR completed.
[2024-12-03 14:07] LABS: B.E. -2.3 mmol/L; HCO3 23.7 mmol/L (21-28); O2 Saturation % 100.0 % (94-98); PCO2 45 mmHg (35-48); PO2 122 mmHg (83-108); Potassium 4.4 mMOL/L (3.5-5.1); Sodium 138 mMOL/L (136-145)
[2024-12-03 14:14] LABS: Hematocrit 30.7 % (39.0-52.0); Hemoglobin 9.7 g/dL (13.0-18.0); Platelet Count 140 10^3/uL (130-400)
[2024-12-03 14:19] LABS: INR 1.47; PT 18.1 Sec (11.4-14.6)
[2024-12-03 14:20] LABS: APTT 34.2 Sec (23.4-35.0)
[2024-12-03] MEDS: NSS 500 IV (14:20)
[2024-12-03] MEDS: ANCEF 10 IV ×2 (14:20)
[2024-12-03 14:21] LABS: Blood Urea Nitrogen 11 mg/dl (9-20); Estimated Creatinine Clearance 81 ml/min; Glucose 136 mg/dl (70-99); Magnesium 3.3 mg/dl (1.6-2.3)
[2024-12-03] MEDS: CALCIUM GLUCONATE 100 IV (14:21)
--- NOTE | 2024-12-03 14:29 | W.PN.CARDCBS ---
Addendum entered and electronically signed by Catarino Rivera MD 12/03/24 14:56:
I saw and examined the patient.
The PHYS THERAPIST or PA's note was reviewed and I agree with the note.
Comment: General: Sedate
Neck: Supple, no JVD, HJR, carotids +2 B/L, no bruits bilaterally.
Heart: Non displaced PMI, RRR, no murmurs, No S3, S4, no rubs.
Lungs: Scattered rhonchi
Sternal dressings noted
Extremities: No clubbing, cyanosis or edema bilaterally.
Neuro: Sedate
Stable cardiology status post CABG x 4 earlier today. Remains in sinus rhythm. He is on low-dose Levophed.
Original Note:
Today's Communication / Plan
-
Continue post op care
Impression / Plan
-
PCP: Fariba Verduzco
[employer] Maintenance Worker: None prior to admission
Impression:
Presented 11/29/2024 with acute left sided chest pain, left arm pain and worsening dyspnea on exertion
NSTEMI
Multivessel CAD
s/p CABG x 4 (ROBB to LAD, GSV to D1, GSV to OM, GSV to distal RCA), BLAIRE clip 12/03/2024
Hypertensive urgency
Hyperlipidemia
Obesity
Osteoarthritis
Hernia with repair
Echo 11/30/2024: EF 68%. Normal wall motion. No significant valve disease
Cardiac catheterization 11/30/2024: LAD: prox 60%, tandem 90% prox and mid stenosis. Diagonal 1: 80% ostial stenosis. LCX: 50% prox and LI in large OM. RCA: RECONCILIATION COORDINATOR with right to right and left to left collaterals. LVG EF 65%
Plan:
-Presented with chest pain, L arm pain, and worsening JEREZ. Admitted with NSTEMI. Trop peaked at 10.1.
-Found to have MV CAD by cath 11/30/2024. s/p CABG x 4 (ROBB to LAD, GSV to D1, GSV to OM, GSV to distal RCA), BLAIRE clip 12/03/2024
-Seen post-op. Doing well.
-On Levo @1, insulin, precedex
-Post-op EKG reviewed, SR, overall stable compared to prior.
-Hgb stable post op at 9.7. No products given intra-op. Continue to follow
-Continue aspirin, plavix
-Continue high intensity statin
-Continue post-op care.
HPI 11/30/2024: Patient is a 74 year old male with past medical history significant for hyperlipidemia obesity and osteoarthritis who presents to emergency department 11/29/2024 with acute onset of left-sided chest discomfort, left arm pain and
restlessness. Patient reports he has been dealing with intermittent low back pain which he thinks was a result of injury secondary to overdoing it with stretching and claribel chi. He was prescribed prednisone yesterday by PCP and took 1 dose last
evening. He then went to bed and was very restless. In the middle of the night he woke with acute onset left-sided chest pain radiating down his arm and some mild shortness of breath. When symptoms persisted he called 911. Patient was provided
aspirin en route via EMS. He was found to be hypertensive on arrival with blood pressure of 210/102. Patient was provided sublingual nitroglycerin and started on IV heparin. Chest x-ray showed no acute cardiopulmonary abnormality. EKG
demonstrated sinus rhythm with nonspecific ST abnormality. Initial troponin was negative however repeat troponin was 3.55. Patient also started on Nitropaste for ongoing hypertension. Overnight he was then started on IV nitroglycerin given blood
pressure remained elevated.
At time of this evaluation patient currently on IV heparin, IV nitroglycerin and is chest pain-free. Third set of troponin is pending
Progress Note - [employer] Maintenance Worker
Subjective
Date of Service: December 03, 2024
Intubated, sedated.
Objective
Labs:
12/03/24 13:56
Labs
Hgb 9.7 g/dL (13.0-18.0) L D 12/03/24 13:56
Hct 30.7 % (39.0-52.0) L 12/03/24 13:56
Plt Count 140 10^3/uL (130-400) D 12/03/24 13:56
PT 18.1 Sec (11.4-14.6) H 12/03/24 13:56
INR 1.47 12/03/24 13:56
APTT 34.2 Sec (23.4-35.0) 12/03/24 13:56
Sodium 141 mmol/L (135-145) 12/03/24 04:34
Potassium 4.2 mmol/L (3.5-5.1) 12/03/24 04:34
BUN 11 mg/dl (9-20) 12/03/24 13:56
Creatinine 0.9 mg/dL (0.7-1.3) 12/03/24 13:56
Glucose 136 mg/dl (70-99) H 12/03/24 13:56
Troponins
11/30/24
18:20
Troponin I 6.060 H*
Vital Signs and I&O:
Vital Signs
Temp Pulse Resp BP Pulse Ox
96.9 F L 61 14 162/51 96
12/03/24 14:00 12/03/24 14:00 12/03/24 14:00 12/03/24 06:26 12/03/24 14:05
Vital Signs
Temp Pulse Resp BP Pulse Ox
96.9 F L 61 14 162/51 96
12/03/24 14:00 12/03/24 14:00 12/03/24 14:00 12/03/24 06:26 12/03/24 14:05
Intake & Output
12/01/24 12/02/24 12/03/24 12/04/24
06:59 06:59 06:59 06:59
Intake Total 439 / 439 250 / 250 672 / 672 135.3 / 135.3
Output Total 1200 / 1200 700 / 700 880 / 880 55 / 55
Balance -761 / -761 -450 / -450 -208 / -208 80.3 / 80.3
Physical Exam
Physical Exam
GEN: No distress, intubated
HEENT: mmm
LUNGS: CTA b/l, no wheezes/rales
CV: Reg, S1/S2, +rub
EXT: No edema, clubbing or cyanosis
SKIN: No rash, warm, dry
--- NOTE | 2024-12-03 14:30 | PTCARENOTE ---
CT MOTHER TESTER notified of ABG results. Orders to increase RR to 16 and decrease fio2 to 40%. RT notified and at bedside to change vent settings. POX 94%, pt tolerating.
[2024-12-03] MEDS: PACERONE PO (15:00)
[2024-12-03 15:06] LABS: Glucose - Point of Care 160 mg/dl (70-99)
--- NOTE | 2024-12-03 15:47 | CON.INTV ---
Addendum entered and electronically signed by Yamel Panchal MD 12/04/24 15:09:
12/04.
Patient transferred to telemetry service. Exterminator Helper service will sign off, please call as needed.
Original Note:
Consultation
Consultation Request
Date/Time Consultation Requested: 12/03/2024
Date/Time Consultation Performed: 12/03/2024
Medical History
-
History of Present Illness:
Patient is a 74-year-old male who was admitted to the hospitalist service on 11/30 after he presented to emergency room for chest discomfort. Patient had called EMS and was brought to the emergency room for urgent evaluation. Patient received
sublingual nitro in the emergency room and presentation was suggestive of acute coronary syndrome. Patient was started on aspirin, statins and IV heparin. He was subsequently evaluated by cardiology service and a cardiac catheterization which was
suggestive of coronary artery disease. Subsequently cardiothoracic surgery was consulted and patient today was taken to the OR for coronary artery bypass graft. Postprocedure, he was admitted to cardiovascular ICU and clothes marker service was
consulted for further input.
Past Medical History
Past Medical History: Reports Other
Additional Past Medical History:
Obesity
Dyslipidemia
Past Surgical History: Reports Other
Additional Past Surgical History:
T&A
Hernia Repair
Social History
Tobacco: Non-smoker
Alcohol: None
Drug: None
Family History
Family History: Not pertinent
Allergies / Home Medications
Allergies / Home Medications
Allergies
Allergy/AdvReac Type Severity Reaction Status Date / Time
No Known Allergies Allergy Verified 11/29/24 22:36
Home Medications
�Medication �Instructions �Recorded �Confirmed �Last Taken �Type
atorvastatin 20 mg tablet 20 mg PO HS High Cholesterol 10/04/22 11/30/24 11/29/24 20:00 History
1
ibuprofen 400 mg tablet 400 mg PO HS Pain 10/04/22 11/29/24 11/28/24 21:00 History
1
omega [id number]-rqm-[id number]-fish oil 1,000 mg 2 cap PO HS High Cholesterol 10/04/22 11/30/24 11/29/24 20:00 History
(120 mg-180 mg) capsule (Fish Oil) 1
Review of Systems
-
Unable to Obtain full review of systems at this time due to: Patient Intubation
Vitals / Labs / Diagnostic Testing
Vital Signs
Temp Pulse Resp BP Pulse Ox
96.8 F L 56 16 102/59 93
12/03/24 15:00 12/03/24 15:10 12/03/24 15:10 12/03/24 15:09 12/03/24 15:09
Lab Data
12/03/24 13:56
Laboratory Results
12/02/24 12/03/24 12/03/24
17:20 00:39 04:34
PT
INR
APTT 95.9 H 83.2 H 97.2 H
pH
pCO2
pO2
HCO3
O2 Delivery Level
12/03/24
13:56
PT 18.1 H
INR 1.47
APTT 34.2
pH 7.33 L
pCO2 45
pO2 122 H
HCO3 23.7
O2 Delivery Level
Diagnostic Testing:
Physical Exam
-
HEENT: Normocephalic
Cardiovascular: S1/S2
Respiratory: Clear
GI: Soft and Non Distended
Neurology: Other (Drowsy, responds to stimulation)
Skin: Warm
General: Comfortable
Assessment
-
74-year-old gentleman admitted with Chest pain, noted to have NSTEMI, now s/p coronary artery bypass graft x 4 and left atrial appendage exclusion, POD # 0
Titrated off pressors per protocol, MAP of 69.
ECHO reviewed with normal function
Management of chest tubes per primary service
Intubated/off sedation now, tolerating SAT well
Pain control
RASS goal of 0 to -1
Intubated for procedure, SBT trial when patient able to spontaneously breath
Current vent settings: SIMV 500/16/40%/5. With pressure support of 5.
AB.33/45/122
CXR with no obvious opacities/infiltrates, low lung volumes, ETT in good position, lines/tubes in place
Extubate per protocol
Maintain supplement oxygen as needed
No prior history of pulmonary disease
Can add nebulizers if needed
Aspiration precautions
Encouraged incentive spirometry, OOB/ambulation/early mobility
Advance diet as tolerated following extubation
GI prophylaxis: Protonix
Monitor critical I/O's
Spear/chest tube output
Hb/platelets postoperatively, mild drift
Trend CBC for now
Can transfuse if indicated for Hb <7, plt <50 in surgical patients
DVT prophylaxis including SCDs
Insulin protocol initiated and ongoing
Transition to SQ/off as indicated per team
Other medical diagnoses:
- Mild chronic biapical pleuroparenchymal scarring. Pursue pulmonary function testing as outpatient including lung volumes and diffusion capacity. Outpatient pulmonary follow-up. Information added to discharge section.
- Hypertension
- Hyperlipidemia
- Chronic low back pain
- Obesity, BMI 32.9
Critical Care time 65 mins -- The patient is admitted for acute critical illness for the treatment of vital organ failure and/or prevention of further life-threatening conditions. Total care includes time spent in review of history, physical exam,
medications, hemodynamic/ventilator parameters, laboratory data, imaging and discussion with house staff, pharmacy, respiratory therapy, chemical preparer, and nursing
Data:
CXR 11/2024: Status post cardiothoracic surgery. Support apparatus as described above
Partial atelectasis versus pneumonia in the right lower lobe. Evidence for minimal partial atelectasis in the midportion of each lung
[facility] 11/2024: 1. Proximal to mid LAD atherosclerotic disease and chronic total occlusion of the proximal RCA. Moderate coronary disease in the mid circumflex and high-grade stenosis at the origin of small to medium caliber diagonal branch
2. Preserved LV systolic function
ECHO 11/2024: 1. Normal left ventricular size, wall thickness and systolic function. No regional wall motion abnormalities are seen.
2. Aortic valve sclerosis of multiple aortic cusps; but no aortic stenosis. No evidence of aortic regurgitation.
3. Trace mitral valve regurgitation.
4. Trace tricuspid regurgitation.
5. No prior studies for comparison.
CT Chest 11/2024: Minor chronic biapical pleural-parenchymal scarring. No focal consolidation, pleural effusion, or pneumothorax. No pulmonary mass or nodule. The trachea and central airways are patent. Severe coronary artery calcification.
[2024-12-03 16:09] LABS: Glucose - Point of Care 136 mg/dl (70-99)
--- NOTE | 2024-12-03 16:28 | PTCARENOTE ---
Pt waking up. Intermittently follows commands, after encouragement, follows commands consistently. Breathing over the vent, RT notified and pt placed on cpap trial. POX 97%, pt tolerating.
[2024-12-03 17:05] LABS: Glucose - Point of Care 125 mg/dl (70-99)
[2024-12-03 17:08] LABS: B.E. - POC -0.5 mmol/L; Blood Urea Nitrogen - POC 11 mg/dl (3-120); Chloride - POC 111 mmol/L (96-111); Creatinine - POC 1.01 mg/dl (0.3-1.0); Glucose - POC 128 mg/dl (70-99); HCO3 - POC 25 mmol/L (21-28); Hematocrit - POC 31 % PCV (42-52); Hemodilution- POC No; Hemoglobin Calculated - POC 10.4; Ionized Calcium - POC 1.26 mmol/L (1.15-1.33); Lactate - POC 1.85 mmol/L (0.36-0.75); O2 Saturation %Calculated-POC 98.4 % (94-98); PCO2 - POC 43 mmHg (35-48); PO2 - POC 117 mmHg (83-108); Potassium - POC 4.4 mmol/L (3.5-5.1); Sodium - POC 144 mmol/L (136-145); Specimen Type - POC Arterial; pH - POC 7.37 (7.35-7.45)
--- NOTE | 2024-12-03 17:10 | W.PN.UPDATE ---
Update Note
Progress Note Update
74-year-old male was admitted on 11/30/2024 with chest discomfort and dyspnea which has progressed over the past year. He ruled in for NSTEMI elevated troponin. Cath reported triple-vessel coronary disease.
IV fluids: 1200
U.O.:� 700
Blood:� none
Wires:�
Drips: Dobutamine in OR for SB (40s)>off on arrival to CVICU (SR 70s), Precedex, Insulin
�
NEURO: sedated, pupils +2mm B/L
RESP: #8OT @22cm> 500/60%/14/5. Lungs clear B/L. 2 mediastinal (0cc on arrival) and R/L pleural (10cc on arrival) chest tubes to -20cm suction. Sanguineous drainage
CV: RRR +S1, S2, no S3, no�rub, no murmur. Aquacell to median sternotomy. RIJ w/Slik
ABD: round, soft, no BS
EXT: no edema, +2/4 DP pulses B/L, no femoral bruit, RLE SHANTAL wrap intact; left radial A-line intact
: Spear with clear yellow urine
�
A/P: POD #0 s/p CABG x 4 (ROBB to LAD, GSV to D1, GSV to OM, GSV to distal RCA), ELAA (45mm Atriclip)
Post-KAUSHIK: normal biventricular function
- wean and extubate
# CAD
- will require ASA, Plavix, statin, beta edgar and Amio for AF prophylaxis
�
# acute surgical blood loss anemia-expected
- initial Hb 9.7>trend CBC
- iron supplement
�
# Class I Obesity
- counseling psychologist on caloric restriction
�
# Hyperlipidemia
- resume home�Lipitor 20mg daily
--- NOTE | 2024-12-03 17:28 | PTCARENOTE ---
EPOC CPAP ABG completed by CT BIZTALK ADMINISTRATOR. Orders to extubate. Pt bathed with CHG wipes and turned from side to side without significant dumps from chest tubes. RT notified and at bedside, extubated to 6L NC, POX 98%. Pt tolerated. Able to say his name and
birthday, unable to comprehend IS at this time. Resting in bed.
[2024-12-03 18:07] LABS: Glucose - Point of Care 101 mg/dl (70-99)
[2024-12-03] MEDS: LIPITOR PO (18:09)
[2024-12-03 18:18] LABS: Hematocrit 32.5 % (39.0-52.0); Hemoglobin 10.4 g/dL (13.0-18.0); Platelet Count 204 10^3/uL (130-400)
--- NOTE | 2024-12-03 18:40 | PTCARENOTE ---
Went in to check on patient since SCD pump was beeping. Pt with expressive aphasia. Unable to say his name and date of . Kept saying 'omega' and 'dragan'. Rapid response and stroke alert called. NIH completed: 5 Equal strength in all
extremities. No facial droop or tongue deviation. PERRLA 3mm. Mild slurring of words. Pt taken to CT scan. During CT scan, patient with resolved aphasia and slurring. Able to state name, , that we are at the hospital and the month of november,
2024. Pt transported back to CVICU where he kept saying he was thirsty. Upon arrival to CVICU, patient continued to have aphasia and slurring. Bedside report given to oncoming RN.
[2024-12-03 18:42] LABS: Glucose - Point of Care 136 mg/dl (70-99)
--- NOTE | 2024-12-03 18:47 | W.PN.UPDATE ---
Update Note
Progress Note Update
Extubated proximately 1715. Called by nurse at approximately 644 word finding difficulty. Vital signs stable and blood sugar 136. Patient unable to state birthdate repetitively saying 'Melodie,' Repetitively sting 'I'm scared' and unable to
further elaborate. No other focal deficits. Rapid response called and patient transported to CT scan.
[2024-12-03 19:32] LABS: Glucose - Point of Care 131 mg/dl (70-99)
[2024-12-03] MEDS: ASPIRIN 300 MG RECTAL (20:25)
[2024-12-03] MEDS: SENOKOT-S PO (20:29)
--- NOTE | 2024-12-03 21:00 | PTCARENOTE ---
Addendum entered by Helen Dailey RN 12/03/24 23:30:
Pt to CVICU from CT scan ~192.
Original Note:
Assumed care of pt from dayshift RN. Pt s/p stroke alert and CT scan. Dr. Orlando and CTPA / CTNP at the bedside. Pt following simple commands but having expressive aphasia w/ minor receptive aphasia. Pt states his thoughts feel 'scrambled.' See
worklist for full NIH stroke scale. SR on the tele monitor. HR 70s. +RUB. Temporary epicardial v-wire intact and set to backup 40/8/2. BP stable. Levo off. Palpable pulses throughout. CVP ~10. Aspirin administered rectally - see JUN. Pt on 6 L NC.
POX 100%. Lung sounds audible anteriorly. Mediastinal CTx2 and R/L pleural CT to -20 suction, no airleaks noted at this time, and output appropriate. Abdomen nontender. Hypoactive BS. Spear catheter intact and draining yellow urine. All surgical
sites stable. Right IJ cordis w/ SLIC intact. CVP and left radial a-line leveled, zeroed, and flushed. Glycemic protocol followed. See worklist for full nursing assessment and interventions.
[2024-12-03 21:43] LABS: Glucose - Point of Care 125 mg/dl (70-99)
[2024-12-03] MEDS: ANCEF 5 IV (22:17)
[2024-12-03 23:35] LABS: Glucose - Point of Care 117 mg/dl (70-99)
[2024-12-04] VITALS (22 sets, daily range): BP systolic 114–185; BP diastolic 50–73; BMI 33.6
--- NOTE | 2024-12-04 00:32 | PTCARENOTE ---
Pt reassessed. NIH stroke scale completed - see worlist. Expressive aphasia improving - now intermittent and mild. Pt aware that his thoughts are a little scrambled and communicates frustration over it. Pt following simple commands appropriately. SR
on the tele monitor. HR 70s. A-line pressure slightly higher than cuff pressure. PA aware and advised to go by cuff pressure. CVP ~ 7-12. Pt on 2 L NC. POX 97%. CTx4 assessment unchanged. Spear catheter intact and draining yellow urine. All surgical
sites stable. Drainage on sternal Aquacel monitored. CVP and a-line leveled, zeroed, and flushed. Glycemic protocol followed. Pt repositioned for comfort. Call bermudez within reach and pt ringing appropriately.
[2024-12-04 01:41] LABS: Glucose - Point of Care 112 mg/dl (70-99)
--- NOTE | 2024-12-04 03:51 | W.PN.CT ---
Addendum entered and electronically signed by Duc Orlando MD 12/04/24 09:34:
DAHL 2268: POD#1 s/p CABG x 4, ELAA
Early postoperative expressive aphasia.� CT-H negative.� CTA w/ small L MCA filling defect.� Significant improvement, but still struggling to find/express some words.� AVSS.�� RA.� GTTS: insulin.� CT: M: 35/75, P: 290.� UO: 850/1120.� Neuro: LUCERO x
5, as above
-�������� Neurology
-��������� Speech eval
-��������� Restart ASA/Plavix
-��������� Diuresis
-��������� De-line
-��������� OOB/IS/ambulate
Original Note:
Today's Communication / Plan
-
Plan:
-No major issues overnight. Hemodynamically and neurologically intact without focal deficits
-Had acute postop transient expressive aphasia likely d/t TIA vs effects of Anesthesia, CT scan negative
-Fully conversant and oriented x 3 this AM without focal deficits
-Cont. ASA/Plavix
-Avoid narcotics/sedatives
-Off all drips but insulin per protocol, will transition off today. Tele phase when off insulin gtt
-Cont. current meds (ASA, Plavix, Amiodarone, Lopressor, Lipitor)
-Monitor chest tube output: 2meds 35/35, R/L pleurals 50/50
-No swan
-D/C'd Media and SLIC @ 0515
-D/C'd russell catheter @ 0600
-Maintain temporary wires (will cut before d/c home)
-Encourage use of IS
-Wean off of O2 as tolerated
-OOB into chair/Ambulate
Assessment / Plan
-
Assessment:
-S/P Median sternotomy/ CABG x 4 (ROBB to LAD, GSV to D1, GSV to OM, GSV to distal RCA)/Endoscopic harvest/prep of RLE GSV/ELAA (45mm Atriclip), by Dr. Orlando, 12/03/24, pod#1
-MVCAD
-NSTEMI (peak trop 10.1)
-LVEF 68% per TTE 11/30/24
-HTN Urgency
-Class 1 Obesity (BMI 32.9)
-Prediabetes (A1C 5.7)
-Former tobacco use
-OA
-S/P hernia repair x 3
-S/P T&A
-Acute postop blood loss/Anemia (stable without transfusion)
-Acute postop atelectasis
-Acute postop hypovolemia with subsequent hypervolemia
-Acute postop transient expressive aphasia likely d/t TIA vs effects of Anesthesia, CT scan negative
Discussed patient care with: Cardiology, Nursing, Respiratory Therapy, Pharmacy and Care Team
Subjective
Procedure
-S/P Median sternotomy/ CABG x 4 (ROBB to LAD, GSV to D1, GSV to OM, GSV to distal RCA)/Endoscopic harvest/prep of RLE GSV/ELAA (45mm Atriclip), by Dr. Orlando, 12/03/24,
-
Date of Service: December 04, 2024
Pt c/o mild incisional pain, otherwise feels well
Objective Data
-
PT 18.1 Sec (11.4-14.6) H 12/03/24 13:56
INR 1.47 12/03/24 13:56
APTT 34.2 Sec (23.4-35.0) 12/03/24 13:56
Vital Signs
Vital Signs
Temp Pulse Resp BP Pulse Ox
99.6 F 69 22 121/60 98
12/04/24 03:00 12/04/24 03:00 12/04/24 03:00 12/04/24 03:00 12/04/24 03:00
CT Intake/Output/Weight
12/03/24 12/03/24 12/04/24
06:59 18:59 06:59
Intake Total 233.3 / 438.0 204.7 / 438.0
Output Total 880 / 880 395 / 1290 895 / 1290
Balance -880 / -208 -161.7 / -852.0 -690.3 / -852.0
SaO2: 98 (2L)
Physical Exam
-
General: Awake, Oriented and AOx3
Cardiovascular: Regular rate & rhythm, No Murmurs, No Rub and No Gallop
Respiratory: Decreased Breath Sounds (at bases, otherwise clear)
Sternum: Stable
Incision: Clean, Dry, Intact and Dressing Intact
Extremities: Other (+trace edema)
Data Reviewed
-
Lab Results: Results Reviewed
Medications: Active Meds Reviewed
Chest X-Ray: Report Reviewed and Image Reviewed
ECG: Report Reviewed and Image Reviewed
[2024-12-04 04:00] LABS: Glucose - Point of Care 102 mg/dl (70-99)
[2024-12-04 04:15] LABS: Hematocrit 30.2 % (39.0-52.0); Hemoglobin 9.8 g/dL (13.0-18.0); Mean Corp Hgb Conc. 32.5 g/dL (33.0-37.0); Mean Corpuscular Volume 83.7 fL (80.0-94.0); Platelet Count 196 10^3/uL (130-400); Red Cell Dist. Width 14.3 % (11.5-14.5)
--- NOTE | 2024-12-04 04:35 | PTCARENOTE ---
Pt reassessed. NIH stroke scale scored 1. Intermittent mild expressive aphasia and word searching. Pt oriented to person/place/time. Oriented and appropriate conversation. Follows commands. SR on the tele monitor. HR 70s. V-wire intact. A-line BP
greater than cuff BP. Per PA - go by cuff BP. CVP ~7-10. Pt on RA. POX 94-97%. CTx4 assessment unchanged. Output appropriate. Spear catheter intact and draining yellow urine. All surgical sites stable. CVP and a-line leveled/zeroed/flushed. Labs
drawn and sent. EKG obtained. Glycemic protocol followed. PA at the bedside to assess neuro status. Call bermudez within reach.
[2024-12-04 04:58] LABS: Blood Urea Nitrogen 14 mg/dl (9-20); Calcium 8.2 mg/dl (8.4-10.2); Carbon Dioxide 23 mmol/L (22-30); Chloride 112 mmol/L (98-107); Estimated Creatinine Clearance 73 ml/min; Glucose 99 mg/dl (70-99); Magnesium 2.7 mg/dl (1.6-2.3); Potassium 4.7 mmol/L (3.5-5.1); Sodium 138 mmol/L (135-145); eGFR > 60.00
[2024-12-04] MEDS: ANCEF 5 IV ×2 (05:23→13:47)
[2024-12-04] MEDS: TYLENOL 1000 MG PO ×3 (05:23→21:14)
[2024-12-04 06:08] LABS: Glucose - Point of Care 114 mg/dl (70-99)
--- NOTE | 2024-12-04 07:40 | W.PN.ANS.POP ---
Anesthesia Post Operative
- Anesthesia Post Op Note
Vital Signs Stable-See Nursing Note: Yes
Airway Patent: Yes
Adequate Pain Control: Yes
Change in Mental Status: No
Current Postoperative Nausea & Vomiting: No
Anesthesia Complications: No
General Anesthetic Recall: No
Unplanned Admission: No
Post Op Hydration Adequate: Yes
--- NOTE | 2024-12-04 08:00 | PTCARENOTE ---
resumed care of pt from prev RN. Assisted night RN to get pt oob. following simple commands but having expressive aphasia and feeling slightly light headed and dizzy when standing. slow to respond at times. NIHSS done in tandem-1. VSS. NSR HR 70s.
+rub. v-wire set to backup 40//2. + pulses. pulse ox 95%. RA. diminished breath sounds. CTx4 to -20 suction, no airleaks/crepitus noted. +bs. poor appetite. DTV. All surgical sites stable. Right IJ cordis and PIVx 2 patent. Glycemic protocol. will
continue to monitor.
[2024-12-04 08:07] LABS: Glucose - Point of Care 118 mg/dl (70-99)
[2024-12-04] MEDS: BACTROBAN 2% OINTMENT 1 APPLIC NASAL ×2 (08:25→19:54)
[2024-12-04] MEDS: NSS IV (08:27)
[2024-12-04] MEDS: PLAVIX 75 MG PO (08:31)
[2024-12-04] MEDS: SENOKOT-S 1 TABLET PO ×2 (08:31→19:54)
[2024-12-04] MEDS: PROTONIX 40 MG PO (08:31)
[2024-12-04] MEDS: LOW STRENGTH ASPIRIN 81 MG PO (08:32)
[2024-12-04] MEDS: LIDOCAINE 4% PATCH 1 PATCH TOPICAL (08:32)
[2024-12-04] MEDS: LOPRESSOR 12.5 MG PO ×2 (08:33→19:54)
[2024-12-04] MEDS: PACERONE 200 MG PO ×3 (08:34→21:14)
[2024-12-04 09:56] LABS: Glucose - Point of Care 128 mg/dl (70-99)
[2024-12-04] MEDS: LASIX 40 MG IV (11:02)
--- NOTE | 2024-12-04 11:18 | PTCARENOTE ---
oob to chair. when attempting to get back in patient becoming less responsive. got into bed. staring up at ceiling eyes deviating to right.. pointing and not responding. Staff assist button pushed. BP elevated. Dr Orlando at bedside along with MACHINE MADE SHOE UNIT WORKER
Emmy. neuro notified and come to bedside to evaluate. at this time patient responsive again. no additional changes noted. NIHSS now a 0. will continue to monitor.
[2024-12-04 12:07] LABS: Glucose - Point of Care 110 mg/dl (70-99)
--- NOTE | 2024-12-04 12:12 | PTOTSP ---
Speech therapy
Presentation: Patient was fully oriented and followed commands well during session. During conversation with COMMUNICATIONS TECHNICIAN, patient's speech and language appeared to be WNL. In addition, patient's recall appeared to be WNL. Patient states his speech is back
to baseline (expressive aphasia difficulty in AM).
Per discussion with RN, patient's speech appeared to consist of expressive aphasia this AM but has returned to baseline within the last ~2 hours.
Swallowing Function: Patient was observed with several bites of cracker and sips of thin (straw) in which patient appeared to tolerate as he did not exhibit any overt clinical s/sx of aspiration or difficulty with mastication. Patient denied any
dysphagia complaints.
Per RN, patient tolerated meal tray in AM and medications whole with thin liquids.
Recommendations:
1) Continuation of reg/ thin
2) Aspiration precautions
3) Medications as tolerated
Plan: COMMUNICATIONS TECHNICIAN will continue to follow x1 to ensure tolerance; pending hospitalization.
[2024-12-04 13:51] LABS: Glucose - Point of Care 116 mg/dl (70-99)
--- NOTE | 2024-12-04 15:04 | CON.NEURO ---
Neuro Assessment/Plan
Assessment
CTA head/neck imgs and report rev'd, showing L MCA non occlusive thrombus in M1 segment. age indeterminate left P2 occlusion. L carotid bulb 60-65% stenosis.
CT Perfusion scan imgs rev'd with L hemispheric no core infarct, penumbra 38 cc
74 year old man with rachele/intraoperative stroke/TIA during 4 vessel CABG. currently minimally symptomatic, was not a candidate for TNK last night given major surgery; presently no role for mechanical thrombectomy on the non-occlusive thrombus
suspecting embolic etiology and not symptomatic carotid given the presence of LEFT facial droop
check brain MRI
secondary prevention continue ASA/Plavix/Lipitor 80
Consultation
Order
Date of Consultation: 12/04/24
Requesting Provider: Emmy Powell
Reason for Consult: stroke
Subjective/Objective
Subjective Data
Date of Service: December 04, 2024
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 He extubated yesterday ~5:15 PM, and was lethargic, initially believed to be effect of anesthetics, however ~6:44 pm was
noted to be aphasic without any other focal deficit. Emergent CTA/perfusion showing L MCA non occlusive thrombus in M1 segment. Perfusion scan with L hemispheric penumbra 38 cc
Patient's aphasia improved, and when seen this AM he was fully conversant though he reports language not 100% back to his normal self. nurse reporting that he has intermittent episodes of aphasia lasting minutes.
Objective Data
Vital Signs
Temp Pulse Resp BP Pulse Ox
37.2 C 71 20 136/67 97
12/04/24 12:00 12/04/24 14:45 12/04/24 12:00 12/04/24 12:00 12/04/24 12:00
Lab Results
12/04/24 03:55
12/04/24 03:55
PT 18.1 Sec (11.4-14.6) H 12/03/24 13:56
INR 1.47 12/03/24 13:56
APTT 34.2 Sec (23.4-35.0) 12/03/24 13:56
Sodium 138 mmol/L (135-145) 12/04/24 03:55
Potassium 4.7 mmol/L (3.5-5.1) 12/04/24 03:55
BUN 14 mg/dl (9-20) 12/04/24 03:55
Glucose 99 mg/dl (70-99) 12/04/24 03:55
Calcium 8.2 mg/dl (8.4-10.2) L 12/04/24 03:55
LDL Cholesterol, Calc 89 mg/dl 11/30/24 03:26
Patient Allergies
No Known Allergies Allergy (Verified 11/29/24 22:36)
Physical Exam
-
NIHSS 0
AAOx3, speech clear, language intact, able to identify all printed materials for NIHSS
VFF, EOMI, LEFT nasolabial flattening
subtle RIGHT sided weakness
Medications
-
Active Medications
Generic Name Dose Route Start Last Admin
Trade Name Freq PRN Reason Stop Dose Admin
Acetaminophen 1,000 mg 12/03/24 14:00 12/04/24 13:47
Acetaminophen 500 Mg Tablet PO 12/31/24 13:59 1,000 mg
TID@0600,1400,2200 SONJA Administration
Acetaminophen 650 mg 12/03/24 12:56
Acetaminophen 325 Mg Tablet PO 12/31/24 12:55
Q4HPRN PRN
mild pain,headache,temp >101F
Albuterol 2 puff 12/03/24 12:56
Albuterol Hfa [90 Mcg/Dose] Inhaler INH
R Q4HPRN PRN
wheezing/shortness of breath
Protocol
Amiodarone HCl 200 mg 12/03/24 16:00 12/04/24 08:34
Amiodarone 200 Mg Tablet PO 12/31/24 15:59 200 mg
TID SONJA Administration
Aspirin 81 mg 12/04/24 08:00 12/04/24 08:32
Aspirin 81 Mg Chewable Tablet PO 01/01/25 07:59 81 mg
DAILY SONJA Administration
Atorvastatin Calcium 80 mg 11/30/24 18:00 12/03/24 18:09
Atorvastatin (Lipitor) 80 Mg Tablet PO 12/28/24 17:59 Not Given
QPM SONJA
Bisacodyl 10 mg 12/03/24 12:56
Bisacodyl 10 Mg Rectal Suppository RECTAL 12/31/24 12:55
DAILYPRN PRN
constipation
Clopidogrel Bisulfate 75 mg 12/04/24 08:00 12/04/24 08:31
Clopidogrel 75 Mg Tablet PO 01/01/25 07:59 75 mg
DAILY SONJA Administration
Sodium Chloride 500 mls @ 10 mls/hr 12/03/24 12:56 12/04/24 08:27
Nss IV 12/31/24 07:59 Not Given
CORDIS SONJA
Lidocaine 1 patch 12/04/24 08:00 12/04/24 08:32
Lidocaine 4% Topical Patch TOPICAL 01/01/25 07:59 1 patch
DAILY SONJA Administration
Protocol
Magnesium Hydroxide 30 ml 12/03/24 12:56
Milk Of Magnesia 30 Ml Cup PO 12/31/24 12:55
BIDPRN PRN
if no BM in three days
Magnesium Oxide 500 mg 12/04/24 08:00
Magnesium Oxide 500 Mg Tablet PO 01/01/25 07:59
On Hold: 12/04/24 08:00 BID SONJA
Metoprolol Tartrate 12.5 mg 12/04/24 08:00 12/04/24 08:33
Metoprolol 12.5 Mg Regular Release Dose (1/2 Of 25 Mg Tablet) PO 01/01/25 07:59 12.5 mg
Q12 SONJA Administration
Mupirocin 0 applic 12/03/24 20:00 12/04/24 08:25
Mupirocin 2% (Ointment) 22 Gram Tube NASAL 12/07/24 08:01 1 applic
Q12 SONJA Administration
Ondansetron HCl 4 mg 12/03/24 12:56
Ondansetron 4 Mg/2 Ml Vial IV 12/31/24 12:55
Q8HPRN PRN
nausea/vomiting
Oxycodone HCl 5 mg 12/03/24 12:56
Oxycodone 5 Mg Regular Release Tablet PO 12/17/24 12:55
On Hold: 12/03/24 20:33 Q4HPRN PRN
moderate pain
Oxycodone HCl 2.5 mg 12/03/24 12:56
Oxycodone 5 Mg Regular Release Tablet PO 12/17/24 12:55
On Hold: 12/03/24 20:33 Q4HPRN PRN
mild pain
Pantoprazole Sodium 40 mg 12/04/24 08:00 12/04/24 08:31
Pantoprazole 40 Mg Delayed Release Tablet PO 01/01/25 07:59 40 mg
DAILY SONJA Administration
Patch Removal 1 patch 12/04/24 20:00
Remove Lidocaine Patch REMOVE 01/01/25 19:59
DAILY@2000 SONJA
Senna/Docusate Sodium 1 tablet 12/03/24 20:00 12/04/24 08:31
Docusate W/Senna (Rachele-Colace) Tablet PO 12/31/24 19:59 1 tablet
Q12 SONJA Administration
Sodium Chloride 0 flush 12/04/24 10:00
Sodium Chloride 0.9% (Flush) Syringe IV 01/01/25 09:59
PER PROTOCOL SONJA
Home Medications
�Medication �Instructions �Recorded
atorvastatin 20 mg tablet 20 mg PO HS High Cholesterol 10/04/22
ibuprofen 400 mg tablet 400 mg PO HS Pain 10/04/22
omega 9-kmt-pck-fish oil 1,000 mg 2 cap PO HS High Cholesterol 10/04/22
(120 mg-180 mg) capsule (Fish Oil)
[2024-12-04] MEDS: LIPITOR 80 MG PO (16:16)
--- NOTE | 2024-12-04 17:02 | PTCARENOTE ---
intermittently aphasic. but still absolutely improved since this am. no additional change in assessment from previous.
--- NOTE | 2024-12-04 19:30 | PTCARENOTE ---
assumed care of pt from previous RN. pt pt awake, alert, oriented to person and place. pt unable to state current month. able to state year. pt unable to state his own birthday. pt able to state his own age. pt w/ mild expressive aphasia. see stroke
neuro flowsheet for full details. SR on tele-monitor. temp epicardial v-wires plugged into pulse generator, backup settings VVI 40/8/2. POX 95% on RA. CT x4 (mediastinal x2, R & L pleural) to -20cm wall suction, draining serosanguineous drainage.
abd s/n, +BS. voiding clear, yellow colored urine. all surgical sites stable, CDI. R IJ cordis w/ KVO. PIV x2 intact. see worklist for complete nursing assessment, interventions, VS, and I&Os.
[2024-12-04] MEDS: REMOVE LIDOCAINE PATCH 1 PATCH REMOVE (19:54)
--- NOTE | 2024-12-05 | PTCARENOTE ---
assessment remains unchanged. VSS.
[2024-12-05 00:13] VITALS: BP 142/59
[2024-12-05 00:16] LABS: Glucose - Point of Care 142 mg/dl (70-99)
[2024-12-05 03:06] VITALS: BP 139/62
--- NOTE | 2024-12-05 03:14 | PTCARENOTE ---
assessment remains unchanged. VSS. AM labs collected and sent.
[2024-12-05 03:22] LABS: Hematocrit 29.6 % (39.0-52.0); Hemoglobin 9.6 g/dL (13.0-18.0); Mean Corp Hgb Conc. 32.4 g/dL (33.0-37.0); Mean Corpuscular Volume 84.6 fL (80.0-94.0); Platelet Count 202 10^3/uL (130-400); Red Cell Dist. Width 14.6 % (11.5-14.5)
[2024-12-05 03:46] LABS: Blood Urea Nitrogen 19 mg/dl (9-20); Calcium 7.9 mg/dl (8.4-10.2); Carbon Dioxide 24 mmol/L (22-30); Chloride 107 mmol/L (98-107); Estimated Creatinine Clearance 67 ml/min; Glucose 129 mg/dl (70-99); Magnesium 2.5 mg/dl (1.6-2.3); Potassium 4.7 mmol/L (3.5-5.1); Sodium 136 mmol/L (135-145); eGFR > 60.00
[2024-12-05] MEDS: TYLENOL 1000 MG PO ×3 (05:42→20:14)
[2024-12-05 06:00] VITALS: BMI 33.6
--- NOTE | 2024-12-05 06:17 | W.PN.CT ---
Addendum entered and electronically signed by Duc Orlando MD 12/05/24 10:56:
CARDIAC SURGERY ATTENDING:
Mr. Sadler's MRI was completed this AM. It demonstrated several (approximately 10) scattered small foci of nonhemorrhagic acute/subacute infarcts including within the bilateral parieto-occipital lobes, left temporal lobe and right cerebellar
hemisphere. Fortunately, from a neurologic perspective, the patient's speech continues to improve. He related to me that he feels he is able to have conversations with greater ease this morning. I did not observe any significant word finding
difficulty during our conversations. He has no lateralizing motor defects with 5/5 strength x 4. He is mentating appropriately with a GCS of 15. He denies any visual disturbances. Given the nonhemorrhagic nature of these strokes, will resume
Plavix/aspirin. Will continue frequent neurologic assessments. I updated the patient's son, who is currently driving from [place] to visit his father.
Greatly appreciate the ongoing expertise of my neurology colleagues in the management of this patient.
Thank you.
Duc Orlando MD
[phone]
Addendum entered and electronically signed by Duc Orlando MD 12/05/24 09:30:
I saw and examined the patient.
The PA's note was reviewed and I agree with the note.
Comment:
Neurological intact this AM w/ minor, intermittent word finding difficulties
Getting MRI this AM
Wires cut, CTs D/C'd
Resume plavix/ASA post MRI
OOB/IS/ambulate
Diuresis
Original Note:
Today's Communication / Plan
-
Plan:
-No major issues overnight. Hemodynamically intact
-Pt more confused than on my assessment yesterday morning, worsened expressive/Broca's aphasia
-Placed Plavix on hold
-Consider repeat Head CT to r/o hemorrhagic conversion of Left MCA non-occlusive thrombus found on CTA of head
-Consider MRI
-Avoid narcotics/sedatives
-Will make NPO
-Off all drips
-Cont. current meds (ASA, Plavix- placed on hold this AM, Amiodarone, Lopressor, Lipitor)
-Monitor chest tube output for possible d/c: 2meds 35/215, R/L pleurals 60/245
-Maintain temporary wires (will cut before d/c home)
-Encourage use of IS
-OOB into chair/Ambulate
Assessment / Plan
-
Assessment:
-S/P Median sternotomy/ CABG x 4 (ROBB to LAD, GSV to D1, GSV to OM, GSV to distal RCA)/Endoscopic harvest/prep of RLE GSV/ELAA (45mm Atriclip), by Dr. Orlando, 12/03/24, pod#2
-MVCAD
-NSTEMI (peak trop 10.1)
-LVEF 68% per TTE 11/30/24
-HTN Urgency
-Class 1 Obesity (BMI 32.9)
-Prediabetes (A1C 5.7)
-Former tobacco use
-OA
-S/P hernia repair x 3
-S/P T&A
-Acute postop blood loss/Anemia (stable without transfusion)
-Acute postop atelectasis
-Acute postop hypovolemia with subsequent hypervolemia
-Acute postop transient expressive aphasia, CTA of head showed non-occlusive thrombus @ Left MCA. Head CT was negative
Discussed patient care with: Cardiology, Nursing, Respiratory Therapy, Pharmacy and Care Team
Subjective
Procedure
-S/P Median sternotomy/ CABG x 4 (ROBB to LAD, GSV to D1, GSV to OM, GSV to distal RCA)/Endoscopic harvest/prep of RLE GSV/ELAA (45mm Atriclip), by Dr. Orlando, 12/03/24,
-
Date of Service: December 05, 2024
Pt more confused than on my assessment yesterday morning, worsened expressive/Broca's aphasia
Objective Data
-
Lab Results
12/05/24 03:10
12/05/24 03:10
PT 18.1 Sec (11.4-14.6) H 12/03/24 13:56
INR 1.47 12/03/24 13:56
APTT 34.2 Sec (23.4-35.0) 12/03/24 13:56
Vital Signs
Vital Signs
Temp Pulse Resp BP Pulse Ox
98.2 F 80 14 139/62 96
12/05/24 03:13 12/05/24 06:00 12/05/24 03:13 12/05/24 03:06 12/05/24 03:13
CT Intake/Output/Weight
12/04/24 12/04/24 12/05/24
06:59 18:59 06:59
Intake Total 269.6 / 515.2 346.7 / 466.7 120 / 466.7
Output Total 1090 / 1570 1165 / 1560 395 / 1560
Balance -820.4 / -1054.8 -818.3 / -1093.3 -275 / -1093.3
SaO2: 96 (RA)
Physical Exam
-
General: Awake and Other (Pt more confused than on my assessment yesterday morning, worsened expressive/Broca's aphasia)
Respiratory: Decreased Breath Sounds (at bases, otherwise clear)
Sternum: Stable
Incision: Clean, Dry, Intact and Dressing Intact
Extremities: Other (+trace edema)
Data Reviewed
-
Lab Results: Results Reviewed
Medications: Active Meds Reviewed
Chest X-Ray: Report Reviewed and Image Reviewed
ECG: Report Reviewed and Image Reviewed
--- NOTE | 2024-12-05 08:00 | PTCARENOTE ---
resumed care of pt from prev RN. patient reporting feeling a bit confused about time of day. slow to respond at times. NIHSS done -1. VSS. NSR HR 70s. +rub. v-wire set to backup . for d/c today. + pulses. pulse ox 97%. RA. IS 750. diminished
breath sounds. CTx4 to -20 suction, also for d/c today. +bs. poor appetite. using urinal independently. All surgical sites stable. Right IJ cordis and PIVx 2 patent. no complaints of pain at this time. will continue to monitor.
[2024-12-05] MEDS: PROTONIX 40 MG PO (09:02)
[2024-12-05] MEDS: LOPRESSOR 12.5 MG PO (09:02)
[2024-12-05] MEDS: LIDOCAINE 4% PATCH 1 PATCH TOPICAL (09:02)
[2024-12-05 09:03] VITALS: BP 152/60
[2024-12-05] MEDS: SENOKOT-S 1 TABLET PO ×2 (09:03→20:14)
[2024-12-05] MEDS: LOW STRENGTH ASPIRIN 81 MG PO (09:03)
[2024-12-05] MEDS: PACERONE 200 MG PO ×3 (09:03→20:14)
[2024-12-05] MEDS: BACTROBAN 2% OINTMENT 1 APPLIC NASAL ×2 (09:55→20:14)
[2024-12-05 11:40] VITALS: BP 155/66
--- NOTE | 2024-12-05 12:00 | PTCARENOTE ---
sent to MRI. no changes in assessment from previous.
[2024-12-05] MEDS: LASIX 40 MG IV (13:54)
--- NOTE | 2024-12-05 13:54 | W.PN.NEURO.1 ---
Today's Communication / Plan
-
MRI rev'd with patient
Neuro Assessment/Plan
Assessment
CTA head/neck imgs and report rev'd, showing L MCA non occlusive thrombus in M1 segment. age indeterminate left P2 occlusion. L carotid bulb 60-65% stenosis.
CT Perfusion scan imgs rev'd with L hemispheric no core infarct, penumbra 38 cc
brain MRI imgs rev'd with patient showing ~10 microemboli
74 year old man with rachele/intraoperative stroke/TIA during 4 vessel CABG. currently minimally symptomatic, was not a candidate for TNK last night given major surgery; presently no role for mechanical thrombectomy on the non-occlusive thrombus
secondary prevention continue ASA/Plavix/Lipitor 80
Subjective/Objective
Subjective Data
Date of Service: December 05, 2024
patient says he's feeling better and that his speech has been good
Objective Data
Vital Signs
Temp Pulse Resp BP Pulse Ox
37.2 C 73 18 139/62 96
12/05/24 08:00 12/05/24 09:00 12/05/24 08:00 12/05/24 03:06 12/05/24 08:00
Lab Results
12/05/24 03:10
12/05/24 03:10
PT 18.1 Sec (11.4-14.6) H 12/03/24 13:56
INR 1.47 12/03/24 13:56
APTT 34.2 Sec (23.4-35.0) 12/03/24 13:56
Sodium 136 mmol/L (135-145) 12/05/24 03:10
Potassium 4.7 mmol/L (3.5-5.1) 12/05/24 03:10
BUN 19 mg/dl (9-20) 12/05/24 03:10
Glucose 129 mg/dl (70-99) H 12/05/24 03:10
Calcium 7.9 mg/dl (8.4-10.2) L 12/05/24 03:10
LDL Cholesterol, Calc 89 mg/dl 11/30/24 03:26
Patient Allergies
No Known Allergies Allergy (Verified 11/29/24 22:36)
[2024-12-05] MEDS: NSS 500 IV (13:55)
[2024-12-05 15:42] VITALS: BP 148/50
[2024-12-05] MEDS: LIPITOR 80 MG PO (17:42)
--- NOTE | 2024-12-05 18:00 | PTCARENOTE ---
afib on monitor. HR 90-115. amio bolus ordered by EBONY Booth,
[2024-12-05] MEDS: CORDARONE 103 MG IV (18:10)
[2024-12-05] MEDS: CORDARONE 518 MG IV (18:59)
[2024-12-05 19:46] VITALS: BP 142/80
--- NOTE | 2024-12-05 20:00 | PTCARENOTE ---
assumed care of pt from previous RN. pt A&Ox4, resting in bed at time of assessment. NIHSS 0. see stroke/neuro flowsheet for details. A fib on tele-monitor. amio gtt infusing per order. POX 95% on RA. abd s/n, round, +BS. pt confirms passing gas.
voiding clear, yellow colored urine in urinal. all surgical sites stable, CDI. R IJ cordis. PIV x2 intact. see worklist for complete nursing assessment, interventions, VS, and I&Os.
[2024-12-05] MEDS: LOPRESSOR 25 MG PO (20:14)
[2024-12-05] MEDS: REMOVE LIDOCAINE PATCH 1 PATCH REMOVE (20:14)
[2024-12-06] VITALS (10 sets, daily range): BP systolic 113–160; BP diastolic 49–80; PULSE 71–73; O2SAT 98; BMI 32.8
--- NOTE | 2024-12-06 | PTCARENOTE ---
assessment remains unchanged. VSS.
--- NOTE | 2024-12-06 03:30 | PTCARENOTE ---
pt converted back to SR at 0311. no other acute changes. VSS. AM labs collected and sent.
[2024-12-06 03:33] LABS: Hematocrit 31.5 % (39.0-52.0); Hemoglobin 10.2 g/dL (13.0-18.0); Mean Corp Hgb Conc. 32.4 g/dL (33.0-37.0); Mean Corpuscular Volume 85.4 fL (80.0-94.0); Platelet Count 221 10^3/uL (130-400); Red Cell Dist. Width 14.7 % (11.5-14.5)
[2024-12-06 04:33] LABS: Blood Urea Nitrogen 19 mg/dl (9-20); Calcium 8.3 mg/dl (8.4-10.2); Carbon Dioxide 25 mmol/L (22-30); Chloride 104 mmol/L (98-107); Estimated Creatinine Clearance 73 ml/min; Glucose 128 mg/dl (70-99); Magnesium 2.4 mg/dl (1.6-2.3); Potassium 4.4 mmol/L (3.5-5.1); Sodium 134 mmol/L (135-145); eGFR > 60.00
--- NOTE | 2024-12-06 05:16 | W.PN.CT ---
Today's Communication / Plan
-
Plan:
-No major issues overnight. Hemodynamically intact and neurologically intact
-Mental status much better, alert and oriented x 3, no expressive aphasia noted on exam this AM, has good strength
-No bleed noted on MRI of brain yesterday 12/05, showed: several (approximately 10) scattered small foci of nonhemorrhagic acute/subacute infarcts including within the bilateral parieto-occipital lobes,
left temporal lobe and right cerebellar hemisphere
-ASA and Plavix resumed
-Avoid narcotics/sedatives
-Had approximately 10 hrs of a-fib with RVR yesterday into this AM, will discuss anticoagulation. Currently on Amiodarone gtt per protocol
-Keep cordis another day
-Temporary PW was cut yesterday 12/05 prior to MRI
-Cont. current meds (ASA, Plavix, Amiodarone, Lopressor, Lipitor)
-Encourage use of IS
-OOB into chair/Ambulate
Assessment / Plan
-
Assessment:
-S/P Median sternotomy/ CABG x 4 (ROBB to LAD, GSV to D1, GSV to OM, GSV to distal RCA)/Endoscopic harvest/prep of RLE GSV/ELAA (45mm Atriclip), by Dr. Orlando, 12/03/24, pod#3
-MVCAD
-NSTEMI (peak trop 10.1)
-LVEF 68% per TTE 11/30/24
-HTN Urgency
-Class 1 Obesity (BMI 32.9)
-Prediabetes (A1C 5.7)
-Former tobacco use
-OA
-S/P hernia repair x 3
-S/P T&A
-Acute postop blood loss/Anemia (stable without transfusion)
-Acute postop atelectasis
-Acute postop hypovolemia with subsequent hypervolemia
-Acute postop transient expressive aphasia, CTA of head showed non-occlusive thrombus @ Left MCA. Head CT was negative
-Acute postop embolic stroke
-Acute postop a-fib with RVR
Discussed patient care with: Cardiology, Nursing, Respiratory Therapy, Pharmacy and Care Team
Subjective
Procedure
-S/P Median sternotomy/ CABG x 4 (ROBB to LAD, GSV to D1, GSV to OM, GSV to distal RCA)/Endoscopic harvest/prep of RLE GSV/ELAA (45mm Atriclip), by Dr. Orlando, 12/03/24,
-
Date of Service: December 06, 2024
Pt c/o mild incisional pain, otherwise feels well
Objective Data
-
Lab Results
12/06/24 03:21
12/06/24 03:21
PT 18.1 Sec (11.4-14.6) H 12/03/24 13:56
INR 1.47 12/03/24 13:56
APTT 34.2 Sec (23.4-35.0) 12/03/24 13:56
Vital Signs
Vital Signs
Temp Pulse Resp BP Pulse Ox
98 F 67 12 130/64 97
12/06/24 03:30 12/06/24 04:00 12/06/24 03:30 12/06/24 03:18 12/06/24 03:30
CT Intake/Output/Weight
12/05/24 12/05/24 12/06/24
06:59 18:59 06:59
Intake Total 120 / 466.7 80 / 589.8 509.8 / 589.8
Output Total 395 / 1560 1849
Balance -275 / -1093.3 -1770 / -1385.2 384.8 / -1385.2
SaO2: 97 (RA)
Physical Exam
-
General: Awake, Oriented and AOx3
Cardiovascular: Regular rate & rhythm, No Murmurs, No Rub and No Gallop
Respiratory: Decreased Breath Sounds (at bases, otherwise clear)
Sternum: Stable
Incision: Clean, Dry, Intact and Dressing Intact
Extremities: Other (+trace edema)
Data Reviewed
-
Lab Results: Results Reviewed
Medications: Active Meds Reviewed
Chest X-Ray: Report Reviewed and Image Reviewed
ECG: Report Reviewed and Image Reviewed
[2024-12-06] MEDS: TYLENOL 1000 MG PO ×3 (06:02→20:07)
--- NOTE | 2024-12-06 07:39 | PTCARENOTE ---
assumed care of pt from previous shift RN, sinus rhythm on tele, VSS, + peripheral pulses, trace edema to bilateral lower extremities. Lungs diminished, pox 97% on RA, coughing and deep breathing encouraged. +bs, pt reports poor appetite, voids
spontaneously, adequate. Cordis and PIV flush easily. Amiodarone infusing as ordered. Plan of care reviewed w the pt and questions encouraged.
[2024-12-06 08:00] LABS: B.E. - POC 1.4 mmol/L; Glucose - POC 125 mg/dl (70-99); HCO3 - POC 26 mmol/L (21-28); Hematocrit - POC 39 % PCV (42-52); Hemodilution- POC No; Hemoglobin Calculated - POC 13.4; Ionized Calcium - POC 1.21 mmol/L (1.15-1.33); Lactate - POC < 0.30 mmol/L (0.36-0.75); O2 Saturation %Calculated-POC 100.0 % (94-98); PCO2 - POC 38 mmHg (35-48); PO2 - POC 546 mmHg (83-108); POC Comment PRE; Potassium - POC 4.1 mmol/L (3.5-5.1); Sodium - POC 141 mmol/L (136-145); Specimen Type - POC Arterial; pH - POC 7.44 (7.35-7.45)
[2024-12-06] MEDS: PACERONE 200 MG PO ×3 (09:08→20:07)
[2024-12-06] MEDS: PROTONIX 40 MG PO (09:08)
[2024-12-06] MEDS: LOW STRENGTH ASPIRIN 81 MG PO (09:08)
[2024-12-06] MEDS: PLAVIX 75 MG PO (09:09)
[2024-12-06] MEDS: LIDOCAINE 4% PATCH TOPICAL (09:09)
[2024-12-06] MEDS: LOPRESSOR 25 MG PO ×2 (09:09→20:07)
[2024-12-06] MEDS: SENOKOT-S PO ×2 (09:09→20:07)
[2024-12-06] MEDS: BACTROBAN 2% OINTMENT 1 APPLIC NASAL ×2 (09:17→20:07)
--- NOTE | 2024-12-06 10:34 | W.PN.CARDCBS ---
Today's Communication / Plan
-
Stable cardiology status status post CABG
Impression / Plan
-
PCP: Fariba Verduzco
Chemical Analyst: None prior to admission
Impression:
Presented 11/29/2024 with acute left sided chest pain, left arm pain and worsening dyspnea on exertion
NSTEMI
Multivessel CAD
s/p CABG x 4 (ROBB to LAD, GSV to D1, GSV to OM, GSV to distal RCA), BLAIRE clip 12/03/2024
Hypertensive urgency
Hyperlipidemia
Obesity
Osteoarthritis
Hernia with repair
Echo 11/30/2024: EF 68%. Normal wall motion. No significant valve disease
Cardiac catheterization 11/30/2024: LAD: prox 60%, tandem 90% prox and mid stenosis. Diagonal 1: 80% ostial stenosis. LCX: 50% prox and LI in large OM. 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 LVG EF 65%
Plan:
Stable cardiology status status post CABG
Remains in sinus rhythm
Discussed with CT surgery
HPI 11/30/2024: Patient is a 74 year old male with past medical history significant for hyperlipidemia obesity and osteoarthritis who presents to emergency department 11/29/2024 with acute onset of left-sided chest discomfort, left arm pain and
restlessness. Patient reports he has been dealing with intermittent low back pain which he thinks was a result of injury secondary to overdoing it with stretching and claribel chi. He was prescribed prednisone yesterday by PCP and took 1 dose last
evening. He then went to bed and was very restless. In the middle of the night he woke with acute onset left-sided chest pain radiating down his arm and some mild shortness of breath. When symptoms persisted he called 911. Patient was provided
aspirin en route via EMS. He was found to be hypertensive on arrival with blood pressure of 210/102. Patient was provided sublingual nitroglycerin and started on IV heparin. Chest x-ray showed no acute cardiopulmonary abnormality. EKG
demonstrated sinus rhythm with nonspecific ST abnormality. Initial troponin was negative however repeat troponin was 3.55. Patient also started on Nitropaste for ongoing hypertension. Overnight he was then started on IV nitroglycerin given blood
pressure remained elevated.
At time of this evaluation patient currently on IV heparin, IV nitroglycerin and is chest pain-free. Third set of troponin is pending
Progress Note - Chemical Analyst
Subjective
Date of Service: December 06, 2024
No chest pain or shortness of breath
Objective
Labs:
12/06/24 03:21
12/06/24 03:21
Labs
Hgb 10.2 g/dL (13.0-18.0) L 12/06/24 03:21
Hct 31.5 % (39.0-52.0) L 12/06/24 03:21
Plt Count 221 10^3/uL (130-400) 12/06/24 03:21
PT 18.1 Sec (11.4-14.6) H 12/03/24 13:56
INR 1.47 12/03/24 13:56
APTT 34.2 Sec (23.4-35.0) 12/03/24 13:56
Sodium 134 mmol/L (135-145) L 12/06/24 03:21
Potassium 4.4 mmol/L (3.5-5.1) 12/06/24 03:21
BUN 19 mg/dl (9-20) 12/06/24 03:21
Creatinine 1.0 mg/dL (0.7-1.3) 12/06/24 03:21
Glucose 128 mg/dl (70-99) H 12/06/24 03:21
Vital Signs and I&O:
Vital Signs
Temp Pulse Resp BP Pulse Ox
98.2 F 66 16 140/60 97
12/06/24 07:12 12/06/24 07:12 12/06/24 07:12 12/06/24 07:12 12/06/24 07:52
Vital Signs
Temp Pulse Resp BP Pulse Ox
98.2 F 66 16 140/60 97
12/06/24 07:12 12/06/24 07:12 12/06/24 07:12 12/06/24 07:12 12/06/24 07:52
Intake & Output
12/04/24 12/05/24 12/06/24 12/07/24
06:59 06:59 06:59 06:59
Intake Total 502.9 / 515.2 466.7 / 466.7 589.8 / 589.8 26.7 / 26.7
Output Total 1485 / 1570 1560 / 1560 2225 / 2225
Balance -982.1 / -1054.8 -1093.3 / -1093.3 -1635.2 / -1635.2 26.7 / 26.7
Physical Exam
Physical Exam
General: Well developed, well nourished in NAD.
Neck: Supple, no JVD, HJR, carotids +2 B/L, no bruits bilaterally.
Heart: Non displaced PMI, RRR, no murmurs, No S3, S4, no rubs.
Lungs: Scattered rhonchi
Sternal dressings noted
Extremities: No clubbing, cyanosis or edema bilaterally.
Neuro: Grossly nonfocal, awake, alert and oriented x3.
--- NOTE | 2024-12-06 13:00 | PTCARENOTE ---
pt tolerated PT/OT, assisted from chair to bed. Sinus rhythm maintained on tele.
[2024-12-06] MEDS: NSS 500 IV (15:28)
[2024-12-06] MEDS: LIPITOR 80 MG PO (15:28)
--- NOTE | 2024-12-06 15:43 | PTCARENOTE ---
sinus rhythm maintained on tele, pt denies pain.
--- NOTE | 2024-12-06 20:00 | PTCARENOTE ---
assumed care of pt from previous RN. pt A&Ox4, resting in chair at time of assessment. NIHSS 0. see stroke neuro flowsheet. SR on tele-monitor. POX 96% on RA. abd s/n, round. +BS. +BM. voiding clear, yellow colored urine. all surgical sites stable,
CDI. R IJ cordis w/ KVO. PIV x2 intact. see worklist for complete nursing assessment, interventions, VS, and I&Os.
[2024-12-06] MEDS: REMOVE LIDOCAINE PATCH REMOVE (20:07)
[2024-12-07] VITALS (10 sets, daily range): BP systolic 124–169; BP diastolic 60–86; PULSE 78; O2SAT 97; BMI 32.5
--- NOTE | 2024-12-07 | PTCARENOTE ---
assessment remains unchanged. VSS.
--- NOTE | 2024-12-07 03:15 | PTCARENOTE ---
no acute changes. VSS. AM labs collected and sent.
[2024-12-07 03:26] LABS: Hematocrit 31.1 % (39.0-52.0); Hemoglobin 10.0 g/dL (13.0-18.0); Mean Corp Hgb Conc. 32.2 g/dL (33.0-37.0); Mean Corpuscular Volume 84.5 fL (80.0-94.0); Platelet Count 264 10^3/uL (130-400); Red Cell Dist. Width 14.7 % (11.5-14.5)
[2024-12-07 03:49] LABS: Blood Urea Nitrogen 20 mg/dl (9-20); Calcium 8.5 mg/dl (8.4-10.2); Carbon Dioxide 25 mmol/L (22-30); Chloride 105 mmol/L (98-107); Estimated Creatinine Clearance 80 ml/min; Glucose 115 mg/dl (70-99); Magnesium 2.4 mg/dl (1.6-2.3); Potassium 4.3 mmol/L (3.5-5.1); Sodium 135 mmol/L (135-145); eGFR > 60.00
--- NOTE | 2024-12-07 05:14 | W.PN.CT ---
Today's Communication / Plan
-
Plan:
-No major issues overnight. Hemodynamically intact and neurologically intact
-Mental status has improved, alert and oriented x 3, no expressive aphasia noted on exam this AM, has good strength
-No bleed noted on MRI of brain 12/05, showed: several (approximately 10) scattered small foci of nonhemorrhagic acute/subacute infarcts including within the bilateral parieto-occipital lobes,
left temporal lobe and right cerebellar hemisphere
-ASA and Plavix resumed
-Avoid narcotics/sedatives
-Had approximately 10 hrs of a-fib with RVR on POD#2 int POD#3, none since, no OA for now per Dr. Orlando
-D/C cordis
-Temporary PW was cut 12/05 prior to MRI
-Cont. current meds (ASA, Plavix, Amiodarone, Lopressor, Lipitor)
-F/U 2-view cxr
-Encourage use of IS
-OOB into chair/Ambulate
-Physiatry to eveluate for possible [facility] rehab placement, lives alone
Assessment / Plan
-
Assessment:
-S/P Median sternotomy/ CABG x 4 (ROBB to LAD, GSV to D1, GSV to OM, GSV to distal RCA)/Endoscopic harvest/prep of RLE GSV/ELAA (45mm Atriclip), by Dr. Orlando, 12/03/24, pod#4
-MVCAD
-NSTEMI (peak trop 10.1)
-LVEF 68% per TTE 11/30/24
-HTN Urgency
-Class 1 Obesity (BMI 32.9)
-Prediabetes (A1C 5.7)
-Former tobacco use
-OA
-S/P hernia repair x 3
-S/P T&A
-Acute postop blood loss/Anemia (stable without transfusion)
-Acute postop atelectasis
-Acute postop hypovolemia with subsequent hypervolemia
-Acute postop transient expressive aphasia, CTA of head showed non-occlusive thrombus @ Left MCA. Head CT was negative
-Acute postop embolic stroke
-Acute postop a-fib with RVR
Discussed patient care with: Cardiology, Nursing, Respiratory Therapy, Pharmacy and Care Team
Subjective
Procedure
-S/P Median sternotomy/ CABG x 4 (ROBB to LAD, GSV to D1, GSV to OM, GSV to distal RCA)/Endoscopic harvest/prep of RLE GSV/ELAA (45mm Atriclip), by Dr. Orlando, 12/03/24,
-
Date of Service: December 07, 2024
Pt c/o mild incisional pain, otherwise feels well
Objective Data
-
Lab Results
12/07/24 03:13
12/07/24 03:13
PT 18.1 Sec (11.4-14.6) H 12/03/24 13:56
INR 1.47 12/03/24 13:56
APTT 34.2 Sec (23.4-35.0) 12/03/24 13:56
Vital Signs
Vital Signs
Temp Pulse Resp BP Pulse Ox
97.9 F 66 14 143/70 98
12/07/24 03:15 12/07/24 04:00 12/07/24 03:15 12/07/24 03:11 12/07/24 03:15
CT Intake/Output/Weight
12/06/24 12/06/24 12/07/24
06:59 18:59 06:59
Intake Total 509.8 / 589.8 26.7 / 116.7 90 / 116.7
Output Total 375 / 2225 200 / 825 625 / 825
Balance 134.8 / -1635.2 -173.3 / -708.3 -535 / -708.3
SaO2: 98 (RA)
Physical Exam
-
General: Awake, Oriented and AOx3
Cardiovascular: Regular rate & rhythm, No Murmurs, No Rub and No Gallop
Respiratory: Decreased Breath Sounds (at bases, otherwise clear)
Sternum: Stable
Incision: Clean, Dry, Intact and Dressing Intact
Extremities: Other (+trace edema)
Data Reviewed
-
Lab Results: Results Reviewed
Medications: Active Meds Reviewed
Chest X-Ray: Report Reviewed and Image Reviewed
ECG: Report Reviewed and Image Reviewed
[2024-12-07] MEDS: TYLENOL 1000 MG PO ×2 (06:45→21:59)
--- NOTE | 2024-12-07 07:11 | PTCARENOTE ---
assumed care of pt from previous shift RN, sinus rhythm on tele, VSS, + peripheral pulses, trace edema to bilateral lower extremities. Lungs diminished, pox 97% on RA, coughing and deep breathing encouraged. +bs, pt reports poor appetite, voids
spontaneously, adequate. Cordis and PIV flush easily. Plan of care reviewed w the pt and questions encouraged.
[2024-12-07] MEDS: LOW STRENGTH ASPIRIN 81 MG PO (09:24)
[2024-12-07] MEDS: PACERONE 200 MG PO ×3 (09:24→21:59)
[2024-12-07] MEDS: PLAVIX 75 MG PO (09:24)
[2024-12-07] MEDS: PROTONIX 40 MG PO (09:24)
[2024-12-07] MEDS: LIDOCAINE 4% PATCH TOPICAL (09:24)
[2024-12-07] MEDS: BACTROBAN 2% OINTMENT 1 APPLIC NASAL (09:25)
[2024-12-07] MEDS: LOPRESSOR 25 MG PO ×2 (09:27→19:45)
[2024-12-07] MEDS: SENOKOT-S PO ×2 (09:27→19:45)
--- NOTE | 2024-12-07 10:04 | W.PN.CARDCBS ---
Today's Communication / Plan
-
Continue supportive postop care and postop rehab efforts
Consider outpatient AF monitoring at time of discharge
Impression / Plan
-
PCP: Fariba Verduzco
Hospital Account Liaison: None prior to admission
Impression:
Presented 11/29/2024 with acute left sided chest pain, left arm pain and worsening dyspnea on exertion
NSTEMI
Multivessel CAD
s/p CABG x 4 (ROBB to LAD, GSV to D1, GSV to OM, GSV to distal RCA), BLAIRE clip 12/03/2024
Hypertensive urgency
Hyperlipidemia
Obesity
Osteoarthritis
Hernia with repair
Echo 11/30/2024: EF 68%. Normal wall motion. No significant valve disease
Cardiac catheterization 11/30/2024: LAD: prox 60%, tandem 90% prox and mid stenosis. Diagonal 1: 80% ostial stenosis. LCX: 50% prox and LI in large OM. 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 LVG EF 65%
Plan:
Non-STEMI 11/30/24, peak troponin 10.1 status post CABG x 4 (ROBB to LAD, GSV to D1, GSV to OM, GSV to distal RCA)/Endoscopic harvest/prep of RLE GSV/ELAA (45mm Atriclip), by Dr. Orlando, 12/03/24
- Hemodynamically stable doing well status post CABG
- Patient had postop transient expressive aphasia with CTA of the head showing nonocclusive thrombus at the left MCA. MRI of the brain 12/05: several (approximately 10) scattered small foci of nonhemorrhagic acute/subacute infarcts including within
the bilateral parieto-occipital lobes. Speech clear and grossly nonfocal on limited exam this morning. Neurology consulted. Continue aspirin/Plavix and high intensity Lipitor
- Postop atrial fibrillation on day 2 currently in sinus rhythm. Will discuss with CT surgery anticoagulation. Currently on aspirin/Plavix. Continue amiodarone and Lopressor.
- blood pressures remain hypertensive-will discuss with CT surgery adding valsartan
- LDL on admission 89 mg/dL�now on Atorvastatin 80 mg daily.
- Cardiac rehab consulted�continue rehab efforts.
HPI 11/30/2024: Patient is a 74 year old male with past medical history significant for hyperlipidemia obesity and osteoarthritis who presents to emergency department 11/29/2024 with acute onset of left-sided chest discomfort, left arm pain and
restlessness. Patient reports he has been dealing with intermittent low back pain which he thinks was a result of injury secondary to overdoing it with stretching and claribel chi. He was prescribed prednisone yesterday by PCP and took 1 dose last
evening. He then went to bed and was very restless. In the middle of the night he woke with acute onset left-sided chest pain radiating down his arm and some mild shortness of breath. When symptoms persisted he called 911. Patient was provided
aspirin en route via EMS. He was found to be hypertensive on arrival with blood pressure of 210/102. Patient was provided sublingual nitroglycerin and started on IV heparin. Chest x-ray showed no acute cardiopulmonary abnormality. EKG
demonstrated sinus rhythm with nonspecific ST abnormality. Initial troponin was negative however repeat troponin was 3.55. Patient also started on Nitropaste for ongoing hypertension. Overnight he was then started on IV nitroglycerin given blood
pressure remained elevated.
At time of this evaluation patient currently on IV heparin, IV nitroglycerin and is chest pain-free. Third set of troponin is pending
Progress Note - Hospital Account Liaison
Subjective
Date of Service: December 07, 2024
Patient was seen and examined sitting out of bed to chair. Denies chest pain or pressure, shortness of breath or palpitations. No recurrent speech issues; no focal weakness. Voiding well and has had multiple bowel movements.
Objective
Labs:
12/07/24 03:13
12/07/24 03:13
Labs
Hgb 10.0 g/dL (13.0-18.0) L 12/07/24 03:13
Hct 31.1 % (39.0-52.0) L 12/07/24 03:13
Plt Count 264 10^3/uL (130-400) 12/07/24 03:13
PT 18.1 Sec (11.4-14.6) H 12/03/24 13:56
INR 1.47 12/03/24 13:56
APTT 34.2 Sec (23.4-35.0) 12/03/24 13:56
Sodium 135 mmol/L (135-145) 12/07/24 03:13
Potassium 4.3 mmol/L (3.5-5.1) 12/07/24 03:13
BUN 20 mg/dl (9-20) 12/07/24 03:13
Creatinine 0.9 mg/dL (0.7-1.3) 12/07/24 03:13
Glucose 115 mg/dl (70-99) H 12/07/24 03:13
Vital Signs and I&O:
Vital Signs
Temp Pulse Resp BP Pulse Ox
98.6 F 81 16 165/75 96
12/07/24 07:12 12/07/24 10:00 12/07/24 07:12 12/07/24 09:01 12/07/24 09:01
Vital Signs
Temp Pulse Resp BP Pulse Ox
98.6 F 81 16 165/75 96
12/07/24 07:12 12/07/24 10:00 12/07/24 07:12 12/07/24 09:01 12/07/24 09:01
Intake & Output
12/05/24 12/06/24 12/07/24 12/08/24
06:59 06:59 06:59 06:59
Intake Total 466.7 / 466.7 589.8 / 589.8 116.7 / 116.7
Output Total 1560 / 1560 2225 / 2225 825 / 825
Balance -1093.3 / -1093.3 -1635.2 / -1635.2 -708.3 / -708.3
Physical Exam
Physical Exam
General: NAD sitting out of bed to chair
Neck: Positive cord
Heart: Regular. Positive S1-S2. Incisions intact. No murmurs or rub
Lungs: Bronchovesicular breath sounds decreased but clear
Extremities: No edema
--- NOTE | 2024-12-07 10:55 | CON.MD ---
Documented by User: Elyssa Fernandez MD, Resident 12/07/24 15:33
Consultation - Medical
-
Chief Complaint:�CABG x 4 and perioperative stroke
�
History of Present Illness:��74 y/o male with past medical history significant for obesity and dyslipidemia who presented to the [facility] ED complaining of chest discomfort and dyspnea. Patient stated that he recently developed left lower back
discomfort. He was seen by his PCP on 11/29/24 and given Rx for a prednisone taper. He took his first dose around lunchtime with food. He felt well until that same evening when he went to bed. He placed some heating patches on his lower back.
He notes that he was very restless, 'tossing and turning', which is atypical for him. He then noted a numb / tingling sensation in the L chest - meena to one's arm 'falling asleep'. He began to feel short of breath and flushed. No nausea or
diaphoresis. He denied any prior history of similar symptoms. He called 911 and was brought to the ED for further evaluation and treatment.
Patient states that he has noted dyspnea with activity that has been gradually progressive over the past several months / one year.
Patient received 3 SL NTG and symptoms resolved in the ED.
Patient is anxious about returning to living alone, such as driving and getting groceries. He feels he has a long way to go to becoming independent again.
His most dependable support is his son in [place], who is farther away and unable to visit often, although his son is visiting him right now because he is in between jobs. He feels he cannot count his other son. He believes his brother in [place] who
works for [employer] does not have the occupational skills to help much. He has a few friends nearby who may be able to help.
�
Past Medical History:�HLD, obesity, osteoarthritis
Procedure History:�T&A, hernia repair
Family History:�Not pertinent
�
Social History:�
Functional Level Premorbidly: Independent with all activities�
Functional Level Currently:��
PT: Mod assist for bed mobility. Supervision for transfers and ambulation. Endurance is limited as it was prior to admission per patient. May have cognitive issues, as unable to recall sternal precautions
� Recommends acute rehab
OT: Good upper body AROM, strength, coordination. Vision and visual brito grossly intact. Scored 32 out of 50 on BCAT with deficits with attention, memory, executive function, and following multistep directions. Supervision with toileting,
standing, grooming at sink, lower body dressing, transfers and function ability in room and bathroom without AD
�Recommends outpatient OT
Tobacco: Denies�
Alcohol: Denies�
Drug use: Denies�
�
Lives with:�Alone
24-hour assistance available:��No
Number of floors:��1
# steps to enter:�0
Driving:�Yes
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
��
�
Allergies:��
�
Allergy/AdvReac Type Severity Reaction Status Date / Time
No Known Allergies Allergy Verified 11/29/24 22:36
Review of Systems:�
Constitutional: fatigued�
Eye: (x) Normal _�
Ear/Nose/Throat: (x) Normal _�
Respiratory: (x) Normal _�
Cardiovascular: Sternotomy incision pain well controlled on pain medications
Gastrointestinal: (x) Normal _�
Genitourinary: (x) Normal _�
Musculoskeletal: (x) Normal _�
Integumentary: (x) Normal _�
Neurologic: (x) Normal _�
Psychiatric: Anxious
Endocrine: (x) Normal _�
Hematologic/Lymphatic: (x) Normal _�
Allergic/Immunologic: (x) Normal _�
�
Medications:�
�
Generic Name Dose Route Start Last Admin
Trade Name Freq PRN Reason Stop Dose Admin
Acetaminophen 1,000 mg 12/03/24 14:00 12/07/24 06:45
Acetaminophen 500 Mg Tablet PO 12/31/24 13:59 1,000 mg
TID@0600,1400,2200 SONJA Administration
Acetaminophen 650 mg 08/15/25 12:56
Acetaminophen 325 Mg Tablet PO 12/31/24 12:55
Q4HPRN PRN
mild pain,headache,temp >101F
Albuterol 2 puff 12/03/24 12:56
Albuterol Hfa [90 Mcg/Dose] Inhaler INH
R Q4HPRN PRN
wheezing/shortness of breath
Protocol
Amiodarone HCl 200 mg 12/03/24 16:00 12/07/24 09:24
Amiodarone 200 Mg Tablet PO 12/31/24 15:59 200 mg
TID SONJA Administration
Aspirin 81 mg 12/04/24 08:00 12/07/24 09:24
Aspirin 81 Mg Chewable Tablet PO 01/01/25 07:59 81 mg
DAILY SONJA Administration
Atorvastatin Calcium 80 mg 11/30/24 18:00 12/06/24 15:28
Atorvastatin (Lipitor) 80 Mg Tablet PO 12/28/24 17:59 80 mg
QPM SONJA Administration
Bisacodyl 10 mg 12/03/24 12:56
Bisacodyl 10 Mg Rectal Suppository RECTAL 12/31/24 12:55
DAILYPRN PRN
constipation
Clopidogrel Bisulfate 75 mg 12/04/24 08:00 12/07/24 09:24
Clopidogrel 75 Mg Tablet PO 01/01/25 07:59 75 mg
DAILY SONJA Administration
Sodium Chloride 500 mls @ 10 mls/hr 12/03/24 12:56 12/06/24 15:28
Nss IV 12/31/24 07:59 500 mls
CORDIS SONJA Administration
Lidocaine 1 patch 12/04/24 08:00 12/07/24 09:24
Lidocaine 4% Topical Patch TOPICAL 01/01/25 07:59 Not Given
DAILY SONJA
Protocol
Magnesium Hydroxide 30 ml 12/03/24 12:56
Milk Of Magnesia 30 Ml Cup PO 12/31/24 12:55
BIDPRN PRN
if no BM in three days
Magnesium Oxide 400 mg 12/07/24 20:00
Magnesium Oxide 400 Mg Tablet PO 01/01/25 07:59
BID SONJA
Metoprolol Succinate 50 mg 12/08/24 08:00
Metoprolol 50 Mg Extended Release Tablet PO 01/05/25 07:59
DAILY SONJA
Metoprolol Tartrate 25 mg 12/05/24 20:00 12/07/24 09:27
Metoprolol 25 Mg Regular Release Tablet PO 12/07/24 20:02 25 mg
Q12 SONJA Administration
Ondansetron HCl 4 mg 12/03/24 12:56
Ondansetron 4 Mg/2 Ml Vial IV 12/31/24 12:55
Q8HPRN PRN
nausea/vomiting
Oxycodone HCl 5 mg 12/03/24 12:56
Oxycodone 5 Mg Regular Release Tablet PO 12/17/24 12:55
On Hold: 12/03/24 20:33 Q4HPRN PRN
moderate pain
Oxycodone HCl 2.5 mg 12/03/24 12:56
Oxycodone 5 Mg Regular Release Tablet PO 12/17/24 12:55
On Hold: 12/03/24 20:33 Q4HPRN PRN
mild pain
Pantoprazole Sodium 40 mg 12/04/24 08:00 12/07/24 09:24
Pantoprazole 40 Mg Delayed Release Tablet PO 01/01/25 07:59 40 mg
DAILY SONJA Administration
Patch Removal 1 patch 12/04/24 20:00 12/06/24 20:07
Remove Lidocaine Patch REMOVE 01/01/25 19:59 Not Given
DAILY@2000 SONJA
Senna/Docusate Sodium 1 tablet 12/03/24 20:00 12/07/24 09:27
Docusate W/Senna (Lilly-Colace) Tablet PO 12/31/24 19:59 Not Given
Q12 SONJA
Sodium Chloride 0 flush 12/04/24 10:00
Sodium Chloride 0.9% (Flush) Syringe IV 01/01/25 09:59
PER PROTOCOL SONJA
Vitals:�
�
Temp Pulse Resp BP Pulse Ox
98.6 F 81 16 165/75 98
12/07/24 07:12 12/07/24 10:00 12/07/24 07:12 12/07/24 09:01 12/07/24 10:07
Height 5 ft 8 in
Actual Weight 97 kg
Body Mass Index (BMI) 32.5
Physical Exam:�
General Appearance/Observation: Well-developed, well-nourished individual in no apparent distress.�
Pain/Comfort Assessment: Denies��
Mood/Affect: Appropriate�
�
Integumentary/Operative Site:�
�� Pressure Ulcer Evaluation: absent over heels.�
�� Other Type of Wound: Sternotomy Operative Site mild pain well controlled on pain medications. Lower extremity bypass graft incision sites healing well
�
Eyes: Conjunctiva/Lids: normal Pupils: pupils equal round and reactive to light and Accommodation�
Ears/Nose/Throat: oral mucosa moist,� throat clear. Lips/Teeth/Gums: normal�
Neck: No muscle spasm or tenderness�
Cardiovascular: Heart: regular, no murmur�
Pulses: radial 2+ bilaterally�
Respiratory: Respiratory Effort/Chest Expansion: normal Auscultation: Clear to auscultation bilaterally�
Gastrointestinal: abdomen not tender, no distension, normal abdominal bowel sounds�
Genitourinary: No Spear�
Rectal Exam: Deferred�
Extremities: Edema: None Cyanosis: None Trophic changes: None�
�
�
Neurology Exam:�
Orientation: Alert, Oriented to self, Time, Place�
Memory: Intact immediately and to medical condition
Higher cortical function�
Repetition: Intact�
Comprehension: Intact�
Two step command: Intact�
Naming: Intact�
�
Cranial Nerves:�
�� CNII: Pupillary light reflex: Intact��� Visual Field: Intact�
�� CN III, IV, : Extraocular muscles: Intact��
�� CN V: Facial Sensation at Forehead: Intact, Maxilla: Intact, Mandible: Intact �
�� CN VII: Facial movement: Symmetric�
�� CN VIII: Hearing: Normal�
�� CN IX/X: Speech & swallow: Normal, Position of Uvula: Midline�
�� CN XI: Shoulder shrug: Symmetric�
�� CN XII: Tongue protrusion: Midline�
�
Sensory:�
�� Light touch: Intact in bilateral upper and lower extremities�
�� Proprioception: Intact in bilateral upper and lower extremities��
�
Reflexes:�
�� Biceps: 2+ bilaterally�
�� Brachioradialis: 2+ bilaterally�
�� Triceps: 2+ bilaterally�
�� Patellar: 2+ bilaterally�
�� Achilles: 2+ bilaterally�
�� Babinski: Down going bilaterally�
�� Clonus: None�
�� Ying: Negative bilaterally�
Cerebellar: Dysmetria/Ataxia: None�
�
Musculoskeletal:�
�
Motor: (Manual muscle scale 0-5)�
Muscle� SA� EF� WE� EE� FF� FA� HF� KE� DF� EHL� PF�
Right��� 5� 5� 5� 5� 5� 5� 5� 5� 5� 5� 5�
Left� 5� 5� 5� 5� 5� 5� 5� 5� 5� 5� 5�
�
Tone: Normal in all extremities�
Range of Motion: Passively within normal limits in all extremities�
�
Lab Results�
��
12/07/24 03:13
12/07/24 03:13
WBC 15.9 10^3/uL (4.8-10.8) H 12/07/24 03:13
Hgb 10.0 g/dL (13.0-18.0) L 12/07/24 03:13
Hct 31.1 % (39.0-52.0) L 12/07/24 03:13
MCV 84.5 fL (80.0-94.0) 12/07/24 03:13
Plt Count 264 10^3/uL (130-400) 12/07/24 03:13
PT 18.1 Sec (11.4-14.6) H 12/03/24 13:56
INR 1.47 12/03/24 13:56
Sodium 135 mmol/L (135-145) 12/07/24 03:13
Potassium 4.3 mmol/L (3.5-5.1) 12/07/24 03:13
Chloride 105 mmol/L (98-107) 12/07/24 03:13
Carbon Dioxide 25 mmol/L (22-30) 12/07/24 03:13
BUN 20 mg/dl (9-20) 12/07/24 03:13
Creatinine 0.9 mg/dL (0.7-1.3) 12/07/24 03:13
eGFR > 60.00 12/07/24 03:13
Glucose 115 mg/dl (70-99) H 12/07/24 03:13
Hemoglobin A1c 5.7 % (4.0-5.6) H 11/30/24 03:26
Calcium 8.5 mg/dl (8.4-10.2) 12/07/24 03:13
Magnesium 2.4 mg/dl (1.6-2.3) H 12/07/24 03:13
Total Bilirubin 0.8 mg/dl (0.2-1.3) 12/01/24 05:30
Direct Bilirubin 0.2 mg/dl (0.0-0.4) 12/01/24 05:30
AST 47 U/L (17-59) 12/01/24 05:30
ALT 33 U/L (0-50) 12/01/24 05:30
Alkaline Phosphatase 68 U/L (38-126) 12/01/24 05:30
Total Protein 7.5 g/dl (6.3-8.2) 12/01/24 05:30
Albumin 4.5 g/dl (3.5-5.0) 12/01/24 05:30
Diagnostic Results: as per HPI�
�
Assessment�
Mr. Brando Sadler is a 74-year-old male with a PMH notable for HLD who presented with chest pain. After his CABG x 4, he was noted to have word finding difficulty and was not oriented. He was found to have a perioperative stroke. He had a left M1
nonocclusive thrombus, age-indeterminate left P2 occlusion, left carotid bulb 60 to 65% stenosis, penumbra 38 cc, about 10 micro emboli. He was not a candidate for TNK due to recent open heart surgery. He received secondary prevention with
aspirin, Plavix, and Lipitor 80 mg. He no longer has word finding difficulty or confusion.
He mainly complains of feeling fatigued and anxious about returning to living independently, as he has no dependable support nearby. He is highly motivated and wants to do therapy for 3+ hours a day to return to his independent baseline.
Plan��
PM&R PT/OT to increase independence with ADLs, imMr. Brando Lewis is a 74-year-old male with a PMH notable forprove balance, coordination, endurance, strength, mobility, community reintegration, decreased burden of care on others and family education.�
�
STEMI S/P CABG x 4: Sternal precautions.� Aspirin 81 mg po daily, atorvastatin 80 mg po qPM, BP control.� Monitor incision, pain control.��
Coronary artery disease : Aspirin 81 mg p.o. daily, atorvastatin 80 mg p.o. every afternoon, metoprolol tartrate 25 mg p.o. every 12, metoprolol succinate 50 mg p.o. daily
CVA: Secondary prophylaxis with aspirin 81 mg p.o. daily, clopidogrel 75 mg p.o. daily, atorvastatin 80 mg p.o. every afternoon, and blood pressure control (SBP less than 180 and diastolic less than 100 to participate with therapy for ischemic
stroke). Continue to monitor neurologic status.��
HTN: continue medications, monitor closely�
HLD: Atorvastatin 80 mg p.o. every afternoon
Anemia: Likely multifactorial.� Continue to monitor.�
�
Psych: Psychology consult.� Monitor mood, adjust medications as needed.��
Skin: monitor for pressure sores/rashes/lesions.�
Pain: acetaminophen or oxycodone as needed.�
Bowel: Colace and Senna, PRN bisacodyl.�
Bladder: Time void, PVRs, PRN straight cath.�
GI Prophylaxis: Pantoprazole�
DVT Prophylaxis: aspiring & clopidogrel s/p CABG
Pulmonary: Incentive spirometry�
Safety: Continue to reinforce assistance with all transfers.�
Code Status:� Full code
Dispo (date/plan/equipment needs): Home with home PT.� Social history reviewed.�
�
Functional and Medical Goals: Modified Independent with ADL�s, ambulation, transfers�
�
SUMMARY�
Things that must be addressed in Hospital prior to discharge:�
Patient must be stable on oral pain medications.�
Only Pigtail chest tubes are possible.�
Blood pressure must be less than 180 systolic and 100 diastolic for 24 hours before being stable for transfer to SNF/acute rehab.�
Please give blood pressure parameters.�
Please comment on ROM, bracing and weight bearing precautions.�
Please comment on dvt chemoprophylaxis restrictions.�
��
Summary of recommendations:�
- Discharge Destination: Home with home PT
�
�
Will continue to follow patient.�
Thank you for allowing me to care for your patient. Please contact me with any questions or concerns.�
�
This note was dictated using a voice recognition system. Please excuse any typographical errors from oil pipe inspector helper. If you believe there are any discrepancies, please notify our office.�
�
Consultation
-
Date/Time Consultation Requested: 12/06/2024
Date/Time Consultation Performed: 12/07/2024
Requesting Provider: Magdaleno Bautista
Performing Provider: Tad Mccain
Reason for Consultation: CABG x 4 and perioperative stroke

Documented by User: Tad Chapin MD 12/07/24 23:05
Consultation - Medical
-
Chief Complaint:�CABG x 4 and perioperative stroke
�
History of Present Illness: 74-year-old male with PMH (HLD, obesity, osteoarthritis) presented to [facility] on 11/29/2024 with chest discomfort and dyspnea. Patient stated that he recently developed left lower back discomfort. He was seen
by his PCP on 11/29/24 and given Rx for a prednisone taper. He took his first dose around lunchtime with food. He felt well until that same evening when he went to bed. He placed some heating patches on his lower back. He notes that he was very
restless, 'tossing and turning', which is atypical for him. He then noted a numb / tingling sensation in the L chest - meena to one's arm 'falling asleep'. He began to feel short of breath and flushed. No nausea or diaphoresis. He denied any
prior history of similar symptoms. He called 911 and was brought to the ED for further evaluation and treatment. Patient states that he has noted dyspnea with activity that has been gradually progressive over the past several months / one year.
Patient received 3 sublingual nitroglycerin and symptoms resolved in the ED.
Patient is anxious about returning to living alone, such as driving and getting groceries. He feels he has a long way to go to becoming independent again.
His most dependable support is his son in [place], who is farther away and unable to visit often, although his son is visiting him right now because he is in between jobs. He feels he cannot count his other son. He believes his brother in [place] who
works for [employer] does not have the occupational skills to help much. He has a few friends nearby who may be able to help.
�
Past Medical History:�HLD, obesity, osteoarthritis
Procedure History:�T&A, hernia repair
Family History:�Not pertinent
�
Social History:�
Functional Level Premorbidly: Independent with all activities�
Functional Level Currently:��
PT: Mod assist for bed mobility. Supervision for transfers and ambulating 70 feet without device. Endurance is limited as it was prior to admission per patient. May have cognitive issues, as unable to recall sternal precautions
� Recommends acute rehab
OT: Good upper body AROM, strength, coordination. Vision and visual brito grossly intact. Scored 32 out of 50 on BCAT with deficits with attention, memory, executive function, and following multistep directions. Supervision with toileting,
standing, grooming at sink, lower body dressing, transfers and function ability in room and bathroom without AD
�Recommends outpatient OT
Tobacco: Denies�
Alcohol: Denies�
Drug use: Denies�
�
Lives with:�Alone
24-hour assistance available:��No
Number of floors:��1
# steps to enter:�0
Driving:�Yes
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
��
�
Allergies:��
�
Allergy/AdvReac Type Severity Reaction Status Date / Time
No Known Allergies Allergy Verified 11/29/24 22:36
Review of Systems:�
Constitutional: fatigued�
Eye: (x) Normal _�
Ear/Nose/Throat: (x) Normal _�
Respiratory: (x) Normal _�
Cardiovascular: Sternotomy incision pain well controlled on pain medications
Gastrointestinal: (x) Normal _�
Genitourinary: (x) Normal _�
Musculoskeletal: (x) Normal _�
Integumentary: (x) abNormal _has incision over chest and right leg
Neurologic: (x) Normal _�
Psychiatric: Anxious
Endocrine: (x) Normal _�
Hematologic/Lymphatic: (x) Normal _�
Allergic/Immunologic: (x) Normal _�
�
Medications:�
�
Generic Name Dose Route Start Last Admin
Trade Name Freq PRN Reason Stop Dose Admin
Acetaminophen 1,000 mg 12/03/24 14:00 12/07/24 06:45
Acetaminophen 500 Mg Tablet PO 12/31/24 13:59 1,000 mg
TID@0600,1400,2200 SONJA Administration
Acetaminophen 650 mg 12/03/24 12:56
Acetaminophen 325 Mg Tablet PO 12/31/24 12:55
Q4HPRN PRN
mild pain,headache,temp >101F
Albuterol 2 puff 12/03/24 12:56
Albuterol Hfa [90 Mcg/Dose] Inhaler INH
R Q4HPRN PRN
wheezing/shortness of breath
Protocol
Amiodarone HCl 200 mg 12/03/24 16:00 12/07/24 09:24
Amiodarone 200 Mg Tablet PO 12/31/24 15:59 200 mg
TID SONJA Administration
Aspirin 81 mg 12/04/24 08:00 12/07/24 09:24
Aspirin 81 Mg Chewable Tablet PO 01/01/25 07:59 81 mg
DAILY SONJA Administration
Atorvastatin Calcium 80 mg 11/30/24 18:00 12/06/24 15:28
Atorvastatin (Lipitor) 80 Mg Tablet PO 12/28/24 17:59 80 mg
QPM SONJA Administration
Bisacodyl 10 mg 12/03/24 12:56
Bisacodyl 10 Mg Rectal Suppository RECTAL 12/31/24 12:55
DAILYPRN PRN
constipation
Clopidogrel Bisulfate 75 mg 12/04/24 08:00 12/07/24 09:24
Clopidogrel 75 Mg Tablet PO 01/01/25 07:59 75 mg
DAILY SONJA Administration
Sodium Chloride 500 mls @ 10 mls/hr 12/03/24 12:56 12/06/24 15:28
Nss IV 12/31/24 07:59 500 mls
CORDIS SONJA Administration
Lidocaine 1 patch 12/04/24 08:00 12/07/24 09:24
Lidocaine 4% Topical Patch TOPICAL 01/01/25 07:59 Not Given
DAILY SONJA
Protocol
Magnesium Hydroxide 30 ml 12/03/24 12:56
Milk Of Magnesia 30 Ml Cup PO 12/31/24 12:55
BIDPRN PRN
if no BM in three days
Magnesium Oxide 400 mg 12/07/24 20:00
Magnesium Oxide 400 Mg Tablet PO 01/01/25 07:59
BID SONJA
Metoprolol Succinate 50 mg 12/08/24 08:00
Metoprolol 50 Mg Extended Release Tablet PO 01/05/25 07:59
DAILY SONJA
Metoprolol Tartrate 25 mg 12/05/24 20:00 12/07/24 09:27
Metoprolol 25 Mg Regular Release Tablet PO 12/07/24 20:02 25 mg
Q12 SONJA Administration
Ondansetron HCl 4 mg 12/03/24 12:56
Ondansetron 4 Mg/2 Ml Vial IV 12/31/24 12:55
Q8HPRN PRN
nausea/vomiting
Oxycodone HCl 5 mg 12/03/24 12:56
Oxycodone 5 Mg Regular Release Tablet PO 12/17/24 12:55
On Hold: 12/03/24 20:33 Q4HPRN PRN
moderate pain
Oxycodone HCl 2.5 mg 12/03/24 12:56
Oxycodone 5 Mg Regular Release Tablet PO 12/17/24 12:55
On Hold: 12/03/24 20:33 Q4HPRN PRN
mild pain
Pantoprazole Sodium 40 mg 12/04/24 08:00 12/07/24 09:24
Pantoprazole 40 Mg Delayed Release Tablet PO 01/01/25 07:59 40 mg
DAILY SONJA Administration
Patch Removal 1 patch 12/04/24 20:00 12/06/24 20:07
Remove Lidocaine Patch REMOVE 01/01/25 19:59 Not Given
DAILY@2000 SONJA
Senna/Docusate Sodium 1 tablet 12/03/24 20:00 12/07/24 09:27
Docusate W/Senna (Lilly-Colace) Tablet PO 12/31/24 19:59 Not Given
Q12 SONJA
Sodium Chloride 0 flush 12/04/24 10:00
Sodium Chloride 0.9% (Flush) Syringe IV 01/01/25 09:59
PER PROTOCOL SONJA
Vitals:�
�
Temp Pulse Resp BP Pulse Ox
98.6 F 81 16 165/75 98
12/07/24 07:12 12/07/24 10:00 12/07/24 07:12 12/07/24 09:01 12/07/24 10:07
Height 5 ft 8 in
Actual Weight 97 kg
Body Mass Index (BMI) 32.5
Physical Exam:�
General Appearance/Observation: Well-developed, well-nourished male in no apparent distress.�
Pain/Comfort Assessment: Denies��
Mood/Affect: Appropriate�
�
Integumentary/Operative Site:�Sternotomy Operative Site mild pain well controlled on pain medications. Right lower extremity bypass graft incision sites healing well
�
Eyes: Conjunctiva/Lids: normal Pupils: pupils equal round and reactive to light and Accommodation�
Ears/Nose/Throat: oral mucosa moist,� throat clear. Lips/Teeth/Gums: normal�
Neck: No muscle spasm or tenderness�
Cardiovascular: Heart: regular, no murmur�
Pulses: dorsalis pedis 2+ bilaterally�
Respiratory: Respiratory Effort/Chest Expansion: normal Auscultation: Clear to auscultation bilaterally�
Gastrointestinal: abdomen not tender, no distension, normal abdominal bowel sounds�
Genitourinary: No Spear�
Rectal Exam: Deferred�
Extremities: Edema: None Cyanosis: None Trophic changes: None�
�
�
Neurology Exam:�
Orientation: Alert, Oriented to self, Time, Place�
Memory: Intact immediately and to medical condition
Repetition: Intact�
Comprehension: Intact�
Two step command: Intact�
Naming: Intact�
Able to read correct time off of analog clock crossed the room.
�
Cranial Nerves:�
�� CNII: Pupillary light reflex: Intact��� Visual Field: Intact�
�� CN III, IV, : Extraocular muscles: Intact��
�� CN V: Facial Sensation at Forehead: Intact, Maxilla: Intact, Mandible: Intact �
�� CN VII: Facial movement: Symmetric�
�� CN VIII: Hearing: Normal�
�� CN IX/X: Speech & swallow: Normal, Position of Uvula: Midline�
�� CN XI: Shoulder shrug: Symmetric�
�� CN XII: Tongue protrusion: Midline�
�
Sensory:�
�� Light touch: Intact in bilateral upper and lower extremities�
�� Proprioception: Intact in bilateral upper and lower extremities��
�
Reflexes:�
�� Biceps: 2+ bilaterally�
�� Brachioradialis: 2+ bilaterally�
�� Triceps: 2+ bilaterally�
�� Patellar: 2+ bilaterally�
�� Achilles: 0 bilaterally�
�� Babinski: Down going bilaterally�
�� Clonus: None�
�� Ying: Negative bilaterally�
Cerebellar: Dysmetria/Ataxia: None�
�
Musculoskeletal:�Motor: (Manual muscle scale 0-5)�
Muscle� SA� EF� WE� EE� FF� FA� HF� KE� DF� EHL� PF�
Right��� >3 >3� 5� >3 5� 4� 5� 5� 5� 5�
Left� >3� >3� 5� >3� 5� � 4 5� 5� 5� 5�
�
Tone: Normal in all extremities�
Range of Motion: Passively within normal limits in all extremities except for shoulders not fully tested with restrictions from sternal precautions.
�
Lab Results�
��
12/07/24 03:13
12/07/24 03:13
WBC 15.9 10^3/uL (4.8-10.8) H 12/07/24 03:13
Hgb 10.0 g/dL (13.0-18.0) L 12/07/24 03:13
Hct 31.1 % (39.0-52.0) L 12/07/24 03:13
MCV 84.5 fL (80.0-94.0) 12/07/24 03:13
Plt Count 264 10^3/uL (130-400) 12/07/24 03:13
PT 18.1 Sec (11.4-14.6) H 12/03/24 13:56
INR 1.47 12/03/24 13:56
Sodium 135 mmol/L (135-145) 12/07/24 03:13
Potassium 4.3 mmol/L (3.5-5.1) 12/07/24 03:13
Chloride 105 mmol/L (98-107) 12/07/24 03:13
Carbon Dioxide 25 mmol/L (22-30) 12/07/24 03:13
BUN 20 mg/dl (9-20) 12/07/24 03:13
Creatinine 0.9 mg/dL (0.7-1.3) 12/07/24 03:13
eGFR > 60.00 12/07/24 03:13
Glucose 115 mg/dl (70-99) H 12/07/24 03:13
Hemoglobin A1c 5.7 % (4.0-5.6) H 11/30/24 03:26
Calcium 8.5 mg/dl (8.4-10.2) 12/07/24 03:13
Magnesium 2.4 mg/dl (1.6-2.3) H 12/07/24 03:13
Total Bilirubin 0.8 mg/dl (0.2-1.3) 12/01/24 05:30
Direct Bilirubin 0.2 mg/dl (0.0-0.4) 12/01/24 05:30
AST 47 U/L (17-59) 12/01/24 05:30
ALT 33 U/L (0-50) 12/01/24 05:30
Alkaline Phosphatase 68 U/L (38-126) 12/01/24 05:30
Total Protein 7.5 g/dl (6.3-8.2) 12/01/24 05:30
Albumin 4.5 g/dl (3.5-5.0) 12/01/24 05:30
Diagnostic Results: as per HPI�
�
Assessment�
74y/o R handed M H (HLD, obesity, osteoarthritis) with 11/29/2024 chest pain with STEMI s/p CABG x 4, complicated by perioperative stroke with left M1 nonocclusive thrombus, age-indeterminate left P2 occlusion, left carotid bulb 60 to 65% stenosis,
penumbra 38 cc, about 10 micro emboli treated with secondary prevention with aspirin, Plavix, and Lipitor 80 mg with ADL and ambulatory dysfunction.
Plan��
PM&R PT/OT to increase independence with ADLs, improve balance, coordination, endurance, strength, mobility, community reintegration, decreased burden of care on others and family education.�
�
STEMI S/P CABG x 4: Sternal precautions.� Aspirin 81 mg po daily, atorvastatin 80 mg po qPM, BP control.� Amiodarone 200 mg p.o. 3 times daily. Monitor incision, pain control.��
Coronary artery disease: Aspirin 81 mg p.o. daily, atorvastatin 80 mg p.o. every afternoon, metoprolol tartrate 25 mg p.o. every 12, metoprolol succinate 50 mg p.o. daily
CVA: Secondary prophylaxis with aspirin 81 mg p.o. daily, clopidogrel 75 mg p.o. daily, atorvastatin 80 mg p.o. every afternoon, and blood pressure control (SBP less than 180 and diastolic less than 100 to participate with therapy for ischemic
stroke). Continue to monitor neurologic status.��
HTN: continue medications, monitor closely�
HLD: Atorvastatin 80 mg p.o. every afternoon
Postoperative anemia: Continue to monitor.�
�
Psych: Monitor mood, medications as needed.��
Pain: acetaminophen as needed.� Oxycodone on hold with prior confusion
Bowel: Colace and Senna, PRN bisacodyl.�
Bladder: Time void, PVRs, PRN straight cath.�
GI Prophylaxis: Pantoprazole�
DVT Prophylaxis: Consider chemoprophylaxis
Pulmonary: Incentive spirometry�
Safety: Continue to reinforce assistance with all transfers.�
Code Status:� Full code
Dispo (date/plan/equipment needs): Home
Functional and Medical Goals: Modified Independent with ADL�s, ambulation, transfers�
Discharge destination: If patient has help from son at home can consider home with home health care. He is supervision with ambulation but needs mod assist with mobility given his sternal precautions. If he is not able to get help with his son he
would benefit from a custodial facility stay.
Attending Statement: I performed a history and examined the patient today.� I reviewed the care plan with therapy, nursing, and the resident.� I agree with the history and ROS above as modified.� The physical exam and plan documented reflects my
examination and plan.� A total of 60 minutes were spent with the patient preparing for the evaluation, obtaining history, performing examination and evaluation, counseling, data review, case management, care coordination, order selector, and EMR
documentation.��������
� � � � �
Will continue to follow patient.�
Thank you for allowing me to care for your patient. Please contact me with any questions or concerns.�
�
--- NOTE | 2024-12-07 12:09 | PTCARENOTE ---
pt tolerated PT/OT, family at bedside, updated
--- NOTE | 2024-12-07 13:09 | PTCARENOTE ---
cordis removed without incident.
[2024-12-07] MEDS: NSS IV (14:38)
--- NOTE | 2024-12-07 15:54 | PTOTSP ---
Speech Therapy Evaluation:
Given 'intermittent aphasia' and MRI revealing several scattered small foci of non-hemorrhagic acute/subacute infarcts in bilateral parieto-occipital lobes, L temporal lobe, and R cerebellar hemisphere, the Quick Aphasia Battery (QAB) Form 1 was
administered. Scores were as follows:
Word Comprehension: 10:00
Sentence Comprehension: 9.58
Word Findin.00
Grammatical Construction: 10.00
Speech Motor Programmin.00
Repetition: 10.00
Readin.00
QAB Overall: 9.79 - No aphasia
Impression: Pt earned an overall score of 9.79 on the Quick Aphasia Battery (QAB), indicative of no aphasia per parameters of this assessment. Observed mild reductions in word finding during conversation, however this did not appear to impact
overall ability to functionally communicate. Given score on BCAT with OT, VAMP PRESSER to follow for further assessment of cognition and tx as indicated. No further services warranted for language or swallowing.
[2024-12-07] MEDS: TYLENOL PO (16:43)
[2024-12-07] MEDS: LIPITOR 80 MG PO (17:15)
[2024-12-07] MEDS: REMOVE LIDOCAINE PATCH REMOVE (19:45)
--- NOTE | 2024-12-07 19:52 | PTCARENOTE ---
assumed care of pt from previous shift RN, pt sitting in chair at time of assessment, AAOx4, sinus rhythm on tele, VSS, + peripheral pulses, trace edema to bilateral lower extremities. Lungs diminished, pox 96% on RA, coughing and deep breathing
encouraged. +bs, voids spontaneously, adequate. all surgical sites intact. PIVx2 flush easily. Plan of care reviewed w the pt and questions encouraged. call bermudez within reach.
--- NOTE | 2024-12-07 23:00 | PTCARENOTE ---
report received from previous RN, walking rounds done. pt in bed, sleeping. VSS. NSR on monitor, HR 60s. + peripheral pulses, trace edema to bilateral LE's. bilateral breath sounds present. POX 96% on RA. IS encouraged. +BS. voids spontaneously,
adequate. PIV intact and patent. see worklist for full assessment, VS, and interventions.
[2024-12-08 00:22] VITALS: BP 115/53
[2024-12-08 04:55] VITALS: BP 161/65
--- NOTE | 2024-12-08 05:00 | PTCARENOTE ---
no changes in assessment, VSS. NSR 60s. POX 99% on room air. AM labs drawn and sent. pt sleeping between care.
[2024-12-08 05:13] LABS: Hematocrit 31.4 % (39.0-52.0); Hemoglobin 10.2 g/dL (13.0-18.0); Mean Corp Hgb Conc. 32.5 g/dL (33.0-37.0); Mean Corpuscular Volume 84.0 fL (80.0-94.0); Platelet Count 285 10^3/uL (130-400); Red Cell Dist. Width 14.8 % (11.5-14.5)
--- NOTE | 2024-12-08 05:36 | W.PN.CT ---
Today's Communication / Plan
-
Plan:
-No major issues overnight. Hemodynamically intact and neurologically intact
-Mental status has improved, alert and oriented x 3, no expressive aphasia noted on exam this AM, has good strength
-No bleed noted on MRI of brain 12/05, showed: several (approximately 10) scattered small foci of nonhemorrhagic acute/subacute infarcts including within the bilateral parieto-occipital lobes,
left temporal lobe and right cerebellar hemisphere
-ASA and Plavix resumed
-Avoid narcotics/sedatives
-Had approximately 10 hrs of a-fib with RVR on POD#2 int POD#3, none since, no OA for now per Dr. Orlando
-Temporary PW was cut 12/05 prior to MRI
-Cont. current meds (ASA, Plavix, Amiodarone, Lopressor, Lipitor)
-F/U 2-view cxr
-Encourage use of IS
-OOB into chair/Ambulate
-Physiatry to eveluate for possible [facility] placement, lives alone. Recommend SNF
-SNF vs Acute rehab placement
Assessment / Plan
-
Assessment:
-S/P Median sternotomy/ CABG x 4 (ROBB to LAD, GSV to D1, GSV to OM, GSV to distal RCA)/Endoscopic harvest/prep of RLE GSV/ELAA (45mm Atriclip), by Dr. Orlando, 12/03/24, pod#5
-MVCAD
-NSTEMI (peak trop 10.1)
-LVEF 68% per TTE 11/30/24
-HTN Urgency
-Class 1 Obesity (BMI 32.9)
-Prediabetes (A1C 5.7)
-Former tobacco use
-OA
-S/P hernia repair x 3
-S/P T&A
-Acute postop blood loss/Anemia (stable without transfusion)
-Acute postop atelectasis
-Acute postop hypovolemia with subsequent hypervolemia
-Acute postop transient expressive aphasia, CTA of head showed non-occlusive thrombus @ Left MCA. Head CT was negative
-Acute postop embolic stroke
-Acute postop a-fib with RVR
Discussed patient care with: Cardiology, Nursing, Respiratory Therapy, Pharmacy and Care Team
Subjective
Procedure
-S/P Median sternotomy/ CABG x 4 (ROBB to LAD, GSV to D1, GSV to OM, GSV to distal RCA)/Endoscopic harvest/prep of RLE GSV/ELAA (45mm Atriclip), by Dr. Orlando, 12/03/24,
-
Date of Service: December 08, 2024
pt c/o mild incisional pain, otherwise feels well
Objective Data
-
Lab Results
12/08/24 05:04
PT 18.1 Sec (11.4-14.6) H 12/03/24 13:56
INR 1.47 12/03/24 13:56
APTT 34.2 Sec (23.4-35.0) 12/03/24 13:56
Vital Signs
Vital Signs
Temp Pulse Resp BP Pulse Ox
98.6 F 68 18 161/65 99
12/08/24 04:55 12/08/24 05:00 12/08/24 04:55 12/08/24 04:55 12/08/24 04:55
CT Intake/Output/Weight
12/07/24 12/07/24 12/08/24
06:59 18:59 06:59
Intake Total 90 / 116.7 130 / 130
Output Total 625 / 825 200 / 200
Balance -535 / -708.3 -70 / -70
SaO2: 99 (RA)
Physical Exam
-
General: Awake, Oriented and AOx3
Cardiovascular: Regular rate & rhythm, No Murmurs, No Rub and No Gallop
Respiratory: Decreased Breath Sounds (at bases, otherwise clear)
Sternum: Stable
Incision: Clean, Dry, Intact and Dressing Intact
Extremities: Other (+trace edema)
Data Reviewed
-
Lab Results: Results Reviewed
Medications: Active Meds Reviewed
Chest X-Ray: Report Reviewed and Image Reviewed
ECG: Report Reviewed and Image Reviewed
[2024-12-08 05:40] LABS: Blood Urea Nitrogen 17 mg/dl (9-20); Calcium 8.3 mg/dl (8.4-10.2); Carbon Dioxide 23 mmol/L (22-30); Chloride 108 mmol/L (98-107); Estimated Creatinine Clearance 80 ml/min; Glucose 115 mg/dl (70-99); Magnesium 2.3 mg/dl (1.6-2.3); Potassium 4.2 mmol/L (3.5-5.1); Sodium 136 mmol/L (135-145); eGFR > 60.00
[2024-12-08 06:00] VITALS: BMI 32.6
--- NOTE | 2024-12-08 06:16 | DOWNTIME ---
There was a [employer] Retail Merchandiser Technician Downtime on 12/08/2024 from 0100 to 12/08/2024 at 0235. Downtime documentation of patient's care, including medication administrations, has been reconciled in the electronic record per guidelines. Refer to the
patient's paper chart under the miscellaneous tab to see printed paper medication records and downtime forms.
[2024-12-08] MEDS: TYLENOL PO (06:37)
--- NOTE | 2024-12-08 08:00 | PTCARENOTE ---
report received from previous RN, walking rounds done. oob in chair. VSS. NSR on monitor, HR 60s. + pulses, trace edema. POX 96% on RA. IS 750. +BS. BRP. PIV intact. will continue to monitor.
[2024-12-08 08:34] VITALS: BP 129/63
[2024-12-08] MEDS: PLAVIX 75 MG PO (08:55)
[2024-12-08] MEDS: TOPROL XL 50 MG PO (08:55)
[2024-12-08] MEDS: PROTONIX 40 MG PO (08:55)
[2024-12-08] MEDS: LOW STRENGTH ASPIRIN 81 MG PO (08:55)
[2024-12-08] MEDS: SENOKOT-S 1 TABLET PO (08:56)
[2024-12-08] MEDS: PACERONE 200 MG PO (08:56)
[2024-12-08] MEDS: NSS IV (08:57)
[2024-12-08] MEDS: LIDOCAINE 4% PATCH TOPICAL (08:57)
--- NOTE | 2024-12-08 11:40 | W.DCSUMMARY ---
Discharge Summary
Discharge Data
Date of Admission: 11/30/24
Date of Discharge: 12/08/24
-
Pending Results: No
Hospital Course
Primary care physician: Fariba Verduzco
Outpatient signal tower operator: none prior to admission
Inpatient consultants: [facility] Cardiology>DR. Asia Suazo
Procedures:
1. CABG x 4, left atrial appendage clip
Primary Diagnosis:
1. NSTEMI/triple vessel CAD
Secondary Diagnoses:
1. HTN Urgency
2. Class I Obesity (BMI 32.9)
5. OA
6. Hx of hernia repair
-Acute postop blood loss/Anemia (stable without transfusion)
-Acute postop atelectasis
-Acute postop hypovolemia with subsequent hypervolemia
-Acute postop left MCA embolic CVA with expressive aphasia
-Acute postop a-fib with RVR
HPI: 74-year-old male with a PMHx significant for dyslipidemia, obesity, and familial CAD presented to [facility] on 11/29/24 with complaints of progressive dyspnea on exertion and chest discomfort.
Hospital course: Troponin level (3.5>10.1) elevated and patient ruled-in for NSTEMI. TTE was obtained which showed normal EF, no regional wall motion abnormality, and no significant valvular heart disease. He underwent a left heart cath on
11/30/[address] Francisco which revealed 100% occlusion of RCA and disease of proximal to mid LAD involving the diagonal. Diagnostic workup reported normal carotids and chest CT scan. Patient was taken to the operating room on 12/03/2024 and
underwent CABG x 4 (ROBB to LAD, GSV to D1, GSV to OM, GSV to distal RCA) and ELAA (#45mm Atriclip) by Dr. Duc Orlando. For further details, please see operative note. Patient received no intraoperative blood products and returned to CVICU on
dobutamine for sinus bradycardia in the OR. This was discontinued on arrival to CVICU as patient maintained sinus rhythm. Patient was extubated the day of surgery and expressive aphasia was noted by nurse at 1840. Rapid response and stroke alert
was initiated. Patient was sent to CT scan no hemorrhage or mass effect was noted. CTA of head and neck reported left MCA M1 segment small focal filling defect consistent with a nonocclusive thrombus. Patient is not a candidate for thrombectomy
due to recent surgery. On postoperative day #1, mild expressive aphasia persisted but waxed and waned in severity. Speech therapy cleared patient for full diet. Patient was declined and insulin drip discontinued. Patient was seen by neurology
and continued on high-dose statin, aspirin, and Plavix. Patient had some confusion overnight into postoperative day #2 which resolved in the morning. Operative bipolar V wire was clipped prior to follow-up MRI of the brain which showed no
hemorrhagic CVA. Patient was diuresed. Patient did develop new atrial fibrillation lasting approximately 10 hours and this converted with amiodarone bolus and infusion. On postoperative day 3, patient maintained sinus rhythm and speech was
improving. However patient did poorly following complex sequential task with OT. Therefore physiatry was consulted for evaluation for acute rehab candidacy. On postoperative day #5, patient was accepted to [facility] for continued occupational
and speech therapy. Sternal precautions to be maintained for an additional 3 weeks. Acceptable for DVT prophylaxis if needed.
Home medication changes:
Atorvastatin 20 mg increased to 80 mg daily due to CVA
Stop ibuprofen
Discharge Plan
-
Patient Disposition: Acute Rehab Facility
Discharge Diagnosis/Procedures: CABG x 4, left atrial appendage clip (12/03/24)
Condition: Fair
Diet: Low Cholesterol and Low Sodium
Activity: No strenuous activity
Driving Restrictions: Not until seen by your Dr
Bathing Restrictions: OK to Shower
Other Services: Cardiac Rehab
Specialty Instructions: Weigh Daily- Call MD for wt gain/loss 3 lbs overnight/5 lbs in 1 week
Referrals:
[facility] [Other]
Referral Note:
[facility] [Outside]
Referral Note: Cardiac Rehab Orientation appointment is on Friday01/05/2025@ 10:00am.
The Cardiac Rehab gym is located on the first floor of the [facility].
Rubia Gandhi PA-C [Specified Professional Personl, Cardiology] - 01/18/27 10:20 am
Yamel Panchal MD [Active, Pulmonary Medicine] - in six weeks
Fariba Martinez MD [Family Provider, Family Practice] - in four to six weeks
Referral Note: Please make an appointment in four to six weeks.
Duc Orlando MD [Active, Cardiac Surgery] - 12/28/24 2:00 pm
Prescriptions:
New
clopidogrel 75 mg Tablet
75 mg PO DAILY Qty: 0 0RF
atorvastatin 80 mg Tablet
80 mg PO QPM Qty: 0 0RF
acetaminophen 325 mg Tablet
650 mg PO Q4HPRN PRN (Reason: mild pain,headache,temp >101F ) Qty: 0 0RF
amiodarone [Pacerone] 200 mg Tablet
200 mg PO BID Qty: 0 0RF
metoprolol succinate 50 mg Tablet Extended Release 24 Hr
50 mg PO DAILY Qty: 0 0RF
pantoprazole 40 mg Tablet,Delayed Release (Dr/Ec)
40 mg PO DAILY Qty: 0 0RF
aspirin 81 mg Tablet,Chewable
81 mg PO DAILY Qty: 0 0RF
Continued
omega 0-opj-blv-fish oil [Fish Oil] 1,000 mg (120 mg-180 mg) Capsule
2 cap PO HS
Discontinued
atorvastatin 20 mg Tablet
20 mg PO HS
ibuprofen 400 mg Tablet
400 mg PO HS
Discharge Orders:
Discharge Patient (As Directed); Ordered 12/08/24
Ordered By: Emmy Powell
Care Plan Goals
Care Plan Goals:
Problem: Readiness for enhanced knowledge related to diagnosis and treatment plan
Goal: Understand your diagnosis and treatment plan needs, including medications if applicable.
Instructions: Know your diagnosis, underlying causes and treatment plan options, including medications if applicable. Consult with your health care team to learn about your diagnosis and treatment plan, including medications if applicable.
Discharge Date and Time
Print Language: GREEK
--- NOTE | 2024-12-08 12:18 | CM ---
Chart reviewed. Patient is independent of ADLS, lives alone in a [address], elevator to get to the 2nd floor, 0 DME. After PT/OT/Speech evaluation patient with severe cognitive impairment who would benefit Acute Rehab. [facility] accepted the
patient. Plan is for the patient to go to [place].
[2024-12-08 12:22] VITALS: BP 177/72
[2024-12-08 14:14] VITALS: BP 156/84; BP 158/64; PULSE 70; PULSE 72; O2SAT 100
== END 2024-12-08 15:25 | DRG 233 ==
LOC: CVICU 01:39
PROVIDERS: Hospitalist; Nurse Practitioner; Physician Assistant Medical; ADMITTING PHYSICIAN Hospitalist; ATTENDING PHYSICIAN Thoracic Surgery (Cardiothoracic Vascular Surgery); CONSULT PHYSICIAN Internal Medicine; CONSULT PHYSICIAN Physical Medicine & Rehabilitation; CONSULT PHYSICIAN Psychiatry & Neurology Clinical Neurophysiology; EMERGENCY PHYSICIAN Emergency Medicine; FAMILY PHYSICIAN Family Medicine; OTHER PHYSICIAN Internal Medicine Interventional Cardiology
PROC: 02100ZC Bypass Coronary Artery, One Artery from Thoracic Artery, Open Approach (ICD-10-PCS; 2024-11-30)
PROC: 021209W Bypass Coronary Artery, Three Arteries from Aorta with Autologous Venous Tissue, Open Approach (ICD-10-PCS; 2024-11-30)
PROC: 06BP4ZZ Excision of Right Saphenous Vein, Percutaneous Endoscopic Approach (ICD-10-PCS; 2024-11-30)
PROC: 4A023N7 Measurement of Cardiac Sampling and Pressure, Left Heart, Percutaneous Approach (ICD-10-PCS; 2024-11-30)
PROC: 02L70CK Occlusion of Left Atrial Appendage with Extraluminal Device, Open Approach (ICD-10-PCS; 2024-11-30)
PROC: 5A1221Z Performance of Cardiac Output, Continuous (ICD-10-PCS; 2024-11-30)
PROC: B2111ZZ Fluoroscopy of Multiple Coronary Arteries using Low Osmolar Contrast (ICD-10-PCS; 2024-11-30)
PROC: B2151ZZ Fluoroscopy of Left Heart using Low Osmolar Contrast (ICD-10-PCS; 2024-11-30)
DX: I21.4 Non-ST elevation (NSTEMI) myocardial infarction (principal); I63.412 Cerebral infarction due to embolism of left middle cerebral artery; D62 Acute posthemorrhagic anemia; I97.810 Intraoperative cerebrovascular infarction during cardiac surgery; J98.11 Atelectasis; R47.01 Aphasia; I16.0 Hypertensive urgency; I25.10 Atherosclerotic heart disease of native coronary artery without angina pectoris; R73.03 Prediabetes; I10 Essential (primary) hypertension; E66.811 Obesity, class 1; E78.2 Mixed hyperlipidemia; G89.29 Other chronic pain; M54.50 Low back pain, unspecified; M19.90 Unspecified osteoarthritis, unspecified site; E86.1 Hypovolemia; I48.91 Unspecified atrial fibrillation; E87.70 Fluid overload, unspecified; Y83.2 Surgical operation with anastomosis, bypass or graft as the cause of abnormal reaction of the patient, or of later complication, without mention of misadventure at the time of the procedure; Z68.32 Body mass index [BMI] 32.0-32.9, adult; Z79.52 Long term (current) use of systemic steroids; Z79.899 Other long term (current) drug therapy; Z82.49 Family history of ischemic heart disease and other diseases of the circulatory system; Z87.891 Personal history of nicotine dependence
CPT/HCPCS: 0042T; 36600; 70450; 70496; 70498; 70551; 71045; 71046; 71250; 80048; 80053; 80061; 81003; 81015; 82248; 82330; 82565; 82805; 82810; 82947; 82962; 83036; 83735; 84132; 84302; 84484; 84520; 85014; 85018; 85025; 85027; 85049; 85610; 85730; 86803; 86850; 86900; 86901; 86920; 92507; 92523; 92526; 92610; 93005; 93306; 93458; 93880; 94002; 96374; 96376; 97116; 97129; 97163; 97167; 97530; 97535; 99152; 99153; 99291; C1713; P9045; Q9967

== ENCOUNTER → 2024-12-27 16:34 | Outpatient (REF) | payer MEDICARE, OTHER, SELFPAY ==
[2024-12-27 17:04] LABS: Hematocrit 35.9 % (39.0-52.0); Hemoglobin 11.1 g/dL (13.0-18.0); Mean Corp Hgb Conc. 30.9 g/dL (33.0-37.0); Mean Corpuscular Volume 83.3 fL (80.0-94.0); Platelet Count 349 10^3/uL (130-400); Red Cell Dist. Width 14.3 % (11.5-14.5)
[2024-12-27 17:12] LABS: Blood Urea Nitrogen 13 mg/dl (9-20); Calcium 9.8 mg/dl (8.4-10.2); Carbon Dioxide 26 mmol/L (22-30); Chloride 102 mmol/L (98-107); Glucose 80 mg/dl (70-99); Potassium 4.7 mmol/L (3.5-5.1); Sodium 139 mmol/L (135-145); eGFR > 60.00
== END ==
LOC: CLAB 16:34
PROVIDERS: ATTENDING PHYSICIAN Family Medicine
DX: I25.10 Atherosclerotic heart disease of native coronary artery without angina pectoris (principal); I48.91 Unspecified atrial fibrillation; I10 Essential (primary) hypertension
CPT/HCPCS: 36415; 80048; 85027

== ENCOUNTER 2025-01-03 18:19 | Inpatient (IN) | payer MEDICARE, OTHER, SELFPAY ==
[2025-01-03] VITALS (10 sets, daily range): BP systolic 103–146; BP diastolic 41–67; BMI 30.5
[2025-01-03 12:08] LABS: Hematocrit 31.9 % (39.0-52.0); Hemoglobin 10.1 g/dL (13.0-18.0); Mean Corp Hgb Conc. 31.7 g/dL (33.0-37.0); Mean Corpuscular Volume 77.4 fL (80.0-94.0); Nucleated Red Blood Cells % 0 % (-); Platelet Count 231 10^3/uL (130-400); Red Cell Dist. Width 14.5 % (11.5-14.5)
[2025-01-03 12:13] LABS: Urine Character Slightly Cloudy (Clear)
[2025-01-03 12:20] LABS: ALT (SGPT) 33 U/L (0-50); AST (SGOT) 38 U/L (17-59); Albumin 3.7 g/dl (3.5-5.0); Alkaline Phosphatase 93 U/L (38-126); Blood Urea Nitrogen 31 mg/dl (9-20); Calcium 8.6 mg/dl (8.4-10.2); Carbon Dioxide 20 mmol/L (22-30); Chloride 101 mmol/L (98-107); Glucose 118 mg/dl (70-99); Potassium 4.7 mmol/L (3.5-5.1); Sodium 130 mmol/L (135-145); Total Protein 6.7 g/dl (6.3-8.2); eGFR 26.14
[2025-01-03 12:28] LABS: Urine Squamous Cell 26-30 /LPF (Few)
[2025-01-03 12:32] LABS: Urine Urothelial Cell 0-2 /LPF (FEW); Urine White Cell 50-60 /HPF (0-5)
[2025-01-03] MEDS: NSS 1000 IV (14:14)
--- NOTE | 2025-01-03 14:59 | ED.GENMED ---
History of Present Illness
General
Chief Complaint: Change in Mental Status
Source: patient
Exam Limitations: none
Time Seen by Provider: 01/03/25 13:23
Nursing documentation reviewed up to this point in time: agreed with
History of Present Illness
History of Present Illness:
Patient is a 74 y.o male who presents to the emergency department for evaluation of change in mental status. Apparently patient appeared confused yesterday when his home nurse arrived including having difficulty using the TV remote as well as
having difficulty using the lock to the front door. He also was complaining of fever and shaking chills while at home yesterday. His visiting nurse did take him to an urgent care where he was negative for COVID and flu however appeared to have a
urinary tract infection and was started on antibiotic. Both patient and the visiting nurse today are unsure what the antibiotic was.
When the caregiver today arrived they noted that he appeared confused again having difficulty letting her into his apartment. He reports feeling very dehydrated and generally weak. He has not had any known fever today.
Patient denies any headache or neck pain. He denies any back or abdominal pain. No nausea/vomiting or diarrhea. He denies any urine symptoms dysuria or hematuria. No recent falls or head trauma.
Patient is not on any oral anticoagulation
Past History
Past History
ED Past Medical History: None and Hypercholesterolemia
ED Past Surgical History: Other (Hernia repair X 3)
Social History
Tobacco: Former smoker (Smoked a pipe)
Alcohol: Occasional
Drug: None
Personal:
Living: alone
Review of Systems
Review of Systems
Allergies reviewed?: Yes
All Other Systems: ROS reviewed and negative except as documented in HPI and ROS
Phy Exam
Physical Exam
Physical Exam:
Vitals: Patient's vital signs are stable. Afebrile
General: Patient is generally weak appearing. In no distress
Skin: Warm and dry, no rashes or lesions
Head: Normocephalic, atraumatic
Eyes: Sclera nonicteric.
Throat: Protecting airway
Neck: Normal ROM, no cervical spine tenderness, no meningismus
Cardiac: Regular rate and rhythm, no murmurs.
Pulm: Normal respiratory effort, no wheezes, rales, rhonchi heard on exam
Abdomen: Abdomen soft and nontender. No CVA tenderness
Extremities: No evidence of cyanosis or edema. 2+ palpable DP pulses bilaterally
Neuro: AAOx3. Fluid speech. No focal neurologic deficits.
Psychiatric: Normal affect.
Course
Orders/Labs/Results
Orders:
Orders
01/03/25 11:50
Complete Blood Count/With Diff Urgent
Comprehensive Metabolic Panel Urgent
Lactic Acid Urgent
Urinalysis Reflex To Culture Urgent
Date Specimen was Collected: 01/03/25
Time Specimen was Collected: 11:40
Urine Microscopic Reflex Cult Urgent
Blood Culture Urgent
[facility] Source: Blood/Venous
Specimen Description:
Date Specimen was Collected: 01/03/25
Time Specimen was Collected: 11:40
Urine Culture Urgent
[facility] Source: U
Specimen Description:
Date Specimen was Collected: 01/03/25
Time Specimen was Collected: 11:40
01/03/25 11:53
Blood Culture Urgent
[facility] Source: Blood/Venous
Specimen Description:
01/03/25 13:46
Abdomen/Pelvis wo Contrast CT [CT Abd/pelvis Wo Iv Cont] Urgent
Comment:
Reason For Exam: fever, UTI, YAJAIRA
CT Head W/o Iv Contrast Urgent
Comment:
Reason For Exam: AMS
0.9% Sodium Chloride 1000 ml [Nss] 1,000 ml IV BOLUS
01/03/25 Dinner
Cholesterol Lowering
At Your Request: Full Participation
Cholesterol Lowering: Sodium, 2 Gram
01/03/25 15:35
Cefepime HCl [Maxipime] 2,000 mg IV NOW STA
01/03/25 17:27
Admit/Transfer Patient As Directed
Co-Sign Provider:
Level of Care: Inpatient admission
Assign to:: Medical/Surgical
Physician / Group: Ana Cristina Lechuga
Diagnosis: acute kidney injury, Pyelonephritis
Reason for Hospitalization: acute kidney injury, Pyelonephritis
Expected length of stay greater than two midnights?: Yes
ELOS- Estimated Length of Stay in days: 3
I certify the patient meets the requirements for IP care: Yes
01/03/25 17:28
PRN Pain Medication Management As Directed
May give lesser potent ordered pain med per pt: Yes
preference::
Protocol:: Medication orders for pain may be administered in a
manner that supports deferring to patient preference
when the pt is:
- Requesting an ordered lesser potent pain medication.
Least to most potent pain medications are defined
as: acetaminophen < NSAID < tramadol < opioids
(morphine, oxycodone, hydromorphone).
- Requesting a lesser dose of the same medication IF
ORDERED.
- Requesting a less intrusive route of administration
if both routes are prescribed by the provider (PO <
IV).
01/03/25 17:30
Code Status As Directed
Resuscitation Status: Full Code
01/03/25 19:24
0.9% Sodium Chloride 500 ml [Nss] 500 ml IV 60 mls/hr
Acetaminophen [Tylenol] 650 mg PO Q4HPRN PRN mild pain,SINGH,fever>100.4F mild pain,SINGH,fever>100.4F
Atorvastatin [Lipitor] 80 mg PO QPM
01/03/25 19:24
Activity As Directed
Activity Level: As Tolerated
Bladder Scan As Directed
Follow Bladder Retention/Intermittent Cath Algorithm?: Yes
PRN if no void in __ hours: 6
Frequency: Per Retention Algorithm
If Bladder Scan Result >: 400
then:: Straight cath
Straight Cath As Directed
Frequency: Per Retention Algorithm
Additional Instructions: straight cath as needed per acute urinary retention algorithm for 24 hrs
Additional Instructions: for bladder scan greater than 400 mL
Vital Signs As Directed
Frequency: Per unit guidelines
Weight As Directed
Frequency: Once
Comment: on admission
Pt Eval And Treat Routine
Activity Level: As Tolerated
DX Deep Vein Thrombosis Video Routine
01/03/25 20:00
Amiodarone [Pacerone] 200 mg PO BID
Docusate Sodium [Colace] 100 mg PO BID
01/04/25 00:00
Heparin 5,000 units SC Q8
01/04/25 06:00
Basic Metabolic Panel IN AM
Complete Blood Count/No Diff IN AM
Cefepime HCl [Maxipime] 1,000 mg IV Q12H
01/04/25 08:00
Aspirin Chewable [Low Strength Aspirin] 81 mg PO DAILY
Clopidogrel Bisulfate [Plavix] 75 mg PO DAILY
Metoprolol Xl [Toprol Xl] 50 mg PO DAILY
Pantoprazole [Protonix] 40 mg PO DAILY
Sennosides [Senokot] 17.2 mg PO DAILY
Abnormal Lab Results
01/03/25
11:50
WBC 14.2 H 10^3/uL
(4.8-10.8)
RBC 4.12 L 10^6/uL
(4.70-6.10)
Hgb 10.1 L g/dL
(13.0-18.0)
Hct 31.9 L %
(39.0-52.0)
MCV 77.4 L fL
(80.0-94.0)
MCH 24.5 L pg
(27.0-31.0)
MCHC 31.7 L g/dL
(33.0-37.0)
MPV 11.8 H fL
(7.4-10.4)
Abs Immat Gran (auto) 0.1 H 10^3/uL
(0-0.05)
Absolute Neuts (auto) 12.0 H 10^3/uL
(1.4-6.5)
Absolute Lymphs (auto) 0.8 L 10^3/uL
(1.2-3.4)
Absolute Monos (auto) 1.3 H 10^3/uL
(0.1-0.6)
Neutrophils % 84.6 H %
(42.2-75.2)
Lymphocytes % 5.9 L %
(20.5-51.1)
Sodium 130 L mmol/L
(135-145)
Carbon Dioxide 20 L mmol/L
(22-30)
BUN 31 H mg/dl
(9-20)
Creatinine 2.5 H mg/dL
(0.7-1.3)
Glucose 118 H mg/dl
(70-99)
Ur Occult Blood Reflex 3+ A
(Negative)
Leukocyte Esterase Rfl 2+ A
(Negative)
Urine RBC 7-10 A /HPF
(0-2)
Urine WBC (Reflex) 50-60 A /HPF
(0-5)
Urine Bacteria (Reflex) Moderate A
(Negative)
Urine Albumin (Reflex) 3+ A
(Neg - Trace)
01/03/25 11:50
01/03/25 11:50
Vital Signs
Initial and Last Documented VS:
Initial Vital Signs
Temp Pulse Resp BP Pulse Ox
99.2 F 67 16 103/41 99
01/03/25 11:33 01/03/25 11:33 01/03/25 11:33 01/03/25 11:33 01/03/25 11:33
Last Documented Vital Signs
Temp Pulse Resp BP Pulse Ox
100.2 F 73 14 139/57 96
01/03/25 23:16 01/03/25 23:16 01/03/25 23:16 01/03/25 23:16 01/03/25 23:16
MDM/Problems Addressed
Differential Diagnosis Includes:
Not limited to: Viral illness, UTI, pyelonephritis, renal colic, urosepsis, intracerebral hemorrhage, acute dehydration, metabolic encephalopathy,
MDM/Problems Addressed:
74-year-old male presenting with AMS in setting of newly diagnosed UTI. Patient with fever at home yesterday and UA indicating UTI at urgent care yesterday and started in abx. Persistent change in mental status today. No fever, vomiting,
abdominal/flank pain. Vital signs and physical exam as above. Differential includes UTI, ascending UTI including pyelonephritis, viral illness, acute dehydration, intracerebral hemorrhage, etc. Labs were sent prior to my evaluation significant for
leukocytosis of 14.2 with stable anemia with hemoglobin of 10.1. Chemistry reveals hyponatremia as well as acute renal failure with creatinine of 2.5 which is increased from baseline around 1.2 about one week ago. UA appears infected with 50�60
WBC�s, 2+ leukocyte esterace as well as 7�10 RBCs.
Given suspected UTI - symptoms possibly secondary to complicated UTI. Given YAJAIRA - will check CT scan abdomen/pelvis without contrast to rule out obstructing kidney stone and CT head. Patient will require admission for further management. Will give
IV fluids and cefepime pending CT scans.
Update: Head CT without acute abnormalities. CT abdomen/pelvis with no evidence of obstructing stones however does note stranding consistent with bilateral pyelonephritis. Will admit for metabolic encephalopathy secondary to bilateral pyleo. Patient
received cefepime in ED. Accepted to hospitalist service in stable condition. Discussed with patient�s family and patient who are comfortable with plan.
Chronic conditions affecting care:
N/A
Acute Exacerbation and/or Progression of Chronic Illness:
N/A
*Radiology
Radiology exam reviewed: radiology read reviewed
*Pulse Oximetry
SaO2: 98
Oxygen Mode of Delivery: Room air
Patient hypoxic: no
*EKG
Interpreted by ED Provider?: NA
*All Around Gear Machine Operator Interpretation
Rate: All Around Gear Machine Operator- N/A
*Critical Care Note
Total Time (30-74mins, 75-104mins- exclusive of procedures): Not Applicable
Patient Management
Discussion with other providers: Hospitalist
Escalation/DeEscalation of care consider admission/obs:
Admit for IV antibiotics, further management of suspected pyelonephritis and metabolic encephalopathy
ED Attending Note
-
Portions of this chart may have been created with voice recognition software.� Occasional wrong word or��sound alike� substitutions may have occurred due to the inherent limitations of voice recognition software.
Discharge Plan
Departure
Patient Disposition: Admit
Date of Disposition: 01/03/25
Time of Disposition: 16:40
Presentation/result/management discussed w/ accepting MD/DO: Hospitalist
Discharge Problem:
Pyelonephritis, YAJAIRA (acute kidney injury)
Interventions
Interventions:
*Risk Screen - Suicide Last Done: 01/03/25 11:36
*General Assessment Last Done: 01/03/25 11:36
*Neglect/Abuse Screening Last Done: 01/03/25 11:36
*ED- Fall Risk Assessment Last Done: 01/03/25 11:33
*ED COVID-19 Vaccine History Last Done: 01/03/25 11:33
*Nursing Disposition Last Done: 01/03/25 19:47
ED- Neurological Assessment Last Done: 01/03/25 11:37
ED Swallowing Screen Last Done: 01/03/25 14:26
Discharge Date and Time
Discharge Date/Time: 01/03/25 19:49
[2025-01-03] MEDS: MAXIPIME 2000 MG IV (15:50)
--- NOTE | 2025-01-03 16:48 | HPS.HSE ---
Family Physician
-
Family Physician: Fariba Martinez MD
Chief Complaint
-
Change in mental status
History of Present Illness
Patient is a 74-year-old male with past medical history significant for dyslipidemia, CAD and paroxysmal atrial fibrillation who presented to [facility] ED for evaluation of change in mental status. Patient poor historian, is AAO at assessment and reports
coming in for rigors. Patient states he was seen in Urgent Care on Friday and prescribed an antibiotic but does not recall which one for suspected UTI, was brought here today for rigors and dehydration. EMS states that staff at [facility]
indicated that patient was having slurred speech and weakness since Friday morning, was seen in Urgent care Friday and returned to [facility] and today (Friday) he was unable to find his way out of his apartment so called EMS for assistance. Patient
reports having the 'shakes so bad he could not write,' poor appeitie and weakness. He denies any fevers, cough, chest pain, nausea, vomiting, consitpaiton, diarrhea or urinary symptoms.
Medical History
Past Medical History
Past Medical History: Reports Other
Additional Past Medical History:
obesity
dyslipidemia
CAD
paroxysmal atrial fibrillation
Past Surgical History: Reports Other
Additional Past Surgical History:
T&A
Hernia Repair
CABG x4
Social History
Tobacco: Non-smoker
Alcohol: Occasional
Drug: None
Living: Alone
Employment: Retired
Family History
Family History: Not pertinent
Allergies / Home Medications
Allergies reflects when Allergies were last updated in [facility].
Home Medications with original date entered in [facility]
Allergy/Medication List:
Allergies
Allergy/AdvReac Type Severity Reaction Status Date / Time
No Known Allergies Allergy Verified 11/29/24 22:36
Home Medications
aspirin 81 mg chewable tablet 81 mg PO DAILY Blood clot prevention/tx #0 tabs 12/08/24
acetaminophen 325 mg tablet 650 mg (2 x 325 mg) PO Q4HPRN PRN mild pain,headache, #0 tabs 12/14/24
amiodarone 200 mg tablet (Pacerone) 200 mg PO BID Arrhythmia 30 days #60 tabs 12/14/24
atorvastatin 80 mg tablet 80 mg PO QPM high cholesterol s/p CABG 30 days #30 tabs 12/14/24
clopidogrel 75 mg tablet 75 mg PO DAILY cva, heart 30 days #30 tabs 12/14/24
docusate sodium 100 mg capsule 100 mg PO BID Constipation 30 days #60 caps 12/14/24
losartan 25 mg tablet 25 mg PO DAILY@2000 Blood pressure 30 days #30 tabs 12/14/24
metoprolol succinate 50 mg tablet,extended release 24 hr 50 mg PO DAILY Heart disease/condition 30 days #30 tabs 12/14/24
pantoprazole 40 mg tablet,delayed release 40 mg PO DAILY GI prophylaxis while on Plavix 30 days #30 tabs 12/14/24
sennosides 8.6 mg tablet (Lissy-mt) 17.2 mg (2 x 8.6 mg) PO DAILY Constipation 30 days #60 tabs 12/14/24
Review of Systems
-
History Source: Patient
Constitutional: Reports Weight Loss (25 pounds in 1 month ) and Chills; Denies Fever
EENT: Denies Sore Throat
Respiratory: Denies Cough or Trouble Breathing
Cardiac: Denies Chest Pain, Diaphoresis, Palpitations or Syncope
Abdomen/GI: Reports Anorexia (poor appetite ); Denies Abdominal Pain, Nausea, Vomiting or Diarrhea
: Denies Dysuria, Frequency or Urgency
Musculoskeletal: Denies Joint Swelling
Skin: Denies Rash
Neurological: Reports Weakness; Denies Dizzy, Headache or Numbness
Endocrine: Denies Polyuria or Polydipsia
Physical Exam
Vital Signs
Vital Signs
Temp Pulse Resp BP Pulse Ox
99.2 F 72 16 146/60 97
01/03/25 11:33 01/03/25 16:00 01/03/25 16:04 01/03/25 16:00 01/03/25 16:04
Physical Exam
General: No Apparent Distress, Comfortable and Conversant
HEENT: NormoCephalic, Moist mucous membranes and Atraumatic
Respiratory: Clear and Non Labored Respirations
Cardiac: S1/S2 and Regular Rhythm; No Murmur, Rub or Gallop
Breast: Deferred by me
GI: Soft, Non Tender, Non Distended and Normal Bowel Sounds
Rectal: Deferred by Provider
Genito-urinary: Deferred by me
Musculoskeletal: No Clubbing, No Cyanosis and No Edema
Skin: Warm; No IV/Catheter Site
Neuro: Awake, Alert, AO x 3 and Nonfocal/grossly intact
Hematologic/Lymphatic: No Lymphadenopathy
Psych: Calm
Laboratory Results
-
01/03/25 11:50
01/03/25 11:50
Laboratory Results
Lactic Acid 1.2 mmol/L (0.7-2.0) 01/03/25 11:50
Total Bilirubin 0.9 mg/dl (0.2-1.3) 01/03/25 11:50
AST 38 U/L (17-59) 01/03/25 11:50
ALT 33 U/L (0-50) 01/03/25 11:50
Alkaline Phosphatase 93 U/L (38-126) 01/03/25 11:50
Data Reviewed
-
CT Scan: Report Reviewed by me (Abd/Pel: Bilateral nephrolithiasis. Bilateral perinephric fat stranding, nonspecific. In the appropriate clinical setting, this could reflect pyelonephritis. Limited on this noncontrast CT.; Head: No acute
intracranial abnormality. Chronic senescent changes. Small acute infarcts on the recent brai)
Medical Tests (Nuc Med, Echo, EKG etc): Report Reviewed by me (EKG: SINUS RHYTHM WITH PREMATURE ATRIAL COMPLEXES NONSPECIFIC ST AND T WAVE ABNORMALITY)
Lab Data: Labs Reviewed by me (WBC 14.2, Neut 84.6, Na+ 130, HCO3 20, BUN 31, Creat 2.5, eGFR 26.14)
Impression/Plan
-
IMPRESSION/PLAN:
#change in mental status likely 2/2 pyelonephritis
WBC 14.2, Neut 84.6, Na+ 130, HCO3 20
UA: indicative of UTI
Urine Cx: pending
Blood Cx: pending
EKG: SINUS RHYTHM WITH PREMATURE ATRIAL COMPLEXES
NONSPECIFIC ST AND T WAVE ABNORMALITY
Head CT: No acute intracranial abnormality.
Chronic senescent changes. Small acute infarcts on the recent brain MRI from 12/05/2024 are less well seen by CT.
Abd/Pel CT: Bilateral nephrolithiasis.
Bilateral perinephric fat stranding, nonspecific. In the appropriate clinical setting, this could reflect pyelonephritis. Limited on this noncontrast CT.
- Admit to med/surg
- IVF NSS 60cc/hr
- IV cefepime
- supportive care
- Consult PT
#acute kidney injury
BUN 31, Creat 2.5, eGFR 26.14
- IVF NSS 60cc/hr
- monitor BMP
#dyslipidemia
- continue atorvastatin
#CAD
s/p CABG
- continue aspirin, clopidogrel and
#paroxysmal atrial fibrillation
- continue amiodarone and metoprolol
Code status: full code
DVT prophylaxis: heparin sq
--- NOTE | 2025-01-03 17:37 | W.PN.UPDATE ---
Update Note
Progress Note Update
HPI: 74-year-old male with past medical history significant for dyslipidemia, CAD s/p CABG, paroxysmal atrial fibrillation; who presented to for evaluation of change in mental status (he apparently was unable to find his way out of his apartment
so called EMS for assistance).
Patient states he was seen at Urgent Care on Friday and prescribed an antibiotic but does not recall which one for suspected UTI. He was brought here today for rigors and dehydration.
A/P:
# Acute metabolic encephalopathy/change in mental status likely 2/[address] AP showed bilateral perinephric fat stranding reflect pyelonephritis.
Follow urine culture, follow blood culture
Continue cefepime
PT alexa
# Acute kidney injury
SCr 2.5 from baseline 1.2
Continue gentle IV fluid NSS 60cc/hr
monitor BMP
Bladder scan and retention protocol
# CAD s/p CABG
# Hyperlipidemia
continue aspirin, clopidogrel
continue atorvastatin
# paroxysmal atrial fibrillation
continue amiodarone
Cont metoprolol with hold parameter
Code status: full code
DVT prophylaxis: heparin sq
[2025-01-03] MEDS: COLACE 100 MG PO (20:40)
[2025-01-03] MEDS: NSS 500 IV (20:40)
[2025-01-03] MEDS: LIPITOR 80 MG PO (20:40)
[2025-01-03] MEDS: PACERONE 200 MG PO (20:40)
[2025-01-03] MEDS: HEPARIN 5000 UNITS SC (23:29)
--- NOTE | 2025-01-03 23:34 | PTCARENOTE ---
Pt. arrived to unit at change of shift from ED via stretcher. Pt. pulled over from stretcher to bed in room 339-2 on . Pt. AAOx3 and able to make needs known. [place]. Able to answer all admission questions. Tele placed d/t protocol for
amiodarone. Oriented to unit. Call bermudez within reach. Plan of care ongoing.
[2025-01-04] VITALS (9 sets, daily range): BP systolic 109–149; BP diastolic 51–65; PULSE 65–68; O2SAT 98–99; BMI 30.5
[2025-01-04] MEDS: MAXIPIME 1000 MG IV ×2 (05:47→17:25)
[2025-01-04] MEDS: STERILE WATER FOR INJECTION 10 ML IV ×2 (05:47→17:25)
[2025-01-04 08:47] LABS: Hematocrit 31.2 % (39.0-52.0); Hemoglobin 9.9 g/dL (13.0-18.0); Mean Corp Hgb Conc. 31.7 g/dL (33.0-37.0); Mean Corpuscular Volume 80.2 fL (80.0-94.0); Platelet Count 211 10^3/uL (130-400); Red Cell Dist. Width 14.7 % (11.5-14.5)
[2025-01-04] MEDS: SENOKOT 17.2 MG PO (08:50)
[2025-01-04] MEDS: COLACE 100 MG PO ×2 (08:50→19:47)
[2025-01-04] MEDS: LOW STRENGTH ASPIRIN 81 MG PO (08:50)
[2025-01-04] MEDS: PLAVIX 75 MG PO (08:50)
[2025-01-04] MEDS: PROTONIX 40 MG PO (08:50)
[2025-01-04] MEDS: HEPARIN 5000 UNITS SC ×3 (08:51→23:45)
[2025-01-04] MEDS: PACERONE 200 MG PO ×2 (08:51→19:47)
[2025-01-04] MEDS: TOPROL XL 50 MG PO (08:53)
[2025-01-04 09:23] LABS: Blood Urea Nitrogen 28 mg/dl (9-20); Calcium 8.3 mg/dl (8.4-10.2); Carbon Dioxide 21 mmol/L (22-30); Chloride 105 mmol/L (98-107); Estimated Creatinine Clearance 37 ml/min; Glucose 105 mg/dl (70-99); Potassium 4.5 mmol/L (3.5-5.1); Sodium 132 mmol/L (135-145); eGFR 36.33
--- NOTE | 2025-01-04 10:29 | VNURNOTE ---
Chart reviewed. Patient is current with [facility]. Will continue to follow hospital course and DC plans.
--- NOTE | 2025-01-04 11:14 | W.PN.HOSP.TC ---
Today's Communication/Plan
-
see A/P
Assessment / Plan
Assessment / Plan
HPI: 74-year-old male with past medical history significant for dyslipidemia, CAD s/p CABG, paroxysmal atrial fibrillation; who presented to for evaluation of change in mental status (he apparently was unable to find his way out of his apartment
so called EMS for assistance).
Patient states he was seen at Urgent Care on Friday and prescribed an antibiotic but does not recall which one for suspected UTI. He was brought here today for rigors and dehydration.
A/P:
# Acute metabolic encephalopathy/change in mental status, due to sepsis POA with BL pyelonephritis
CT AP showed bilateral perinephric fat stranding reflect pyelonephritis.
Admission blood cultures growing E. coli, follow sensitivity
Check repeat blood culture
Follow urine culture
Continue cefepime
PT OT eval
# Acute kidney injury
SCr 2.5 -> 1.9, from baseline 1.2
Continue gentle IV fluid NSS 60cc/hr
monitor BMP
Cont bladder scan and retention protocol
# CAD s/p CABG
# Hyperlipidemia
continue aspirin, clopidogrel
continue atorvastatin
# paroxysmal atrial fibrillation
continue amiodarone
Cont metoprolol with hold parameter
# Mild hyponatremia
Code status: full code
DVT prophylaxis: heparin sq
DW RN
DW PT
total time 51 min
Anticipated Discharge: > 48 hours
Subjective/Interval History
-
Date of Service: January 04, 2025
Objective Data
-
Labs:
Laboratory Results
01/04/25
08:13
WBC 9.3
Hgb 9.9 L
Hct 31.2 L
Plt Count 211
Sodium 132 L
Potassium 4.5
Chloride 105
Carbon Dioxide 21 L
BUN 28 H
Creatinine 1.9 H
Glucose 105 H
Calcium 8.3 L
Vital Signs:
Vital Signs
Temp Pulse Resp BP Pulse Ox
37.0 C 75 20 143/63 96
01/04/25 08:55 01/04/25 08:55 01/04/25 08:55 01/04/25 08:55 01/04/25 08:55
I&O
01/03/25 01/04/25 01/05/25
06:59 06:59 06:59
Intake Total 480 / 480
Output Total 550 / 550
Balance -70 / -70
Review of Systems
-
History Source: Patient
All other systems: Reviewed and negative
Physical Exam
-
General: Well Developed, Well Nourished, No Apparent Distress, Comfortable and Conversant; Negative Respiratory Distress
HEENT: Normocephalic, Atraumatic, Nose Appears Normal and Ears Appear Normal; Negative Oxygen
Respiratory: Clear to Auscultation and Non Labored Respirations; Negative Accessory Resp Muscle Use
Cardiac: Regular Rhythm and S1/S2
GI: Soft, Nontender, Nondistended and Normal Bowel Sounds
Skin: Warm and Dry
Neuro: Awake and Alert
Psych: Calm and Intact Judgement/Insight (somewhat)
Data Reviewed
-
Labs: Labs Reviewed by me
[2025-01-04 11:58] LABS: Hepatitis C Antibody Negative (Negative)
[2025-01-04] MEDS: NSS 1000 IV (12:19)
[2025-01-04] MEDS: LIPITOR 80 MG PO (17:25)
--- NOTE | 2025-01-05 02:44 | DOWNTIME ---
There was a Percolate Client Compressor House Operator Downtime on 01/05/2025 from 0100 to 01/05/2025 at 0215. Downtime documentation of patient's care, including medication administrations, has been reconciled in the electronic record per guidelines. Refer to the
patient's paper chart under the miscellaneous tab to see printed paper medication records and downtime forms.
[2025-01-05 03:15] VITALS: BP 145/69
[2025-01-05] MEDS: NSS 1000 IV (04:55)
[2025-01-05 05:33] LABS: Hematocrit 30.7 % (39.0-52.0); Hemoglobin 9.8 g/dL (13.0-18.0); Mean Corp Hgb Conc. 31.9 g/dL (33.0-37.0); Mean Corpuscular Volume 78.9 fL (80.0-94.0); Platelet Count 195 10^3/uL (130-400); Red Cell Dist. Width 14.7 % (11.5-14.5)
[2025-01-05] MEDS: MAXIPIME 1000 MG IV ×2 (05:44→17:22)
[2025-01-05] MEDS: STERILE WATER FOR INJECTION 10 ML IV ×2 (05:45→17:22)
[2025-01-05 05:58] LABS: Blood Urea Nitrogen 22 mg/dl (9-20); Calcium 8.1 mg/dl (8.4-10.2); Carbon Dioxide 21 mmol/L (22-30); Chloride 107 mmol/L (98-107); Estimated Creatinine Clearance 47 ml/min; Glucose 105 mg/dl (70-99); Magnesium 2.4 mg/dl (1.6-2.3); Potassium 4.4 mmol/L (3.5-5.1); Sodium 133 mmol/L (135-145); eGFR 48.25
[2025-01-05 07:19] VITALS: BP 141/65
[2025-01-05] MEDS: PACERONE 200 MG PO ×2 (07:51→20:49)
[2025-01-05] MEDS: PLAVIX 75 MG PO (07:52)
[2025-01-05] MEDS: PROTONIX 40 MG PO (07:52)
[2025-01-05] MEDS: TOPROL XL 50 MG PO (07:53)
[2025-01-05] MEDS: LOW STRENGTH ASPIRIN 81 MG PO (07:53)
[2025-01-05] MEDS: HEPARIN 5000 UNITS SC ×3 (07:54→23:08)
[2025-01-05] MEDS: COLACE 100 MG PO ×2 (07:56→20:48)
[2025-01-05] MEDS: SENOKOT 17.2 MG PO (07:56)
[2025-01-05 11:08] VITALS: BP 138/68
--- NOTE | 2025-01-05 11:20 | W.PN.HOSP.TC ---
Today's Communication/Plan
-
see AP
Assessment / Plan
Assessment / Plan
HPI: 74-year-old male with past medical history significant for dyslipidemia, CAD s/p CABG, paroxysmal atrial fibrillation; who presented to for evaluation of change in mental status (he apparently was unable to find his way out of his apartment
so called EMS for assistance).
Patient states he was seen at [facility]gent Care on Friday and prescribed an antibiotic but does not recall which one for suspected UTI. He was brought here today for rigors and dehydration.
A/P:
# Acute metabolic encephalopathy/change in mental status, due to sepsis POA with BL pyelonephritis
CT AP showed bilateral perinephric fat stranding reflect pyelonephritis.
Admission blood cultures growing E. coli, follow sensitivity
Urine culture negative, repeat blood culture negative
Continue cefepime
PT OT recc HH
# Acute kidney injury
SCr 2.5 -> 1.5, from baseline 1.2
Observe off additional IVF
monitor BMP
Cont bladder scan and retention protocol
# Dysthymia
pt requesting psych eval for feeling depressed. He denies to suicide/homicide ideation
Clinically pt does appear dysthymic,
Psych eval placed
# CAD s/p CABG
# Hyperlipidemia
continue aspirin, clopidogrel
continue atorvastatin
# paroxysmal atrial fibrillation
continue amiodarone
Cont metoprolol with hold parameter
# Mild hyponatremia
Code status: full code
DVT prophylaxis: heparin sq
Dispo: HH per PT OT
DW RN
Anticipated Discharge: 24 - 48 hours
Subjective/Interval History
-
Date of Service: January 05, 2025
Objective Data
-
Labs:
Laboratory Results
01/05/25
05:07
WBC 6.9
Hgb 9.8 L
Hct 30.7 L
Plt Count 195
Sodium 133 L
Potassium 4.4
Chloride 107
Carbon Dioxide 21 L
BUN 22 H
Creatinine 1.5 H
Glucose 105 H
Calcium 8.1 L
Vital Signs:
Vital Signs
Temp Pulse Resp BP Pulse Ox
36.6 C 66 17 138/68 99
01/05/25 11:08 01/05/25 11:08 01/05/25 11:08 01/05/25 11:08 01/05/25 11:08
I&O
01/04/25 01/05/25 01/06/25
06:59 06:59 06:59
Intake Total 480 / 480 500 / 500
Output Total 550 / 550 150 / 150 450 / 450
Balance -70 / -70 350 / 350 -450 / -450
Review of Systems
-
History Source: Patient
All other systems: Reviewed and negative
Psych: Reports Depressed
Physical Exam
-
General: Well Developed, Well Nourished, No Apparent Distress, Comfortable and Conversant; Negative Respiratory Distress
HEENT: Normocephalic, Atraumatic, Nose Appears Normal and Ears Appear Normal; Negative Oxygen
Respiratory: Clear to Auscultation and Non Labored Respirations; Negative Accessory Resp Muscle Use
Cardiac: Regular Rhythm and S1/S2
GI: Soft, Nontender, Nondistended and Normal Bowel Sounds
Skin: Warm and Dry
Neuro: Awake and Alert
Psych: Calm and Intact Judgement/Insight (somewhat)
Data Reviewed
-
Labs: Labs Reviewed by me
[2025-01-05 14:54] VITALS: BP 137/66
[2025-01-05] MEDS: LIPITOR 80 MG PO (17:22)
[2025-01-05 19:00] VITALS: BP 152/61
--- NOTE | 2025-01-05 21:58 | CS.PSYCHR ---
Addendum entered and electronically signed by Douglas Arriola MD 01/05/25 22:47:
would check TSH, pt on amiodarone
Original Note:
Consult Summary - Psychiatry
-
pt seen in consultation for complaint of depression
74 yo man admitted due to altered mental status, was unable to figure out how to get out of his home. Brought to ED, found to have likely pyelomephritis, admitted.
Had been in usual state of health until six weeks ago when he developed chest pain found to have acute FL. Had urgent CABG, did well though has had complications of embolic CVA. Has been demoralized about slow and incomplete recovery.
No prior psychiatric history. State he has had a good life, though had hard time with 's in 2021. She had been head of OT here at [place], developed endometrial cancer, survived for approx 4 years but became weary of increasingly
debillitating treatments; entered hospice in fall, the following spring (beginning of COVID pandemic.) Lives alone. Two sons one in [place] one in [facility]. In touch but not inclined to live together. Born and raised in [place],
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 Music [employer], has approx [phone] CDs in his collection. Plays martin but has not been with group for 10 years.
Has been losing weight, nothing tastes good to him. sleeps off and on (especially here with noise.) Enjoys his music.
On exam pt lying in bed, wakens quickly to light touch. Pleasant and cooperative, expresses frutration about still being sick so long, wants to go home. oriented x 3, affect throgh full range, mood ok. No suicidal ideation, no cognitive impairment,
no signs of psychosis
Impression: Adjustment disorder with mixed features
Pt not interested in antidepressant medication at this time but will consider it. interested in defeloping strategies to cope with greater limits in his life.
[2025-01-05 23:00] VITALS: BP 138/60
[2025-01-06 02:50] VITALS: BP 147/63
[2025-01-06 05:34] LABS: Hematocrit 31.7 % (39.0-52.0); Hemoglobin 9.9 g/dL (13.0-18.0); Mean Corp Hgb Conc. 31.2 g/dL (33.0-37.0); Mean Corpuscular Volume 78.5 fL (80.0-94.0); Platelet Count 218 10^3/uL (130-400); Red Cell Dist. Width 14.6 % (11.5-14.5)
[2025-01-06 06:04] LABS: Blood Urea Nitrogen 19 mg/dl (9-20); Calcium 8.3 mg/dl (8.4-10.2); Carbon Dioxide 21 mmol/L (22-30); Chloride 109 mmol/L (98-107); Estimated Creatinine Clearance 58 ml/min; Glucose 112 mg/dl (70-99); Potassium 4.2 mmol/L (3.5-5.1); Sodium 135 mmol/L (135-145); eGFR > 60.00
[2025-01-06] MEDS: STERILE WATER FOR INJECTION 10 ML IV (06:11)
[2025-01-06] MEDS: MAXIPIME 1000 MG IV (06:12)
[2025-01-06 07:28] VITALS: BP 141/66
[2025-01-06] MEDS: HEPARIN 5000 UNITS SC (07:28)
[2025-01-06] MEDS: LOW STRENGTH ASPIRIN 81 MG PO (07:31)
[2025-01-06] MEDS: PLAVIX 75 MG PO (07:31)
[2025-01-06] MEDS: PROTONIX 40 MG PO (07:31)
[2025-01-06] MEDS: TOPROL XL 50 MG PO (07:33)
[2025-01-06] MEDS: PACERONE 200 MG PO (07:34)
[2025-01-06] MEDS: COLACE 100 MG PO (07:35)
[2025-01-06] MEDS: SENOKOT 17.2 MG PO (07:35)
[2025-01-06 10:27] VITALS: BP 149/71; PULSE 76
--- NOTE | 2025-01-06 10:35 | W.PN.HOSP.TC ---
Today's Communication/Plan
-
see A/P
DC with HH today
Assessment / Plan
Assessment / Plan
HPI: 74-year-old male with past medical history significant for dyslipidemia, CAD s/p CABG, paroxysmal atrial fibrillation; who presented to for evaluation of change in mental status (he apparently was unable to find his way out of his apartment
so called EMS for assistance).
Patient states he was seen at Urgent Care on Friday and prescribed an antibiotic but does not recall which one for suspected UTI. He was brought here today for rigors and dehydration.
A/P:
# Acute metabolic encephalopathy/change in mental status, due to sepsis POA with BL pyelonephritis
CT AP showed bilateral perinephric fat stranding reflect pyelonephritis.
Admission blood cultures growing E. coli, sensitivity reviewed
Urine culture negative, repeat blood culture negative
Can deescalate cefepime to PO Keflex upon discharge , cont for 11 more days (total 14 days)
PT OT recc HH
# Acute kidney injury, resolved
SCr 2.5 -> 1.2, from baseline 1.2
Observe off additional IVF
monitor BMP
Cont bladder scan and retention protocol
# Dysthymia
pt requesting psych eval for feeling depressed. He denies to suicide/homicide ideation
Appreciate Psych input
Recc further psych eval outpt
# CAD s/p CABG
# Hyperlipidemia
continue aspirin, clopidogrel
continue atorvastatin
# paroxysmal atrial fibrillation
continue amiodarone
Cont metoprolol with hold parameter
# Mild hyponatremia
Code status: full code
DVT prophylaxis: heparin sq
Dispo: HH per PT OT
DW CM
Anticipated Discharge: Today
Subjective/Interval History
-
Date of Service: January 06, 2025
Objective Data
-
Labs:
Laboratory Results
01/06/25
05:15
WBC 9.5
Hgb 9.9 L
Hct 31.7 L
Plt Count 218
Sodium 135
Potassium 4.2
Chloride 109 H
Carbon Dioxide 21 L
BUN 19
Creatinine 1.2
Glucose 112 H
Calcium 8.3 L
Vital Signs:
Vital Signs
Temp Pulse Resp BP Pulse Ox
36.8 C 58 18 141/66 98
01/06/25 07:28 01/06/25 07:33 01/06/25 07:28 01/06/25 07:33 01/06/25 07:28
I&O
01/05/25 01/06/25 01/07/25
06:59 06:59 06:59
Intake Total 500 / 500 960 / 960
Output Total 150 / 150 2470 / 2470
Balance 350 / 350 -1510 / -1510
Review of Systems
-
History Source: Patient
All other systems: Reviewed and negative
Physical Exam
-
General: Well Developed, Well Nourished, No Apparent Distress, Comfortable and Conversant; Negative Respiratory Distress
HEENT: Normocephalic, Atraumatic, Nose Appears Normal and Ears Appear Normal; Negative Oxygen
Respiratory: Clear to Auscultation and Non Labored Respirations; Negative Accessory Resp Muscle Use
Cardiac: Regular Rhythm and S1/S2
GI: Soft, Nontender, Nondistended and Normal Bowel Sounds
Skin: Warm and Dry
Neuro: Awake and Alert
Psych: Calm and Intact Judgement/Insight (somewhat)
Data Reviewed
-
Labs: Labs Reviewed by me
[2025-01-06 10:47] VITALS: BP 143/64
--- NOTE | 2025-01-06 10:51 | CM ---
CM following for discharge planning. Pt is current with [facility] and will be a resumption of care.
Plan: Discharge to home with VN today.
--- NOTE | 2025-01-06 10:54 | CM ---
[facility]. Brando lives alone in an apartment with 2 entry steps and and elevator to get to the 2nd floor.
Pt is to be discharged to home today with res[facility]; confirmed with Maribel Al.
--- NOTE | 2025-01-06 13:13 | W.DCSUMMARY ---
Discharge Summary
Discharge Data
Date of Admission: 01/03/25
Date of Discharge: 01/06/25
Total time spent discharging patient (in min): 40
-
Pending Results: No
Hospital Course
Principal Diagnosis:
Acute metabolic encephalopathy/change in mental status, due to sepsis with E. coli bacteremia and bilateral pyelonephritis
Acute kidney injury, resolved
Dysthymia
Chronic Diagnoses:�
CAD s/p CABG
Hyperlipidemia
Paroxysmal atrial fibrillation, on amiodarone and metoprolol
Consultations:�
Psychiatry
Procedures:�
None
Clinical course:�
This is a 74-year-old male with past medical history as stated above, who presented with confusion/change in mental status.
Problem 1:
Acute metabolic encephalopathy/change in mental status, due to sepsis with E. coli bacteremia and bilateral pyelonephritis.
His CT AP showed bilateral perinephric fat stranding reflect pyelonephritis.
His admission blood culture grew E. coli (sensitivity reviewed).
Inherently, his urine culture was negative. His repeat blood culture was also negative.
He received cefepime while in the hospital, and was discharged with oral Keflex for 11 more days (total 14 days).
Bladder scan was performed, and he does not have any urinary retention.
He was discharged home with home health per PT OT recommendation.
Problem 2:
Acute kidney injury, resolved.
His serum creatinine improved from 2.5 to 1.2, which is at his baseline.
Problem 3:
Dysthymia.
The patient requested psych eval for feeling depressed. He denied to suicide/homicide ideation.
He declined medical therapy. He was recommended to continue follow-up with psychiatrist outpatient.
As for the rest of his medical problems, they were stable during his hospital stay.
Discharge Plan
-
Patient Disposition: Home with Home Care
Discharge Diagnosis/Procedures: Acute metabolic encephalopathy/change in mental status due to sepsis with BL pyelonephritis (with E coli, sensitive to Keflex);
Resolved acute kidney injury
Condition: Fair
Diet: As tolerated
Activity: As tolerated
Referrals:
Fariba Martinez MD [Family Provider, [facility]] - in less than 1 week
Additional Discharge Medication Instructions: Continue Keflex for 11 more days
Prescriptions:
New
cephalexin 500 mg capsule
500 mg PO Q12H 11 Days Qty: 22 0RF
Continued
aspirin 81 mg Tablet,Chewable
81 mg PO DAILY Qty: 0 0RF
sennosides [Lissy-mt] 8.6 mg Tablet
17.2 mg PO DAILY 30 Days Qty: 60 0RF
losartan 25 mg Tablet
25 mg PO DAILY@2000 30 Days Qty: 30 0RF
docusate sodium 100 mg Capsule
100 mg PO BID 30 Days Qty: 60 0RF
atorvastatin 80 mg Tablet
80 mg PO QPM 30 Days Qty: 30 0RF
acetaminophen 325 mg Tablet
650 mg PO Q4HPRN PRN (Reason: mild pain,headache,) Qty: 0 0RF
amiodarone [Pacerone] 200 mg Tablet
200 mg PO BID 30 Days Qty: 60 0RF
metoprolol succinate 50 mg Tablet Extended Release 24 Hr
50 mg PO DAILY 30 Days Qty: 30 0RF
clopidogrel 75 mg Tablet
75 mg PO DAILY 30 Days Qty: 30 0RF
pantoprazole 40 mg Tablet,Delayed Release (Dr/Ec)
40 mg PO DAILY 30 Days Qty: 30 0RF
Discharge Orders:
Discharge Patient (As Directed); Ordered 01/06/25
Ordered By: Ana Cristina Lechuga
Discharge Date and Time
Print Language: AFGHAN
[2025-01-06 14:39] VITALS: BP 147/69
== END 2025-01-06 15:31 | disposition home health service (06) | DRG 871 ==
LOC: 3 WEST ACU 18:19
PROVIDERS: Emergency Medicine; Nurse Practitioner Family; ADMITTING PHYSICIAN Internal Medicine; CONSULT PHYSICIAN Psychiatry & Neurology Psychiatry; EMERGENCY PHYSICIAN Emergency Medicine; FAMILY PHYSICIAN Family Medicine
DX: A41.51 Sepsis due to Escherichia coli [E. coli] (principal); G93.41 Metabolic encephalopathy; N12 Tubulo-interstitial nephritis, not specified as acute or chronic; E87.1 Hypo-osmolality and hyponatremia; N17.9 Acute kidney failure, unspecified; E78.00 Pure hypercholesterolemia, unspecified; I25.10 Atherosclerotic heart disease of native coronary artery without angina pectoris; I48.0 Paroxysmal atrial fibrillation; F34.1 Dysthymic disorder; F43.20 Adjustment disorder, unspecified; E86.0 Dehydration; E66.9 Obesity, unspecified; Z60.2 Problems related to living alone; Z68.30 Body mass index [BMI] 30.0-30.9, adult; Z95.1 Presence of aortocoronary bypass graft; Z87.891 Personal history of nicotine dependence
CPT/HCPCS: 70450; 74176; 80048; 80053; 81003; 81015; 83605; 83735; 85025; 85027; 86803; 87040; 87077; 87086; 87154; 87186; 87205; 96361; 96374; 97129; 97162; 97166; 97535; 99285

== ENCOUNTER → 2025-02-14 10:30 | Outpatient (REF) | payer MEDICARE, OTHER, SELFPAY | LOC: RCS 10:30 | PROVIDERS: ATTENDING PHYSICIAN Physician Assistant Medical; FAMILY PHYSICIAN Family Medicine | DX: I25.10 Atherosclerotic heart disease of native coronary artery without angina pectoris (principal); I21.4 Non-ST elevation (NSTEMI) myocardial infarction | CPT/HCPCS: 93306 ==

== ENCOUNTER 2025-02-18 10:39 | Outpatient (RCR) | payer MEDICARE, OTHER, SELFPAY | END 2025-02-18 23:59 | disposition home or self-care (01) | LOC: CRHB 10:39 | PROVIDERS: ATTENDING PHYSICIAN Thoracic Surgery (Cardiothoracic Vascular Surgery) | DX: Z95.1 Presence of aortocoronary bypass graft (principal) | CPT/HCPCS: G0422; G0423 ==

== ENCOUNTER 2025-03-18 10:00 | Outpatient (RCR) | payer MEDICARE, OTHER, SELFPAY | END 2025-03-18 23:59 | disposition home or self-care (01) | LOC: CRHB 10:00 | PROVIDERS: ATTENDING PHYSICIAN Thoracic Surgery (Cardiothoracic Vascular Surgery) | DX: I25.10 Atherosclerotic heart disease of native coronary artery without angina pectoris (principal); Z95.1 Presence of aortocoronary bypass graft (principal) | CPT/HCPCS: G0422; G0423 ==

== ENCOUNTER 2025-04-20 10:01 | Outpatient (RCR) | payer MEDICARE, OTHER, SELFPAY ==
[2025-04-07 11:46] LABS: HDL Cholesterol 32 mg/dl; LDL Cholesterol, Calculated 45 mg/dl; Very Low Density Lipoprotein 17 mg/dl (0-30)
== END 2025-04-20 23:59 | disposition home or self-care (01) ==
LOC: CRHB 10:01
PROVIDERS: ATTENDING PHYSICIAN Internal Medicine Interventional Cardiology; FAMILY PHYSICIAN Family Medicine; REFERRING PHYSICIAN Internal Medicine Cardiovascular Disease
DX: I25.10 Atherosclerotic heart disease of native coronary artery without angina pectoris (principal); Z95.1 Presence of aortocoronary bypass graft; I25.2 Old myocardial infarction
CPT/HCPCS: 36415; 80061; G0422; G0423